=== PATIENT | male | born 1970 | race Caucasian/White ===

== ENCOUNTER 2023-03-19 19:36 | Emergency (ER) | payer SELFPAY ==
[2023-03-19 19:39] VITALS: BP 169/112
[2023-03-19 20:00] LABS: % Basophils 0.7 % (0-2); % Immature Granulocytes 0.6 % (0-0.5); % Lymphocytes 30.2 % (20.5-51.1); % Monocytes 11.4 % (1.7-9.3); % Neutrophils 55.1 % (42.2-75.2); Absolute Basophils 0.1 10^3/uL (0-0.2); Absolute Eosinophils 0.2 10^3/uL (0-0.7); Absolute Immature Granulocytes 0.1 10^3/uL (0-0.05); Absolute Lymphocytes 3.3 10^3/uL (1.2-3.4); Absolute Monocytes 1.2 10^3/uL (0.1-0.6); Absolute Neutrophils 5.9 10^3/uL (1.4-6.5); Hematocrit 44.4 % (39.0-52.0); Hemoglobin 15.7 g/dL (13.0-18.0); Mean Corp Hgb Conc. 35.4 g/dL (33.0-37.0); Mean Corpuscular Hgb 31.2 pg (27.0-31.0); Mean Corpuscular Volume 88.1 fL (80.0-94.0); Mean Platelet Volume 10.7 fL (7.4-10.4); Nucleated Red Blood Cells % 0 % (-); Platelet Count 229 10^3/uL (130-400); Red Blood Cell Count 5.04 10^6/uL (4.70-6.10); Red Cell Dist. Width 12.4 % (11.5-14.5); White Blood Cell Count 10.8 10^3/uL (4.8-10.8)
[2023-03-19 20:12] LABS: ALT (SGPT) 122 U/L (0-50); AST (SGOT) 62 U/L (17-59); Albumin 4.3 g/dl (3.5-5.0); Alkaline Phosphatase 68 U/L (38-126); Blood Urea Nitrogen 18 mg/dl (9-20); Calcium 9.1 mg/dl (8.4-10.2); Carbon Dioxide 31 mmol/L (22-30); Chloride 103 mmol/L (98-107); Glucose 106 mg/dl (70-99); Lipase 125 U/L (23-300); Potassium 4.4 mmol/L (3.5-5.1); Sodium 137 mmol/L (135-145); Total Bilirubin 0.6 mg/dl (0.2-1.3); Total Protein 7.1 g/dl (6.3-8.2); eGFR > 60.00
[2023-03-19 20:23] LABS: Troponin I < 0.012 ng/ml
[2023-03-19 20:33] VITALS: BMI 43.8
[2023-03-19 20:57] VITALS: BP 156/97
--- NOTE | 2023-03-19 22:28 | ED.GENMED ---
History of Present Illness
General
Chief Complaint: Chest Pain
Source: patient
Time Seen by Provider: 03/19/23 21:48
Travel History
Have you had any contact with someone who has COVID-19?: No
Do you have any symptoms of coronavirus? Fever > 100 degrees, chills, cough, shortness of breath, sore throat, loss of taste or smell, muscle aches, or headache?: No
History of Present Illness
History of Present Illness:
52-year-old male with past medical history of GERD and hyperlipidemia presenting to the emergency department from urgent care after he started experiencing some pain in his left upper chest for the last 3 days, attributed to his GERD that he had had
in the past and was taking Nexium for this and while he was having some relief with the Nexium still noted about 2 out of 10 discomfort. Patient went to urgent care and had an EKG done but was advised to come to the ER for further evaluation.
Patient states that he is aware that he is overweight and that his blood pressure was elevated and that he could fix some of the social factors in his life that could contribute to heart disease. He notes that during the 3 days he also made sure
his diet was improved. He also states that he will often drink 2-3 alcoholic beverages per day and he had not been doing this during the last 3 days. Patient denies any family history of cardiac disease. He denies any smoking history. He has no
other concerns at this time. He did state that today the pain did seem a little bit more reproducible to palpation.
Past History
Past History
ED Past Medical History: GERD and Hypercholesterolemia
ED Past Surgical History: Orthopedic
Social History
Tobacco: Non-smoker
Alcohol: Daily
Drug: None
Personal:
Living: with family
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
Review of Systems
Review of Systems
All Other Systems: ROS reviewed and negative except as documented in HPI and ROS
Phy Exam
Physical Exam
Physical Exam:
GENERAL: Alert , in no apparent distress
EYE: conjunctiva clear
NECK: Supple
ENT: o/p clr, mmm.
CARDIAC: Regular rate and rhythm, no murmur
LUNGS: Clear breath sounds bilaterally, no acute respiratory distress, no wheezes/rales/rhonchi
Abdomen: Soft, nontender, nondistended
NEUROLOGICAL: Alert and oriented
SKIN: Warm and dry, skin intact.
MUSCULOSKELETAL: well perfused.
PSYCH: Normal and appropriate interaction.
Scores
Heart Failure Risk
Heart Failure Risk Score: Not Applicable
Heart Score for Chest Pain Patients
STEMI patient?: No
History: Slightly or Non-Suspicious
ECG: Normal
Age: >45 - <65 years
Risk Factors: 1 or 2 Risk Factors
Troponin: </= Normal Limit
Heart Score for Chest Pain Patients: 2
Heart Score Risk: 2.5% MACE over next 6 weeks
Withdrawal Assessment of Alcohol
Withdrawal Assessment Completed?: Not applicable
Course
Orders/Labs/Results
Orders:
Orders
03/19/23 19:38
EKG [Electrocardiogram (*1)] Urgent
Reason for Study: Chest Pain
EKG- Treatment ONCE
03/19/23 19:53
CBC/With Diff [Complete Blood Count/With Diff] Urgent
CMP [Comprehensive Metabolic Panel] Urgent
Lipase Urgent
Troponin I Urgent
03/19/23 22:01
CR Chest - 2 Views Urgent
Comment:
Reason For Exam: chest pain
Abnormal Lab Results
03/19/23
19:53
MCH 31.2 H pg
(27.0-31.0)
MPV 10.7 H fL
(7.4-10.4)
Abs Immat Gran (auto) 0.1 H 10^3/uL
(0-0.05)
Absolute Monos (auto) 1.2 H 10^3/uL
(0.1-0.6)
Immature Gran % 0.6 H %
(0-0.5)
Monocytes % 11.4 H %
(1.7-9.3)
Carbon Dioxide 31 H mmol/L
(22-30)
Glucose 106 H mg/dl
(70-99)
AST 62 H U/L
(17-59)
ALT 122 H U/L
(0-50)
03/19/23 19:53
03/19/23 19:53
Vital Signs
Initial and Last Documented VS:
Initial Vital Signs
Temp Pulse Resp BP Pulse Ox
97.9 F 89 18 169/112 97
03/19/23 19:39 03/19/23 19:39 03/19/23 19:39 03/19/23 19:39 03/19/23 19:39
Last Documented Vital Signs
Temp Pulse Resp BP Pulse Ox
97.9 F 91 17 156/97 97
03/19/23 19:39 03/19/23 21:45 03/19/23 21:45 03/19/23 20:57 03/19/23 19:39
MDM/Problems Addressed
Differential Diagnosis Includes:
GERD, gastritis, muscular etiology, minimal concern for ACS although patient does have some risk factors for this
MDM/Problems Addressed:
52-year-old male present emergency department for evaluation of 3 days of left upper chest wall discomfort. Patient does note since starting his Nexium again he has had improvement of his symptoms. He also notes that pain was a little bit
reproducible today. Patient does have risk factors including likely hypertension given his blood pressure here, hyperlipidemia and he is overweight. Patient also drinks alcohol mostly daily. Patient's workup that was initiated in triage is
largely unremarkable including a negative troponin and a nonischemic EKG. Patient was informed of his LFTs which is likely related to his alcohol use. Will add on a chest x-ray to patient's workup but overall I am not suspicious for ACS but given
his risk factors would like patient to follow-up with cardiology for further outpatient management.
Chronic conditions affecting care: Other (GERD and hyperlipidemia)
Acute Exacerbation and/or Progression of Chronic Illness: Other (GERD)
*Radiology
Radiology exam reviewed: preliminary read by ED provider (Normal chest x-ray)
*Pulse Oximetry
Patient hypoxic: no
*EKG
Interpreted by ED Provider?: Yes
Comparison EKG: no comparison EKG present
Heart Rate: 88
Rate: normal
Rhythm: sinus
[place]: normal axis
Ischemia: no ischemia
*Aligner Barrel And Receiver Interpretation
Rate: normal
Rhythm: sinus
*Critical Care Note
Total Time (30-74mins, 75-104mins- exclusive of procedures): Not Applicable
Patient Management
Escalation/DeEscalation of care consider admission/obs:
Patient's workup is unremarkable. He was advised to continue some of the lifestyle modifications he initiated over the last 3 days. Provided with information for cardiology follow-up as well as notified outpatient cardiology to help expedite
patient's follow-up. Aware of return precautions but otherwise stable for discharge home.
ED Attending Note
-
Portions of this chart may have been created with voice recognition software.� Occasional wrong word or��sound alike� substitutions may have occurred due to the inherent limitations of voice recognition software.
Discharge Plan
Departure
Patient Disposition: Home (Routine Discharge)
Date of Disposition: 03/19/23
Time of Disposition: 22:32
Patient with high blood pressure during this ER visit?: Yes
Discharge Problem:
Chest pain
Instructions: Chest Pain (DC), Chest Pain DCA Follow Up
Prescriptions:
No Action
atorvastatin 20 mg Tablet
20 mg PO DAILY
mesalamine 1.2 gram Tablet,Delayed Release (Dr/Ec)
1.2 g PO TID
Referrals:
Car Campos MD [Active] - (Cardiology)
Interventions
Interventions:
*Risk Screen - Suicide Last Done: 03/19/23 19:39
*General Assessment Last Done: 03/19/23 19:39
*Neglect/Abuse Screening Last Done: 03/19/23 19:39
ED- Fall Risk Assessment Last Done: 03/19/23 20:33
*ED COVID-19 Vaccine History Last Done: 03/19/23 19:39
*Nursing Disposition Last Done: 03/19/23 22:57
ED- Cardiac Assessment Last Done: 03/19/23 20:33
== END 2023-03-19 22:58 | disposition home or self-care (01) ==
LOC: EMR 19:36
PROVIDERS: Emergency Medicine; EMERGENCY PHYSICIAN Emergency Medicine; FAMILY PHYSICIAN Family Medicine
DX: R07.89 Other chest pain (principal); R03.0 Elevated blood-pressure reading, without diagnosis of hypertension; K21.9 Gastro-esophageal reflux disease without esophagitis; E78.00 Pure hypercholesterolemia, unspecified; E66.3 Overweight
CPT/HCPCS: 99283; 71046; 80053; 83690; 84484; 85025; 93005

== ENCOUNTER 2023-05-17 13:03 | Emergency (ER) | payer OTHER, SELFPAY ==
[2023-05-17 13:25] VITALS: BP 161/108
[2023-05-17 13:50] LABS: % Basophils 0.7 % (0-2); % Eosinophils 1.6 % (0-6); % Immature Granulocytes 0.4 % (0-0.5); % Lymphocytes 24.9 % (20.5-51.1); % Monocytes 11.5 % (1.7-9.3); % Neutrophils 60.9 % (42.2-75.2); Absolute Basophils 0.1 10^3/uL (0-0.2); Absolute Eosinophils 0.2 10^3/uL (0-0.7); Absolute Lymphocytes 2.4 10^3/uL (1.2-3.4); Absolute Monocytes 1.1 10^3/uL (0.1-0.6); Absolute Neutrophils 5.9 10^3/uL (1.4-6.5); Hemoglobin 16.7 g/dL (13.0-18.0); Mean Corp Hgb Conc. 36.3 g/dL (33.0-37.0); Mean Corpuscular Hgb 31.7 pg (27.0-31.0); Mean Corpuscular Volume 87.3 fL (80.0-94.0); Mean Platelet Volume 11.2 fL (7.4-10.4); Nucleated Red Blood Cells % 0 % (-); Platelet Count 204 10^3/uL (130-400); Red Blood Cell Count 5.27 10^6/uL (4.70-6.10); Red Cell Dist. Width 12.5 % (11.5-14.5); White Blood Cell Count 9.6 10^3/uL (4.8-10.8)
[2023-05-17 13:57] LABS: ALT (SGPT) 100 U/L (0-50); AST (SGOT) 57 U/L (17-59); Albumin 4.7 g/dl (3.5-5.0); Alkaline Phosphatase 58 U/L (38-126); Blood Urea Nitrogen 15 mg/dl (9-20); Calcium 9.8 mg/dl (8.4-10.2); Carbon Dioxide 25 mmol/L (22-30); Chloride 101 mmol/L (98-107); Glucose 105 mg/dl (70-99); Sodium 136 mmol/L (135-145); Total Bilirubin 0.8 mg/dl (0.2-1.3); Total Protein 7.5 g/dl (6.3-8.2); eGFR > 60.00
[2023-05-17 14:09] LABS: Troponin I < 0.012 ng/ml
[2023-05-17 14:10] LABS: Potassium 4.5 mmol/L (3.5-5.1)
[2023-05-17 15:57] VITALS: BMI 42.0
[2023-05-17 16:02] VITALS: BP 162/117
--- NOTE | 2023-05-17 16:19 | ED.GENMED ---
History of Present Illness
General
Chief Complaint: Chest Pain
Source: patient
Exam Limitations: none
Time Seen by Provider: 05/17/23 15:53
Travel History
Have you had any contact with someone who has COVID-19?: No
Do you have any symptoms of coronavirus? Fever > 100 degrees, chills, cough, shortness of breath, sore throat, loss of taste or smell, muscle aches, or headache?: No
History of Present Illness
History of Present Illness:
52-year-old male history of hyperlipidemia alcohol use presents complaining of ongoing chest burning to the left upper chest radiating to the shoulders bilaterally. This has been fairly constant over the past 2 weeks. He was seen here 2 months ago
for the same. He made some lifestyle modifications at that time and decrease his alcohol intake and started Nexium. His symptoms are improving however the past 2 weeks his symptoms are worse. Traditionally has been made better with milk and
water. He also feels somewhat better when he is walking.. No recent travel or. No cough or fever. No pleuritic. No other complaints at this time
Past History
Past History
ED Past Medical History: GERD and Hypercholesterolemia
ED Past Surgical History: Orthopedic
Social History
Tobacco: Non-smoker
Alcohol: Daily
Drug: None
Personal:
Living: with family
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
Phy Exam
Physical Exam
Physical Exam:
General: Well-appearing male no acute respiratory distress
HEENT: Normocephalic atraumatic
Heart: Regular rate and rhythm no murmurs
Lungs: Clear to auscultation bilaterally no wheezing
Abdomen is soft nontender nondistended no guarding or rebound
Extremities: No cyanosis or edema
Skin: Warm no rash
Scores
Heart Score for Chest Pain Patients
STEMI patient?: No
History: Slightly or Non-Suspicious
ECG: Normal
Age: </= 45 years
Risk Factors: No Risk Factors
Troponin: </= Normal Limit
Heart Score for Chest Pain Patients: 0
Heart Score Risk: 2.5% MACE over next 6 weeks
Course
Orders/Labs/Results
Orders:
Orders
05/17/23 13:20
ECG [Electrocardiogram (*1)] Urgent
Reason for Study: Chest Pain
EKG- Treatment ONCE
05/17/23 13:24
CMP [Comprehensive Metabolic Panel] Urgent
Complete Blood Count/With Diff Urgent
Troponin I Urgent
05/17/23 16:16
Mag Hydrox/Al Hydrox/Simeth [Maalox] 30 ml Phenobarb/Hyoscy/Atropine/Scop [] 10 ml PO NOW
05/17/23 16:17
Mag Hydrox/Al Hydrox/Simeth [Maalox] 30 ml .ROUTE .STK-MED ONE
Phenobarb/Hyoscy/Atropine/Scop [] 10 ml .ROUTE .STK-MED ONE
Abnormal Lab Results
05/17/23
13:24
MCH 31.7 H pg
(27.0-31.0)
MPV 11.2 H fL
(7.4-10.4)
Absolute Monos (auto) 1.1 H 10^3/uL
(0.1-0.6)
Monocytes % 11.5 H %
(1.7-9.3)
Glucose 105 H mg/dl
(70-99)
ALT 100 H U/L
(0-50)
05/17/23 13:24
05/17/23 13:24
Vital Signs
Initial and Last Documented VS:
Initial Vital Signs
Temp Pulse Resp BP Pulse Ox
98.4 F 84 18 161/108 97
05/17/23 13:25 05/17/23 13:25 05/17/23 13:25 05/17/23 13:25 05/17/23 13:25
Last Documented Vital Signs
Temp Pulse Resp BP Pulse Ox
98.4 F 81 14 150/98 93
05/17/23 13:25 05/17/23 17:00 05/17/23 17:00 05/17/23 17:00 05/17/23 17:00
MDM/Problems Addressed
Differential Diagnosis Includes:
Chest pain. Constant in nature somewhat atypical for ACS however given risk factors including age, weight and hyperlipidemia will do cardiac workup. EKG and troponin pending. Patient describes symptoms are made better with milk and water and
Nexium. Question possible GERD. He had a negative workup last time. I reviewed blood work from this visit. Troponin is undetectable. No PE risk factors. He is not tachycardic nor is he hypoxic. Will try GI cocktail
*Critical Care Note
Total Time (30-74mins, 75-104mins- exclusive of procedures): Not Applicable
Update Note
Update Note:
Patient feeling somewhat better after GI cocktail. GERD potentially possibility of source of his chest discomfort. Given his risk factors we will continue to have him see cardiology for follow-up. No indication for admission at this time.
Patient verbalized understanding stable for discharge
ED Attending Note
-
Portions of this chart may have been created with voice recognition software.� Occasional wrong word or��sound alike� substitutions may have occurred due to the inherent limitations of voice recognition software.
Discharge Plan
Departure
Patient Disposition: Home (Routine Discharge)
Date of Disposition: 05/17/23
Time of Disposition: 17:38
Patient with high blood pressure during this ER visit?: No
Discharge Problem:
Chest pain
Instructions: Chest Pain DCA Follow Up
Prescriptions:
New
pantoprazole [Protonix] 40 mg tablet,delayed release (DR/EC)
40 mg PO DAILY Qty: 14 0RF
No Action
atorvastatin 20 mg Tablet
20 mg PO DAILY
mesalamine 1.2 gram Tablet,Delayed Release (Dr/Ec)
1.2 g PO TID
Referrals:
Barry Andrews, DO [Family Provider] -
Activity Restrictions/Additional Instructions:
Please return for worsening symptoms otherwise follow-up with cardiology and/or GI. Take Protonix as directed. Return if worse otherwise
Interventions
Interventions:
*Risk Screen - Suicide Last Done: 05/17/23 15:57
*General Assessment Last Done: 05/17/23 15:57
*Neglect/Abuse Screening Last Done: 05/17/23 15:57
ED- Fall Risk Assessment Last Done: 05/17/23 15:57
*ED COVID-19 Vaccine History Last Done: 05/17/23 13:25
ED- Cardiac Assessment Last Done: 05/17/23 15:57
Discharge Date and Time
Print Language: KOREAN
[2023-05-17] MEDS: MAALOX 40 PO (16:25)
[2023-05-17 17:00] VITALS: BP 150/98
== END 2023-05-17 17:45 | disposition home or self-care (01) ==
LOC: EMR 13:03
PROVIDERS: Emergency Medicine; EMERGENCY PHYSICIAN Emergency Medicine; FAMILY PHYSICIAN Family Medicine
DX: R07.89 Other chest pain (principal); K21.9 Gastro-esophageal reflux disease without esophagitis; E78.00 Pure hypercholesterolemia, unspecified
CPT/HCPCS: 99283; 80053; 84484; 85025; 93005

== ENCOUNTER 2024-07-19 18:28 | Inpatient (IN) | payer OTHER, SELFPAY ==
[2024-07-19] VITALS (10 sets, daily range): BP systolic 123–159; BP diastolic 61–107; BMI 40.0
[2024-07-19 12:09] LABS: Hematocrit 37.6 % (39.0-52.0); Hemoglobin 13.1 g/dL (13.0-18.0); Mean Corp Hgb Conc. 34.8 g/dL (33.0-37.0); Mean Corpuscular Volume 88.9 fL (80.0-94.0); Platelet Count 36 10^3/uL (130-400); Red Blood Cell Count 4.23 10^6/uL (4.70-6.10); Red Cell Dist. Width 13.6 % (11.5-14.5); White Blood Cell Count 5.8 10^3/uL (4.8-10.8)
[2024-07-19 12:10] LABS: Band Neutrophils 13 % (0-3); Lymphocytes 21 % (20-51); Monocytes 10 % (2-9); Normal RBC Morphology Yes; Platelets Checked Yes; Segmented Neutrophils 56 % (42-75); Total Cells Counted 100
[2024-07-19 12:18] LABS: ALT (SGPT) 284 U/L (0-50); AST (SGOT) 318 U/L (17-59); Alkaline Phosphatase 120 U/L (38-126); Blood Urea Nitrogen 18 mg/dl (9-20); Calcium 8.3 mg/dl (8.4-10.2); Carbon Dioxide 24 mmol/L (22-30); Chloride 102 mmol/L (98-107); Glucose 172 mg/dl (70-99); Sodium 134 mmol/L (135-145); Total Bilirubin 8.4 mg/dl (0.2-1.3); eGFR > 60.00
--- NOTE | 2024-07-19 12:24 | ED.GENMED ---
History of Present Illness
General
Chief Complaint: Abdominal Symptoms
Source: patient and spouse
Exam Limitations: none
Time Seen by Provider: 07/19/24 11:56
History of Present Illness
History of Present Illness:
53yoM with a history of hyperlipidemia and ulcerative colitis presenting with his for evaluation of fevers. Symptoms have been ongoing for about 2 weeks. He is having daily fevers with a Tmax of 102.7. He is also having body aches, chills,
and malaise. He was seen at urgent care 4 days ago for the symptoms and had blood work. Platelets were mildly low at 106 but workup was otherwise unremarkable and he was told he likely had a virus. Patient followed up with his PCP yesterday and a
Lyme test was ordered which he was supposed to have done today. started to notice jaundice within the last 24 hours and his urine has started to appear a dark brown so he decided to come to the ED. He denies any recent travel. He thinks he
may have eaten a raw hamburger over Memorial weekend. He has also been doing a lot of work outside recentely. No known tick bites.
Past History
Past History
ED Past Medical History: GERD and Hypercholesterolemia
ED Past Surgical History: Orthopedic
Social History
Tobacco: Non-smoker
Alcohol: Daily
Drug: None
Personal:
Living: with family
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
Phy Exam
General Physical Exam
General Presentation: no apparent distress
General Skin: warm and dry
General Habitus: normal
General Mental: alert
ENT Exam
ENT Exam: normocephalic
Eye Exam
Eye Exam: other (Scleral icterus)
Cardiovascular Exam
Cardiovascular Exam: tachycardia
Pulmonary Exam
Pulmonary Exam: lungs clear, no respiratory distress, no rales, no crackles, no rhonchi and no wheezing
Gastrointestinal Exam
Gastrointestinal Exam: non tender, soft and non distended
Neurological Exam
Neurological Exam: alert
Dorys Coma Scale
Eye Opening: Spontaneous
Verbal Response: Oriented
Motor Response: Obeys Commands
GCS Total Score: 15
Skin Exam
Skin Exam: warm/dry and other (+Jaundice )
Psychiatric Exam
Psychiatric Exam: normal mood/affect
Course
Orders/Labs/Results
Orders:
Orders
07/19/24 11:13
Complete Blood Count/With Diff Urgent
Comprehensive Metabolic Panel Urgent
Lipase Urgent
Manual Differential Urgent
07/19/24 12:22
0.9% Sodium Chloride 1000 ml [Nss] 1,000 ml IV BOLUS
07/19/24 12:23
CT Abd/pelvis W Iv Cont Urgent
Comment:
Reason For Exam: fever, jaundice
CR Chest - 2 Views Urgent
Comment:
Reason For Exam: fever
07/19/24 12:47
COVID-19 Antigen Urgent
Source: Nasal Swab
Urinalysis Reflex To Culture Urgent
Date Specimen was Collected: 07/19/24
Time Specimen was Collected: 11:05
Urine Microscopic Reflex Cult Urgent
Influenza A+B Rapid Molecular Urgent
CHACHA Source: Nasal Swab
Specimen Description:
Urine Culture Urgent
CHACHA Source: U
Specimen Description:
Date Specimen was Collected: 07/19/24
Time Specimen was Collected: 11:05
07/19/24 13:58
Blood Culture Q30M
CHACHA Source: Blood/Venous
Specimen Description:
07/19/24 13:59
Hepatitis A IgM Antibody Urgent
Hepatitis B Core Ab, IgM Urgent
Hepatitis B Surface Antibody Urgent
Hepatitis B Surface Antigen Urgent
Hepatitis C Antibody Urgent
Lactate Level [Lactic Acid] Urgent
Lyme Progressive Urgent
Prothrombin Time Urgent
Tylenol [Acetaminophen] Urgent
Blood Parasites Urgent
CHACHA Source: Blood/Venous
Specimen Description:
07/19/24 14:58
Blood Culture Q30M
CHACHA Source: Blood/Venous
Specimen Description:
07/19/24 15:24
Piperacillin/Tazo 4.5 Gram [Zosyn] 4.5 gram in 100 ml IV NOW
07/19/24 15:35
0.9% Sodium Chloride 1000 ml [Nss] 1,000 ml IV BOLUS
07/19/24 16:24
Azithromycin 500 mg/250 ml [Zithromax Infusion] 500 mg in 250 ml IV NOW
07/19/24 17:30
Admit/Transfer Patient As Directed
Co-Sign Provider:
Level of Care: Inpatient admission
Assign to:: Telemetry
Physician / Group: [email or web address]
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
Reason for Telemetry: Other
Other Reason for Telemetry: sepsis
Date to Stop Telemetry: 07/21/24
Time to Stop Telemetry: 11:00
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
Expected length of stay greater than two midnights?: Yes
ELOS- Estimated Length of Stay in days: 3
I certify the patient meets the requirements for IP care: Yes
07/19/24 17:34
Code Status As Directed
Resuscitation Status: Full Code
07/21/24 11:00
DC Protocol for Telemetry ONCE
Abnormal Lab Results
07/19/24 07/19/24 07/19/24
11:13 12:47 13:59
RBC 4.23 L 10^6/uL
(4.70-6.10)
Hct 37.6 L %
(39.0-52.0)
Plt Count 36 L 10^3/uL
(130-400)
Band Neutrophils 13 H %
(0-3)
Monocytes (Manual) 10 H %
(2-9)
PT 15.9 H Sec
(11.4-14.6)
Sodium 134 L mmol/L
(135-145)
Glucose 172 H mg/dl
(70-99)
Calcium 8.3 L mg/dl
(8.4-10.2)
Total Bilirubin 8.4 H mg/dl
(0.2-1.3)
AST 318 H U/L
(17-59)
ALT 284 H U/L
(0-50)
Albumin 3.4 L g/dl
(3.5-5.0)
Urine Ketones 1+ A
(Negative)
Ur Occult Blood Reflex 4+ A
(Negative)
Urine Nitrite (Reflex) Positive A
(Negative)
Urine Bilirubin 3+ A
(Negative)
Urine Urobilinogen 4+ A
(Neg - 1+)
Leukocyte Esterase Rfl 2+ A
(Negative)
Urine Bacteria (Reflex) Many A
(Negative)
Urine Albumin (Reflex) 4+ A
(Neg - Trace)
Acetaminophen < 10 L ug/ml
(10-30)
07/19/24 11:13
07/19/24 11:13
Vital Signs
Initial and Last Documented VS:
Initial Vital Signs
Temp Pulse Resp BP Pulse Ox
99.5 F 116 20 133/107 97
07/19/24 11:00 07/19/24 11:00 07/19/24 11:00 07/19/24 11:00 07/19/24 11:00
Last Documented Vital Signs
Temp Pulse Resp BP Pulse Ox
102.8 F H 111 20 131/86 93
07/19/24 15:33 07/19/24 13:00 07/19/24 13:12 07/19/24 12:00 07/19/24 13:00
MDM/Problems Addressed
Differential Diagnosis Includes:
53yoM here with fevers and flu-like symptoms x 2 weeks. Daily fevers up to 102.7. Started to notice jaundice x 24 hours. HR 116 on arrival. Remainder of triage vitals are normal. Scleral icterus noted on exam. Differential diagnosis includes but is
not limited to: tick borne illness, viral illness, cholecystitis, cholangitis, malignancy, sepsis
Initial ED plan: Check full workup including blood cultures, Lyme testing, blood parasite smear, INR, COVID/flu swab, CXR, and CT abdomen.
*Pulse Oximetry
Patient hypoxic: no (97%)
*Critical Care Note
Total Time (30-74mins, 75-104mins- exclusive of procedures): Not Applicable
Update Note
Update Note:
Labs reveal a platelet count of 36, bands of 13%, and total bilirubin of 8.4. There was a delay in CT/workup due to difficult IV access. IV Zosyn ordered while workup was in progress. 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
with 9% parasitemia. IV azithromycin ordered and patient admitted for further management.
ED Attending Note
-
Portions of this chart may have been created with voice recognition software.� Occasional wrong word or��sound alike� substitutions may have occurred due to the inherent limitations of voice recognition software.
Discharge Plan
Departure
Patient Disposition: Admit
Date of Disposition: 07/19/24
Time of Disposition: 16:55
Presentation/result/management discussed w/ accepting MD/DO: Hospitalist
Discharge Problem:
Babesiosis, Thrombocytopenia, Jaundice
Prescriptions:
No Action
mesalamine 1.2 gram Tablet,Delayed Release (Dr/Ec)
1.2 g PO TID
metformin 500 mg Tablet
500 mg PO DAILY
Patient Comments:
as of 07/18/24 patient md told him n ot to take this anymore
acetaminophen [Tylenol] 325 mg Tablet
650 mg PO Q4HPRN PRN (Reason: mild pain)
Theragen Tablet
1 tab PO DAILY
ibuprofen [Advil] 200 mg Tablet
400 mg PO Q6HPRN PRN (Reason: mild pain)
rosuvastatin [Crestor] 20 mg Tablet
20 mg PO QPM
Referrals:
Sp Lindsey MD [Family Provider]
Discharge Date and Time
Print Language: MALAGASY
[2024-07-19 12:54] LABS: Albumin 3.4 g/dl (3.5-5.0); Potassium 4.7 mmol/L (3.5-5.1)
[2024-07-19 13:06] LABS: Urine Albumin 4+ (Neg - Trace); Urine Bilirubin 3+ (Negative); Urine Character Cloudy (Clear); Urine Color Amber; Urine Glucose Negative (Negative); Urine Ketone 1+ (Negative); Urine Leukocyte 2+ (Negative); Urine Nitrite Positive (Negative); Urine Occult Blood 4+ (Negative); Urine Specific Gravity 1.015 (<1.030); Urine Urobilinogen 4+ (Neg - 1+)
[2024-07-19 13:09] LABS: Lipase 71 U/L (23-300)
[2024-07-19 13:34] LABS: COVID-19 Antigen Negative (Negative)
[2024-07-19 13:46] LABS: Urine Bacteria Many (Negative); Urine Red Blood Cell 0-2 /HPF (0-2); Urine Squamous Cell 0-2 /LPF (Few)
[2024-07-19] MEDS: NSS 1000 IV ×3 (14:11→20:24)
[2024-07-19 14:26] LABS: Lactic Acid 1.2 mmol/L (0.7-2.0)
[2024-07-19 14:47] LABS: Acetaminophen < 10 ug/ml (10-30)
[2024-07-19 14:52] LABS: INR 1.21; PT 15.9 Sec (11.4-14.6)
[2024-07-19] MEDS: ZOSYN 100 IV (15:38)
[2024-07-19] MEDS: ZITHROMAX INFUSION 250 IV (17:03)
--- NOTE | 2024-07-19 17:08 | HPS.HSE ---
Addendum entered and electronically signed by Rigoberto Atkins MD 07/20/24 09:35:
Correction:
Sepsis due to Babesiosis Percent parasitemia: 9%
POS Blood parasite smear came back positive for babesiosis.
CT suggestive of Bibasilar PNA
Of note : [place] the [place] , felt like he j=had insect bite on [address] but did not see Ticks
- f/i T , [facility]
- BCx sent
- NS septic fluid
- will start <del>IV</del> PO atovaquone 750mg BID and cont IV AZT 500 mg daily per ID consult
- LDH daily 4 days
- Tylenol PRN
- ID consult
Addendum entered and electronically signed by Rigoberto Atkins MD 07/19/24 21:34:
Immunocompetent host
Noted severe thrombocytopenia
CT AP suggest Hepatomegaly and diffuse hepatic steatosis. Bandlike areas of hypoattenuation within the spleen may reflect old infarcts and/or underlying hemangiomas.
Suspect moderate to severe babesiosis with POS peripheral smear for 9 % percent parasitemia
Original Note:
Family Physician
-
Family Physician: Sp Lindsey MD
Chief Complaint
-
daily fever for last 2 weks
History of Present Illness
HPI
53M HX hyperlipidemia and ulcerative colitis presenting with his for evaluation of fevers for last 2weeks
- daily fevers with a T max of 102.
- POS body aches, chills, and malaise
- seen at urgent care 4 days ago for the symptoms and had blood work
- Low Platelets at 106 but workup was otherwise unremarkable and he was told he likely had a virus.
- Patient followed up with his PCP yesterday and a Lyme test was ordered.
- started to notice jaundice within the last 24 hours and his urine has started to appear a dark brown.
- He was in the wood on Wednesday , felt like he j=had insect bite on [address] but did not see Ticks
He denies any recent travel. He thinks he may have eaten a raw hamburger over .
Medical History
Past Medical History
Past Medical History: Reports GERD and Hypercholesterolemia
Past Surgical History: Reports None
Social History
Tobacco: Non-smoker
Alcohol: Occasional
Drug: None
Personal:
Family History
Family History: Not pertinent
Allergies / Home Medications
Allergies reflects when Allergies were last updated in [employer].
Home Medications with original date entered in [employer]
Allergy/Medication List:
Allergies
Allergy/AdvReac Type Severity Reaction Status Date / Time
No Known Allergies Allergy Verified 07/19/24 11:00
Home Medications
atorvastatin 20 mg tablet 20 mg PO DAILY 03/19/23
mesalamine 1.2 gram tablet,delayed release 1.2 g PO TID 03/19/23
pantoprazole 40 mg tablet,delayed release (Protonix) 40 mg PO DAILY #14 tabs 05/17/23
Review of Systems
-
Constitutional: Reports See HPI and Fever
EENT: Reports No Symptoms
Respiratory: Reports No Symptoms
Cardiac: Reports No Symptoms
Abdomen/GI: Reports No Symptoms
: Reports No Symptoms
Musculoskeletal: Reports No Symptoms
Skin: Reports No Symptoms
Neurological: Reports No Symptoms
Endocrine: Reports No Symptoms
Hematologic/Lymphatic: Reports No Symptoms
Psych: Reports No Symptoms
Physical Exam
Vital Signs
Vital Signs
Temp Pulse Resp BP Pulse Ox
102.8 F H 111 20 131/86 93
07/19/24 15:33 07/19/24 13:00 07/19/24 13:12 07/19/24 12:00 07/19/24 13:00
Physical Exam
General: Well Developed, Well Nourished and No Apparent Distress
HEENT: NormoCephalic, Moist mucous membranes and Atraumatic
Respiratory: Clear
Cardiac: S1/S2 and Regular Rhythm; No Murmur or Rub
GI: Soft, Non Tender, Non Distended and Normal Bowel Sounds; No Organomegaly
Rectal: Deferred by Provider
Musculoskeletal: No Clubbing, No Cyanosis and No Edema
Skin: No Rash
Neuro: Nonfocal/grossly intact
Laboratory Results
-
07/19/24 11:13
07/19/24 11:13
Laboratory Results
PT 15.9 Sec (11.4-14.6) H 07/19/24 13:59
INR 1.21 07/19/24 13:59
Lactic Acid 1.2 mmol/L (0.7-2.0) 07/19/24 13:59
Total Bilirubin 8.4 mg/dl (0.2-1.3) H 07/19/24 11:13
AST 318 U/L (17-59) H 07/19/24 11:13
ALT 284 U/L (0-50) H 07/19/24 11:13
Alkaline Phosphatase 120 U/L (38-126) 07/19/24 11:13
Lipase 71 U/L (23-300) 07/19/24 11:13
Data Reviewed
-
CT Scan: Report Reviewed by me
Lab Data: Labs Reviewed by me
Impression/Plan
-
Vital Signs
Temp Pulse Resp BP Pulse Ox
102.8 F H 111 20 131/86 93
07/19/24 15:33 07/19/24 13:00 07/19/24 13:12 07/19/24 12:00 07/19/24 13:00
Laboratory Tests
05/17/23 07/19/24 07/19/24
13:24 11:13 13:59
WBC 5.8
Hgb 13.1
MCV 88.9
Plt Count 204 36 L
INR 1.21
Sodium 134 L
Potassium 4.7
Carbon Dioxide 24
Creatinine 1.0
eGFR > 60.00
Lactic Acid 1.2
Calcium 8.3 L
Total Bilirubin 8.4 H
AST 318 H
ALT 284 H
Alkaline Phosphatase 120
Albumin 3.4 L
CXR pending report
07/20/23 CT Abd/pelvis W Iv Cont
1. Questionable cystitis. Otherwise no significant acute abnormality identified in the abdomen or pelvis, as described above.
2. Bibasilar pneumonia.
3. Hepatomegaly and diffuse hepatic steatosis.
4. 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
ASSESSMENT & PLAN
Sepsis due to Babesiosis Percent parasitemia: 9%
POS Blood parasite smear came back positive for babesiosis.
CT suggestive of Bibasilar PNA
Of note : He was [place] the [place] on [place] , felt like he j=had insect bite on [address] but did not see Ticks
- f/i T , [facility]
- BCx sent
- NS septic fluid
- will start IV atovaquone 750mg BID and cont IV AZT 500 mg daily per ID consult
- LDH daily 4 days
- Tylenol PRN
- ID consult
HX UC
- on Mesalamine
HX HLD
- on Atorvastatin
DVT Px: SCD
Full code
IP TLM
[2024-07-19] MEDS: TYLENOL 650 MG PO (20:24)
[2024-07-19] MEDS: MEPRON SUSPENSION 750 MG PO (20:24)
[2024-07-19] MEDS: CRESTOR 20 MG PO (20:24)
[2024-07-19] MEDS: MELATONIN 5 MG PO (21:17)
[2024-07-20] VITALS (10 sets, daily range): BP systolic 122–152; BP diastolic 70–95
[2024-07-20] MEDS: TYLENOL 650 MG PO ×2 (03:13→10:38)
[2024-07-20] MEDS: MEPRON SUSPENSION 750 MG PO ×2 (07:28→20:32)
--- NOTE | 2024-07-20 07:37 | W.PN.HOSP.TC ---
Today's Communication/Plan
-
.
Assessment / Plan
Assessment / Plan
Assessment:
53yo M pmh DM, HLD, UC, GERD admitted for babesiosis. Reports fevers over the last two weeks, +myalgias, + chills, + malaise. Plt 106 at urgent care four days [facility]. Plt 36 in ED. Jaundice and dark brown urine started 24h prior to admission. Done a
lot of work outside recently. No known tick bites. Denies recent travel.
Plan:
Sepsis secondary to babesiosis
- POS blood smear: babesiosis
- Bcx pending
- atovaquone, AZT
- appreciate ID input
- lactate wnl
- LDH daily x4 days
- hold tylenol for transaminitis
- advil
Acute respiratory failure
- nebs
- on O2
Transaminitis
- hold nephrotoxic agents
Diarrhea
- stool studies - neg c diff
UC
- cont mesalamine
HLD
- cont statin
DM
- cont metformin
Diet: regular
DVT ppx: SCD
Code status: FULL CODE
Anticipated Discharge: > 48 hours
Subjective/Interval History
-
Date of Service: July 20, 2024
Spiked a fever overnight up to 102.4F.
Objective Data
-
Labs:
Laboratory Results
07/20/24
07:12
WBC Pending
Hgb Pending
Hct Pending
Plt Count Pending
Sodium Pending
Potassium Pending
Chloride Pending
Carbon Dioxide Pending
BUN Pending
Creatinine Pending
Glucose Pending
Calcium Pending
Total Bilirubin Pending
AST Pending
ALT Pending
Alkaline Phosphatase Pending
Vital Signs:
Vital Signs
Temp Pulse Resp BP Pulse Ox
99.6 F 110 16 122/77 92
07/20/24 07:21 07/20/24 07:21 07/20/24 07:21 07/20/24 07:21 07/20/24 07:21
I&O
07/19/24 07/20/24 07/21/24
06:59 06:59 06:59
Intake Total 0 / 0
Balance 0 / 0
Review of Systems
-
History Source: Patient
Constitutional: Reports Fever, No Appetite, Sleep Disturbance, Night Sweats and Chills
Respiratory: Reports Cough, Hemoptysis and Trouble Breathing
Cardiac: Reports No Symptoms
Abdomen/GI: Reports Diarrhea
Genitourinary: Reports Dark Urine
Musculoskeletal: Reports Myalgias
Neuro: Reports Weakness
Physical Exam
-
General: Well Developed, Well Nourished and Morbidly Obese
HEENT: Normocephalic, Atraumatic, Nose Appears Normal, Ears Appear Normal, Oxygen and Other (scleral icterus)
Respiratory: Wheezes and Accessory Resp Muscle Use
Cardiac: Regular Rhythm, S1/S2 and Tachycardic
GI: Nontender, Normal Bowel Sounds and Distended
Musculoskeletal: No Clubbing, No Cyanosis and No Edema
Skin: Warm, Dry, Jaundice and IV Access / Catheter Site
Neuro: Awake, Alert and Oriented
Psych: Calm
[2024-07-20 07:47] LABS: Hematocrit 31.2 % (39.0-52.0); Hemoglobin 11.1 g/dL (13.0-18.0); Mean Corp Hgb Conc. 35.6 g/dL (33.0-37.0); Mean Corpuscular Hgb 31.4 pg (27.0-31.0); Mean Corpuscular Volume 88.1 fL (80.0-94.0); Mean Platelet Volume 13.8 fL (7.4-10.4); Platelet Count 53 10^3/uL (130-400); Red Blood Cell Count 3.54 10^6/uL (4.70-6.10); Red Cell Dist. Width 13.9 % (11.5-14.5); White Blood Cell Count 7.6 10^3/uL (4.8-10.8)
[2024-07-20] MEDS: NSS IV (08:09)
[2024-07-20 08:16] LABS: ALT (SGPT) 236 U/L (0-50); AST (SGOT) 361 U/L (17-59); Albumin 2.8 g/dl (3.5-5.0); Alkaline Phosphatase 101 U/L (38-126); Blood Urea Nitrogen 24 mg/dl (9-20); Calcium 7.3 mg/dl (8.4-10.2); Carbon Dioxide 25 mmol/L (22-30); Chloride 107 mmol/L (98-107); Estimated Creatinine Clearance 81 ml/min; Glucose 115 mg/dl (70-99); Potassium 4.5 mmol/L (3.5-5.1); Sodium 137 mmol/L (135-145); Total Bilirubin 9.4 mg/dl (0.2-1.3); eGFR > 60.00
[2024-07-20 08:35] LABS: LDH 2394 U/L (120-246)
[2024-07-20 08:48] LABS: Absolute Neutrophils -Man Diff 5.3 10^3/uL (1.4-6.5); Band Neutrophils 16 % (0-3); Lymphocytes 20 % (20-51); Monocytes 10 % (2-9); Normal RBC Morphology No; Platelets Checked Yes; Segmented Neutrophils 54 % (42-75)
[2024-07-20 08:55] LABS: Anisocytosis 1+; Polychromasia Slight; Total Cells Counted 100
--- NOTE | 2024-07-20 09:56 | CM ---
Met with patient at bedside; initial assessment completed
Pharmacy verified: [facility] @ [address] [facility]
Patient and live in a split level home; 2 steps to enter; 5 steps between levels; railings on stairs; upper level bath has stall shower
PLOF: reported that he was independent with ambulation, stairs, ADLs; no DME; drives; self-employed
NO SNF or Home Health utilization history
will transport home
Discharge plan to be determined pending hospital course; [employer] Rep will monitor for discharge needs/services
[2024-07-20] MEDS: DUONEB 3 ML INH (11:33)
--- NOTE | 2024-07-20 12:20 | CON.ID ---
Consultation
-
Date/Time Consultation Requested: 07/19/2024 1925
Date/Time Consultation Performed: 07/20/2024 1200
Requesting Provider: Dr. Atkins
Performing Provider: Dr. Mehta
Reason for Consultation: Babesiosis
Chief Complaint / Past History
History of Present Illness
Car Echevarria is a 53-year-old man being evaluated at the request of Dr. Spencer in regards to babesiosis. History is obtained from chart review, along with patient interview. Additional history was obtained from the patient's and daughter who are
at the bedside.
The patient has a significant past medical history of ulcerative colitis and is maintained on mesalamine. He reports he was in his usual state of health until the when he felt that he may have eaten an undercooked hamburger.
Several days after the weekend he developed fevers and chills, and this persisted for a week. The following weekend he was seen at an urgent care and [place], where blood work revealed his platelets to be 106. Earlier this week he saw his
PCP, and his symptomatology was felt to be consistent with a possible tickborne illness and he was ordered lab work, but he continued to feel unwell and came to the hospital for further evaluation. Here, peripheral smear revealed Babesia, and
Infectious Diseases is asked to comment upon further antimicrobial therapy.
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 He has a home garden. He does not recall seeing any ticks on him. He has had no recent travel.
Past History
Additional Past Medical History:
Ulcerative colitis
Dyslipidemia
Additional Past Surgical History:
Knee surgery
Allergy History:
symbicot Allergy (Uncoded 07/19/24 21:23)
Hives
Medications Reviewed: Yes
Current Antibiotics:
Atovaquone
Azithromycin
Social History
Tobacco: Non-Smoker
Alcohol: None
Drug: None
Personal:
Living: With Family
Employment: Employed
Family History
Family History: Not Pertinent
Review of Systems
Vital Signs
Temp Pulse Resp BP Pulse Ox
102.1 F H 114 18 134/72 94
07/20/24 11:31 07/20/24 11:35 07/20/24 11:35 07/20/24 11:24 07/20/24 11:35
Physical Exam
Physical Exam
Constitutional: No Acute Distress, Comfortable and Non-toxic
Head: Normocephalic
Eyes: Pupils Equal, Pupils Round, No Conjunctival Hemorrhage and Other (Scleral icterus noted)
Oral: No Thrush and No Ulcers
Cardiovascular: S1/S2; Negative S3/S4
Pulmonary: Clear; Negative Wheezes, Rales or Rhonchi
Gastrointestinal: Soft, Non Tender and Non Distended
Extremities: Negative Edema, Cyanosis or Erythema
Skin: Warm and Dry
Neurological: Awake and Alert
Psychological: Calm
Lab / Diagnostic Study Results
07/20/24 07:12
07/20/24 07:12
Total Counted 100 07/20/24 07:12
Abs Neuts (Manual) 5.3 10^3/uL (1.4-6.5) 07/20/24 07:12
Segmented Neutrophils 54 % (42-75) 07/20/24 07:12
Band Neutrophils 16 % (0-3) H 07/20/24 07:12
Lymphocytes (Manual) 20 % (20-51) 07/20/24 07:12
PT 15.9 Sec (11.4-14.6) H 07/19/24 13:59
INR 1.21 07/19/24 13:59
Lactic Acid Cancelled 07/19/24 23:25
Ur Squamous Epith Cells 0-2 /LPF (Few) 07/19/24 12:47
Microbiology Results
Micro:
07/19/24 12:47 Urine Culture - Final
Urine NO GROWTH
07/20/24 08:34 C. difficile GDH Antigen & Toxins - Final
Feces/Stool Negative for toxigenic C.difficile
- Final
Negative for Norovirus GI and GII.
07/20/24 08:34 Salmonella/Shigella Culture - Pending
Feces/Stool Campylobacter Culture - Pending
Shiga Toxin Test - Pending
07/19/24 13:59 Blood Parasites Smear - Final
Blood/Venous Babesia species
07/19/24 14:58 Blood Culture - Pending
Blood/Venous
07/19/24 13:58 Blood Culture - Pending
Blood/Venous
07/19/24 12:47 Influenza Types A & B (WILFRID) - Final
Nasal Swab Negative for Influenza A & B, NAAT
Negative results must be combined with clinical observations
and patient history.
Nucleic Acid Amplification test (NAAT)performed on the
[employer] platform.
Assessment / Plan
Acute babesiosis
Fever
Anemia
Thrombocytopenia
Elevated bilirubin
Transaminitis
Recommendations:
Case discussed with admitting attending last evening. Patient noted to have a 9% parasitemia.
Patient was immediately started on atovaquone and Azithromycin.
Will repeat parasite load today.
EKG being checked. If QTc acceptable, will increase Azithromycin to 1 g IV every 24 hours.
Continue with atovaquone at current dosing.
Serial (daily) parasite load testing.
Follow LFTs
Trend LDH.
Monitor white count and temperature curve.
Follow creatinine closely.
Care Review
Plan reviewed with: Physician (Hospitalist) and Other (Clinical pharmacist)
[2024-07-20] MEDS: IMODIUM 2 MG PO (12:30)
[2024-07-20] MEDS: NON-FORMULARY ITEM PO ×2 (12:52)
[2024-07-20 13:43] LABS: Lyme Antibody Screen, EIA Negative (Negative)
[2024-07-20] MEDS: ZITHROMAX 510 MG IV (13:59)
--- NOTE | 2024-07-20 14:40 | TRANSFER ---
Report called over to IMU Rn Michele. pt will be transported in hospital bed on o2 and batch room technician with abx infusing and family at bedside.
--- NOTE | 2024-07-20 15:00 | PTCARENOTE ---
Pt transferred from TELE. On arrival pt tachypneic and 94% on 4L NC, Sinus tach in 120s, febrile 101.9 w/ chills. Voided 150 mL dark brown urine. Productive cough w/ de [place]ant[place] and bloody sputum. Motrin given for fever. 2nd IV placed and labs sent.
Daughter and at bedside.
[2024-07-20] MEDS: MOTRIN 200 MG PO ×2 (15:02→20:32)
[2024-07-20 16:21] LABS: AST (SGOT) 409 U/L (17-59); Albumin 3.1 g/dl (3.5-5.0); Alkaline Phosphatase 115 U/L (38-126); Blood Urea Nitrogen 25 mg/dl (9-20); Calcium 7.4 mg/dl (8.4-10.2); Carbon Dioxide 24 mmol/L (22-30); Chloride 103 mmol/L (98-107); Estimated Creatinine Clearance 81 ml/min; Glucose 143 mg/dl (70-99); Potassium 4.3 mmol/L (3.5-5.1); Sodium 135 mmol/L (135-145); Total Bilirubin 10.7 mg/dl (0.2-1.3); Total Protein 6.8 g/dl (6.3-8.2); eGFR > 60.00
[2024-07-20] MEDS: NON-FORMULARY ITEM 1.2 GRAMS PO ×2 (16:36→22:41)
[2024-07-20 16:47] LABS: ALT (SGPT) 253 U/L (0-50)
[2024-07-20 17:44] LABS: Hepatitis B Surface Antigen Negative (Negative)
[2024-07-20] MEDS: MELATONIN 5 MG PO (22:41)
--- NOTE | 2024-07-20 22:58 | PTCARENOTE ---
Cannot verify vital signs prior to 1900.
[2024-07-21] VITALS (12 sets, daily range): BP systolic 112–156; BP diastolic 52–96
--- NOTE | 2024-07-21 00:35 | PTCARENOTE ---
Assumed care for patient overnight. Pt AAOx3. Pt oral temp 100.5 at beginning of shift. Pt diaphoretic. Administered PRN Motrin see APR. Pt oral temp now 98.9. Pt currently on 5L NC SpO2 95%. Pt SpO2 85% while ambulating to [facility]. Pt severely dyspneic
on exertion. Icterus to eye. Sinus tach on the monitor no change. Pt has a productive strong cough, coughing up blood tinged thick sputum. Pt having loose stool, gelatinous yellow in color. Urine is brown. Abdomen is round descended, bowel sounds
present. Pt denies any pain. Pt family at bedside at change of shift. Pt ringing appropriately call miller within reach.
[2024-07-21] MEDS: MOTRIN 200 MG PO ×3 (01:16→21:00)
[2024-07-21 04:15] LABS: Hematocrit 28.8 % (39.0-52.0); Hemoglobin 10.1 g/dL (13.0-18.0); Mean Corp Hgb Conc. 35.1 g/dL (33.0-37.0); Mean Corpuscular Hgb 30.7 pg (27.0-31.0); Mean Corpuscular Volume 87.5 fL (80.0-94.0); Mean Platelet Volume 13.6 fL (7.4-10.4); Platelet Count 80 10^3/uL (130-400); Red Blood Cell Count 3.29 10^6/uL (4.70-6.10); Red Cell Dist. Width 14.1 % (11.5-14.5); White Blood Cell Count 11.7 10^3/uL (4.8-10.8)
[2024-07-21 04:38] LABS: ALT (SGPT) 219 U/L (0-50); AST (SGOT) 392 U/L (17-59); Albumin 2.9 g/dl (3.5-5.0); Alkaline Phosphatase 106 U/L (38-126); Blood Urea Nitrogen 29 mg/dl (9-20); Calcium 7.5 mg/dl (8.4-10.2); Carbon Dioxide 24 mmol/L (22-30); Chloride 105 mmol/L (98-107); Estimated Creatinine Clearance 75 ml/min; Glucose 117 mg/dl (70-99); Potassium 4.1 mmol/L (3.5-5.1); Sodium 135 mmol/L (135-145); Total Bilirubin 10.5 mg/dl (0.2-1.3); Total Protein 6.4 g/dl (6.3-8.2); eGFR > 60.00
[2024-07-21 04:59] LABS: LDH 3123 U/L (120-246)
[2024-07-21] MEDS: NON-FORMULARY ITEM 1.2 GRAMS PO ×3 (08:18→22:21)
[2024-07-21] MEDS: MEPRON SUSPENSION 750 MG PO ×2 (08:18→21:00)
--- NOTE | 2024-07-21 08:23 | PTCARENOTE ---
Pt reported feeling SOB. O2 sat as low as 82% on 4L NC. increased to 6L then added NRB mask for recovery. Pt reovered to 100%. currently on 6L NC, Sat 94%. Dr. Brito notified, chest X ray ordered.
--- NOTE | 2024-07-21 09:46 | PTCARENOTE ---
Pt remains on 6L NC but will desat with movement. Updated Dr. Brito, will place pt on midflow cannula.
[2024-07-21] MEDS: LASIX 20 MG IV (10:07)
--- NOTE | 2024-07-21 11:06 | W.PN.ID1 ---
Date of Service
Date of Service: July 21, 2024
Today's Communication
Continue antibiotics.
Assessment / Plan
Acute babesiosis
Fever
Anemia
Thrombocytopenia
Elevated bilirubin
Transaminitis
Recommendations:
Initial parasitemia was 9%, but improved to 2.7% yesterday. Currently awaiting today's result.
Increasing O2 requirements noted. Doubt pneumonia, ARDS or pulmonary edema is on the differential.
Continue with atovaquone and Azithromycin.
Trend white count, hemoglobin, bilirubin.
Serial (daily) parasite load testing.
Follow LFTs
Trend LDH.
Monitor white count and temperature curve.
Follow creatinine closely.
����������������������������������������������������������
Chief Complaint
-: Other (Babesiosis)
Subjective / Review of Systems
Patient seen and examined. Temperatures down overnight, although patient with increasing shortness of breath and increasing O2 requirements.
Vital Signs / Physical Exam
Vital Signs
Vital Signs
Temp Pulse Resp BP Pulse Ox
99.6 F 121 21 129/86 92
07/21/24 08:31 07/21/24 10:07 07/21/24 08:07 07/21/24 10:07 07/21/24 10:49
Physical Exam
Constitutional: Comfortable, Non-toxic and Obese
Head: Normocephalic
Eyes: Other (Scleral icterus)
Cardiovascular: S1/S2; Negative S3/S4
Pulmonary: Coarse and Other (Mildly labored)
Gastrointestinal: Soft, Non Tender and Non Distended
Extremities: Edema (1+); Negative Cyanosis or Erythema
Neurological: Awake and Alert
Psychological: Calm
Objective Data
Lab Data
Lab Results
07/21/24 03:58
07/21/24 03:58
PT 15.9 Sec (11.4-14.6) H 07/19/24 13:59
INR 1.21 07/19/24 13:59
Estimated Creat Clear 75 ml/min 07/21/24 03:58
Lactic Acid Cancelled 07/19/24 23:25
Total Bilirubin 10.5 mg/dl (0.2-1.3) H 07/21/24 03:58
AST 392 U/L (17-59) H 07/21/24 03:58
ALT 219 U/L (0-50) H 07/21/24 03:58
Alkaline Phosphatase 106 U/L (38-126) 07/21/24 03:58
Most recent labs reviewed.
Micro Results:
07/21/24 03:58 Blood Parasites Smear - Pending
Blood/Venous
07/20/24 13:09 Blood Parasites Smear - Final
Blood/Venous Babesia species
07/19/24 14:58 Blood Culture - Preliminary
Blood/Venous No Growth in 24 hours- Final report to follow
07/19/24 13:58 Blood Culture - Preliminary
Blood/Venous No Growth in 24 hours- Final report to follow
07/19/24 12:47 Urine Culture - Final
Urine NO GROWTH
07/20/24 08:34 C. difficile GDH Antigen & Toxins - Final
Feces/Stool Negative for toxigenic C.difficile
- Final
Negative for Norovirus GI and GII.
07/20/24 08:34 Salmonella/Shigella Culture - Pending
Feces/Stool Campylobacter Culture - Pending
Shiga Toxin Test - Pending
07/19/24 13:59 Blood Parasites Smear - Final
Blood/Venous Babesia species
07/19/24 12:47 Influenza Types A & B (WILFRID) - Final
Nasal Swab Negative for Influenza A & B, NAAT
Negative results must be combined with clinical observations
and patient history.
Nucleic Acid Amplification test (NAAT)performed on the
[employer] platform.
[2024-07-21] MEDS: ZITHROMAX 510 MG IV (13:57)
--- NOTE | 2024-07-21 14:13 | W.PN.HOSP.TC ---
Today's Communication/Plan
-
wean off o2 as possible
continue other care
Assessment / Plan
Assessment / Plan
1. Babesiosis/sepsis-patient diagnosed to have new babesiosis with parasitemia of 9%, patient at increased risk of complication, monitor in IMU. Parasite burden has been low. patient having high-grade fever secondary to active parasitemia, can use
NSAIDs judiciously due to increased bleeding risk. Use cooling blanket as well if needed.
2. Acute transaminitis -denies any nausea or vomiting. Elevated LFTs secondary to babesiosis. CT abdomen pelvis showing hepatomegaly and diffuse hepatic steatosis. 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 Avoid Tylenol as possible. Avoid other
hepatotoxic medication. Crestor has been discontinued. Patient left he has slowly trended down.
3. Acute hypoxic respiratory failure -chest x-ray reviewed and showing further haziness. In light of increasing oxygen requirement concern of possible mild ARDS. Providing IV Lasix 20 mg one-time
4. Thrombocytopenia -patient of low platelet count with associated babesiosis, patient does not have any bleeding diathesis except minimal blood in the phlegm. Patient have elevated LDH due to increased intravascular hemolysis.
5. Sinus tachycardia -secondary to babesiosis, patient can develop new A-fib, continue monitor.
Care plan discussed with ID
Discussed with patient daughter over the phone
Total time spent 56 minutes
Anticipated Discharge: > 48 hours
Subjective/Interval History
-
Date of Service: July 21, 2024
Patient hypoxic today requiring 6 L oxygen and advanced to mid flow
Fever has subsided overnight, continue monitoring
Continues to have some chills
Poor appetite
No significant abdominal pain nausea vomiting
Objective Data
-
Labs:
Laboratory Results
07/21/24
03:58
WBC 11.7 H
Hgb 10.1 L
Hct 28.8 L
Plt Count 80 L D
Sodium 135
Potassium 4.1
Chloride 105
Carbon Dioxide 24
BUN 29 H
Creatinine 1.3
Glucose 117 H
Calcium 7.5 L
Total Bilirubin 10.5 H
AST 392 H
ALT 219 H
Alkaline Phosphatase 106
Vital Signs:
Vital Signs
Temp Pulse Resp BP Pulse Ox
98.1 F 121 21 129/86 92
07/21/24 13:16 07/21/24 10:07 07/21/24 08:07 07/21/24 10:07 07/21/24 10:49
I&O
07/20/24 07/21/24 07/22/24
06:59 06:59 06:59
Intake Total 0 / 0 2089 / 2089 480 / 480
Output Total 700 / 700 530 / 530
Balance 0 / 0 1390 / 1390 -50 / -50
Review of Systems
-
Respiratory: Reports Trouble Breathing
Cardiac: Reports No Symptoms
Abdomen/GI: Reports No Symptoms
Physical Exam
-
General: Morbidly Obese
HEENT: Oxygen (Midflow)
Respiratory: Rhonchi and Accessory Resp Muscle Use
Cardiac: Regular Rhythm, S1/S2 and Tachycardic
GI: Nontender, Normal Bowel Sounds and Distended
Skin: Jaundice and IV Access / Catheter Site
Neuro: Awake, Alert and Oriented
Psych: Calm
[2024-07-21 19:26] LABS: Hepatitis B Core Ab, IgM Negative (Negative)
[2024-07-21 19:38] LABS: Hepatitis B Surface Antibody Negative; Hepatitis C Antibody Negative (Negative)
[2024-07-21] MEDS: NSS (PRESERVATIVE FREE) 0.125 ML IV (19:44)
[2024-07-21] MEDS: ATIVAN 0.25 MG IV (19:44)
[2024-07-21 20:01] LABS: B.E. 0.1 mmol/L; HCO3 23.3 mmol/L (21-28); PCO2 32 mmHg (35-48); PO2 66 mmHg (83-108); pH 7.47 (7.35-7.45)
[2024-07-21 20:03] LABS: O2 Therapy 60 L high flow 100%
[2024-07-21 21:08] LABS: Glucose - Point of Care 141 mg/dl (70-99)
[2024-07-21 22:08] LABS: Hepatitis A IgM Antibody Negative (Negative)
[2024-07-21] MEDS: MELATONIN 5 MG PO (22:21)
[2024-07-21 22:23] LABS: B.E. -0.8 mmol/L; HCO3 23.2 mmol/L (21-28); O2 Saturation % 96.6 % (94-98); PCO2 35 mmHg (35-48); PO2 69 mmHg (83-108); pH 7.43 (7.35-7.45)
[2024-07-21 22:35] LABS: % Basophils 0.2 % (0-2); % Eosinophils 0.2 % (0-6); % Immature Granulocytes 1.5 % (0-0.5); % Lymphocytes 20.4 % (20.5-51.1); % Monocytes 13.6 % (1.7-9.3); % Neutrophils 64.1 % (42.2-75.2); Absolute Immature Granulocytes 0.2 10^3/uL (0-0.05); Absolute Lymphocytes 2.7 10^3/uL (1.2-3.4); Absolute Monocytes 1.8 10^3/uL (0.1-0.6); Absolute Neutrophils 8.4 10^3/uL (1.4-6.5); Hematocrit 27.8 % (39.0-52.0); Hemoglobin 9.8 g/dL (13.0-18.0); Mean Corp Hgb Conc. 35.3 g/dL (33.0-37.0); Mean Corpuscular Hgb 30.7 pg (27.0-31.0); Mean Corpuscular Volume 87.1 fL (80.0-94.0); Mean Platelet Volume 13.4 fL (7.4-10.4); Nucleated Red Blood Cells % 0.3 % (-); Platelet Count 138 10^3/uL (130-400); Red Blood Cell Count 3.19 10^6/uL (4.70-6.10)
[2024-07-21 22:41] LABS: ALT (SGPT) 195 U/L (0-50); AST (SGOT) 349 U/L (17-59); Albumin 2.8 g/dl (3.5-5.0); Alkaline Phosphatase 121 U/L (38-126); Blood Urea Nitrogen 33 mg/dl (9-20); Calcium 7.4 mg/dl (8.4-10.2); Carbon Dioxide 24 mmol/L (22-30); Chloride 103 mmol/L (98-107); Estimated Creatinine Clearance 75 ml/min; Glucose 133 mg/dl (70-99); Magnesium 2.4 mg/dl (1.6-2.3); Potassium 4.1 mmol/L (3.5-5.1); Sodium 132 mmol/L (135-145); Total Bilirubin 10.4 mg/dl (0.2-1.3); Total Protein 6.5 g/dl (6.3-8.2); eGFR > 60.00
[2024-07-21 22:48] LABS: D-Dimer 4.83 ug/mlFEU (0.00-0.50)
[2024-07-21 23:23] LABS: LDH 3160 U/L (120-246)
[2024-07-22] VITALS (35 sets, daily range): BP systolic 77–163; BP diastolic 54–121
--- NOTE | 2024-07-22 00:03 | PTCARENOTE ---
At change of shift patient sitting at the edge of the bed with increasing SOB and WOB. Pt tachypneic and tachycardic HR 127 RR 40 SpO2 86%. Pt boosted to 15L MFNC with minimal improvement. NRB mask place. RT made aware and at the bedside
immediately. [employer]POSITION [employer] Goldstein made aware. Pt transitioned to HFNC 60L 100%. Pt diaphoretic with rigors. Stat CXR ordered and completed. ABG ordered. ADELIA Glodstein bedside to speak with family. Ativan administered for see APR. SpO2 98% on HFNC, pt is
tolerating at this time. Pt WOB slightly improved. Family staying overnight. Call miller within reach.
--- NOTE | 2024-07-22 01:04 | PTCARENOTE ---
RT got a repeat ABG. O2 69 on HFNC. Will repeat ABG in AM. D-dimer elevated, ADELIA Goldstein made aware, possibly LE US. SCDs are on.
[2024-07-22] MEDS: NSS 500 IV (01:57)
--- NOTE | 2024-07-22 05:36 | W.PN.UPDATE ---
Update Note
Progress Note Update
At 1920 07/21/24 Nursing reports he is on the side of the bed having a hard time breathing on 10L MFNC. He was 85%. Increased him to 15L he was 86% so added a NRB mask he is 95%. Added HFNC 60L 100% CXR, ABG ordered. Tachypnea noted and he is
willing to try Ativan. CXR similar to earlier in the day so no worsening. Concern for development of ARDS. Low threshold for intubation. Pulm consult placed and reviewed with Dr. Reich. His parasite load has been decreasing from 9% to 2.7%. PO2
improved to 69 and is compensated with CO2 35 at 2200. Will repeat in am. Reviewed with family at bedside and also ID Dr. Mehta.
[2024-07-22 06:01] LABS: Hemoglobin 9.5 g/dL (13.0-18.0); Mean Corp Hgb Conc. 35.2 g/dL (33.0-37.0); Mean Corpuscular Hgb 30.9 pg (27.0-31.0); Mean Corpuscular Volume 87.9 fL (80.0-94.0); Mean Platelet Volume 12.9 fL (7.4-10.4); Platelet Count 133 10^3/uL (130-400); Red Blood Cell Count 3.07 10^6/uL (4.70-6.10); Red Cell Dist. Width 14.3 % (11.5-14.5); White Blood Cell Count 14.9 10^3/uL (4.8-10.8)
[2024-07-22] MEDS: ROBITUSSIN DM 5 ML PO ×2 (06:12→10:13)
[2024-07-22] MEDS: ATIVAN 0.25 MG IV (06:12)
[2024-07-22 06:17] LABS: ALT (SGPT) 194 U/L (0-50); AST (SGOT) 355 U/L (17-59); Alkaline Phosphatase 116 U/L (38-126); Blood Urea Nitrogen 34 mg/dl (9-20); Calcium 7.5 mg/dl (8.4-10.2); Carbon Dioxide 25 mmol/L (22-30); Chloride 105 mmol/L (98-107); Estimated Creatinine Clearance 75 ml/min; Glucose 119 mg/dl (70-99); Potassium 4.4 mmol/L (3.5-5.1); Sodium 135 mmol/L (135-145); Total Bilirubin 10.5 mg/dl (0.2-1.3); Total Protein 6.9 g/dl (6.3-8.2); eGFR > 60.00
--- NOTE | 2024-07-22 06:43 | PTCARENOTE ---
Patient severely tachypneic and SOB. SpO2 dropped to 86%. Pt requiring NRB to recover. RT bedside to assess patient. Pt anxious, PRN Ativan given. PRN Robitussin given due to persistent dry cough, see MAR.
[2024-07-22 06:55] LABS: B.E. -0.5 mmol/L; HCO3 23.1 mmol/L (21-28); O2 Saturation % 87.4 % (94-98); PCO2 34 mmHg (35-48); pH 7.44 (7.35-7.45)
[2024-07-22 06:59] LABS: PO2 52 mmHg (83-108)
--- NOTE | 2024-07-22 08:18 | CON.INTV ---
Addendum entered and electronically signed by Alden Yusuf MD 07/22/24 17:49:
Addition to physical exam:
(+)jaundice
Original Note:
Consultation
Consultation Request
Date/Time Consultation Requested: 07/21/2024 - 2046
Date/Time Consultation Performed: 07/22/2024 - 806
Requesting Provider: ADELIA Figueroa
Performing Provider: Dr. Yusuf
Reason for Consultation: Hypoxia
Medical History
-
Chief Complaint: Fevers/chills, body aches and dark urine
History of Present Illness:
53-year-old male occasional cigar smoker with a past medical history of hyperlipidemia, GERD and ulcerative colitis who presents for fevers, chills, body aches and dark urine. His fevers have been ongoing for about 2 weeks and he has been having a
fever almost every day up to 102 �F. He went to urgent care 4 days prior to arrival and had blood work there showing low platelets with otherwise unremarkable results, per the patient. He was told he likely has a virus. The patient has been
appearing more yellow skinned over the last 24 hours prior to arrival and his urine appeared darker so he came into the hospital. Patient has not seen any ticks specifically on him but he is in his garden routinely. On admission, he was afebrile
to 99.5 �F, pulse rate 116, respiratory rate 20, BP 133/107 and saturating 97% on room air. Initial labs showed Hb 13.1, WBC 5.8, platelet count 36, 13% bands, INR 1.21, sodium 134, T. bili 8.4, AST 318, ALT 284, and urinalysis was suggestive of
UTI with positive nitrites, +2 leukocyte esterase and many urine bacteria. Acetaminophen level was negative and Lyme serology + hepatitis B and C titers/antibodies were negative. Initial flu swab was positive and blood parasite smear showed
Babesia species. 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 Initial CXR showed concern for left basilar pneumonia.
In the ER he was given a total of 2 L NS 0.9%, Zithromax and Zosyn. He was initially admitted to telemetry for further management with ID consulted. Patient had increasing oxygen requirements with worsening bilateral groundglass opacities on CXR.
Patient was transferred to the IMU on 07/20. Today, patient had worsening oxygen requirements while on high flow nasal cannula at 100% FiO2. Patient transferred to the ICU for further care and orthopaedic general services consulted for additional
management/recommendations.
When I saw the patient, he was on high flow nasal cannula at 100 and FiO2, 55 L/min and saturating 98%. He said that he still cannot breathe. He was able to speak in full sentences. Multiple family members at bedside and all questions were
answered. He appeared diaphoretic, although denied chest pain, GARCIA, nausea or abd pain.
PMHx: Ulcerative colitis, hyperlipidemia, GERD
PSHx: Right knee meniscus surgery
Past Medical History
Past Medical History: Other (Above as per HPI)
Past Surgical History: Other (Above as per HPI)
Social History
Tobacco: Smoker (Occasionally smokes cigars)
Alcohol: Daily (3 at night)
Drug: None
Personal:
Living: With Family
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
Family History
Family History: Reviewed & Not Pertinent
Allergies / Home Medications
Allergies
Allergy/AdvReac Type Severity Reaction Status Date / Time
symbicot Allergy Hives Uncoded 07/19/24 21:23
Home Medications
�Medication �Instructions �Recorded �Confirmed �Last Taken �Type
mesalamine 1.2 gram tablet,delayed 1.2 g PO TID Gastrointestinal Issue 03/19/23 07/19/24 07/19/24 History
release 2.4g
acetaminophen 325 mg tablet 650 mg PO Q4HPRN PRN mild pain 07/19/24 07/19/24 07/18/24 History
(Tylenol)
ibuprofen 200 mg tablet (Advil) 400 mg PO Q6HPRN PRN mild pain 07/19/24 07/19/24 07/18/24 History
metformin 500 mg tablet 500 mg PO DAILY Diabetes 07/19/24 07/19/24 07/18/24 History
rosuvastatin 20 mg tablet (Crestor) 20 mg PO QPM High Cholesterol 07/19/24 07/19/24 07/18/24 History
therapeutic multivitamin 1 tab PO DAILY Supplement 07/19/24 07/19/24 Unknown History
Review of Systems
-
History Source: Patient
All other systems: Negative unless noted
Vitals / Labs / Diagnostic Testing
Vital Signs
Temp Pulse Resp BP Pulse Ox
102.9 F H 123 40 163/87 94
07/22/24 11:00 07/22/24 06:34 07/22/24 06:34 07/22/24 06:34 07/22/24 09:35
Lab Data
07/22/24 05:22
07/22/24 05:22
Laboratory Results
07/21/24 07/21/24 07/22/24
19:44 21:56 05:40
pH 7.47 H 7.43 7.44
pCO2 32 L 35 34 L
pO2 66 L 69 L 52 L*
HCO3 23.3 23.2 23.1
O2 Delivery Level 60 l high flow 100%
07/22/24
11:18
pH 7.44
pCO2 34 L
pO2 70 L
HCO3 23.1
O2 Delivery Level
Microbiology
07/22/24 09:40 Blood/Venous Blood Parasites Smear - Final
Babesia species
07/20/24 08:34 Feces/Stool Salmonella/Shigella Culture - Final
No Salmonella, Shigella, Aeromonas or Plesiomonas species
isolated.
07/20/24 08:34 Feces/Stool Campylobacter Culture - Final
No Campylobacter species isolated.
07/19/24 14:58 Blood/Venous Blood Culture - Preliminary
No Growth in 48 hours- Final report to follow
07/19/24 13:58 Blood/Venous Blood Culture - Preliminary
No Growth in 48 hours- Final report to follow
07/21/24 03:58 Blood/Venous Blood Parasites Smear - Final
Babesia species
07/20/24 13:09 Blood/Venous Blood Parasites Smear - Final
Babesia species
07/19/24 12:47 Urine Urine Culture - Final
NO GROWTH
07/20/24 08:34 Feces/Stool C. difficile GDH Antigen & Toxins - Final
Negative for toxigenic C.difficile
07/20/24 08:34 Feces/Stool - Final
Negative for Norovirus GI and GII.
07/19/24 13:59 Blood/Venous Blood Parasites Smear - Final
Babesia species
07/19/24 12:47 Nasal Swab Influenza Types A & B (WILFRID) - Final
Negative for Influenza A & B, NAAT
Negative results must be combined with clinical observations
and patient history.
Nucleic Acid Amplification test (NAAT)performed on the
[employer] platform.
Diagnostic Testing:
Physical Exam
-
HEENT: Normocephalic and Anicteric
Cardiovascular: S1/S2 and Peripheral Edema (Trace lower extremity edema bilaterally)
Respiratory: Wheeze (negative), Rales (Bilateral), Rhonchi (negative) and Accessory Resp Muscle Use (mild, froy with exertion)
GI: Soft, Distended (Abdominal obesity), Non Tender and Normal Bowel Sounds
Neurology: Awake, Alert, Oriented and Tremors (negative)
Skin: Warm and Dry
General: Respiratory Distress (mild), Chills (negative), Sweats (negative) and Other (Middle-age male, anxious appearing)
Assessment
-
Assessment: 53-year-old male occasional cigar smoker with a past medical history of hyperlipidemia, GERD and ulcerative colitis who presents for fevers, chills, body aches and dark urine. His fevers have been ongoing for about 2 weeks and he has
been having a fever almost every day up to 102 �F. He went to urgent care 4 days prior to arrival and had blood work there showing low platelets with otherwise unremarkable results, per the patient. He was told he likely has a virus. The patient
has been appearing more yellow skinned over the last 24 hours prior to arrival and his urine appeared darker so he came into the hospital. Patient has not seen any ticks specifically on him but he is in his garden routinely. On admission, he was
afebrile to 99.5 �F, pulse rate 116, respiratory rate 20, BP 133/107 and saturating 97% on room air. Initial labs showed Hb 13.1, WBC 5.8, platelet count 36, 13% bands, INR 1.21, sodium 134, T. bili 8.4, AST 318, ALT 284, and urinalysis was
suggestive of UTI with positive nitrites, +2 leukocyte esterase and many urine bacteria. Acetaminophen level was negative and Lyme serology + hepatitis B and C titers/antibodies were negative. Initial flu swab was positive and blood parasite smear
showed Babesia species. 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 Initial CXR showed concern for left basilar
pneumonia. In the ER he was given a total of 2 L NS 0.9%, Zithromax and Zosyn. He was initially admitted to telemetry for further management with ID consulted. Patient had increasing oxygen requirements with worsening bilateral groundglass
opacities on CXR. Patient was transferred to the IMU on 07/20. On 07/22, he had worsening oxygen requirements while on high flow nasal cannula at 100% FiO2. Patient transferred to the ICU for further care and orthopaedic general services consulted for
additional management/recommendations.
Chronic conditions CHEF DE PARTIE: Ulcerative colitis, hyperlipidemia, GERD
Impression:
#Severe babesiosis
#Acute noncardiogenic pulmonary edema due to above
#Acute respiratory failure with hypoxia due to above
#Bpa-axwp-bmwhnmmemyx hemoptysis (blood-tinged phlegm)
#Intravascular hemolysis with acute anemia due to babesiosis
#Thrombocytopenia
#Transaminitis with hyperbilirubinemia (due to intravascular analysis)
#Morbid obesity (BMI: 40)
#Hepatomegaly with diffuse hepatic steatosis
#History of ulcerative colitis on mesalamine
#GERD
Plan:
- Patient found to have anemia with signs of intravascular hemolysis and his Babesia smear showed 9% parasitemia; initial CT A/P showed hepatomegaly with old splenic infarcts and/or hemangiomas
- Patient was being managed in the IMU on high flow nasal cannula at 100 and FiO2 however due to worsening respiratory rate and need for close monitoring with possible intubation, he was transferred to the ICU
- Transition now to noninvasive ventilation, titrating FiO2 to maintain SpO2 >90-94%
- Keep NPO especially while on NIV; if hypoxia worsens then he will need to be intubated
- He is very anxious hence would start Precedex gtt first prior to applying the NIV, and titrate to his level of anxiety
- Continue aspiration precautions keeping HOB >30-45�
- ID consulted, and continue Zithromax, clindamycin + atovaquone
- Monitor for nausea/vomiting and diarrhea
- Patient currently not wheezing hence no role in starting systemic steroids
- prn nebulized bronchodilators - not currently bronchospastic
- Treat fever accordingly with acetaminophen and cooling blankets; can consider Toradol if fever is resistant
- Will check a repeat blood parasite smear tomorrow so that we can assess when his infection has been cleared
- Trend H/H and transfuse if needed to keep Hb>7-8g/dL; keep plt>50k
- Given that his parasitemia is now <10%, no need for RBC exchange transfusion; if his anemia becomes more severe with Hb level <7 g/dL or if he develops hemodynamic compromise due to his anemia then this would reach indication for RBC exchange
transfusion
- Patient does have acute pulmonary edema and this is suspected to be from his babesiosis. Prior echo in August 31 showed preserved biventricular function with LVEF 60%
- Would recheck echo now just to assure that there is no other etiologies for his acute respiratory failure/pulmonary edema
- Monitor I/O
- Continue trending LFTs including LDH and T. bili; will check T. bili although this is expected to be low
- Maintain MAP>65
- Replete electrolytes with K>4, Mg>2
- Maintain euglycemia with goal BG 140-180; check A1C
- DVT ppx: SCDs as he has been having bloody phlegm; once his mild hemoptysis improves/stabilizes then can consider starting chemical prophylaxis at that time
Continue ICU level of care for this critically ill patient.
Critical care statement: A total of 41 minutes of critical care time was provided for this patient today. This includes management of unstable vital signs, evaluation of the patient at bedside, reviewing the patient's pertinent medical records
including radiographs, microbiology, laboratory evaluations, and discussion with primary team, consultants, pharmacy, nutrition, physical therapy, case management, charge nurse, critical care nursing, and respiratory therapy.
Data:
CXR 07/22/2024:
VERY SEVERE BILATERAL AIRSPACE DISEASE most suggestive of VERY SEVERE BILATERAL PNEUMONIA (left greater than right) which has markedly increased since 07/19/2024. Acute respiratory distress syndrome (ARDS) or noncardiogenic pulmonary edema are
alternative diagnostic possibilities.
[2024-07-22] MEDS: NON-FORMULARY ITEM 1.2 GRAMS PO (08:28)
[2024-07-22] MEDS: MEPRON SUSPENSION 750 MG PO ×2 (08:28→21:30)
--- NOTE | 2024-07-22 08:28 | PTCARENOTE ---
Patient received from power and recovery shift engineer. Patient resting comfortably in bed. AAO, VSS and on Highflow N/C. Patient was increased to max highflow 60L @ 100% overnight from 10L Midflow to 15L Midflow to highflow. No complaints of pain at this time. ABG
done in AM, results discussed with hospitalist and sent to pulmonary. Family at bedside. LE Ultrasound and CXR ordered for this AM. Continuing ABX. Call miller in reach.
--- NOTE | 2024-07-22 08:28 | W.PN.HOSP.TC ---
Today's Communication/Plan
-
see note
Assessment / Plan
Assessment / Plan
1. Babesiosis/sepsis-patient diagnosed to have new babesiosis with parasitemia of 9% at admission, Parasite burden has gone down on repeat check. patient having high-grade fever secondary to active parasitemia, can use NSAIDs judiciously due to
increased bleeding risk. Use cooling blanket as well if needed. Currently ID managing rx and on atovaquone/azithromycin
2. ARDS/Acute hypoxic respiratory failure -chest x-ray reviewed and showing further haziness. Pao2 of 52 on Fio2 100%, making him have severe ARDS, currently SPo2 in 94-95%, patient dyspnic and tachypneic. Concern of patient tiring out eventually
will require further support. Patient may require intubation electively but will talk to jacquard loom card changer.
3. Acute transaminitis - Elevated LFTs secondary to babesiosis. CT abdomen pelvis showing hepatomegaly and diffuse hepatic steatosis. 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 Avoid Tylenol as possible. Avoid other hepatotoxic medication.
Crestor has been discontinued. Patient left he has slowly trended down.
4. Thrombocytopenia - Improved -patient of low platelet count with associated babesiosis, patient does not have any bleeding diathesis except minimal blood in the phlegm. Patient have elevated LDH due to increased intravascular hemolysis.
5. Sinus tachycardia -secondary to babesiosis/hypoxic resp failure, patient can develop new A-fib, continue monitor.
Care plan discussed with ID and Lithographic Stripper
Patient have guarded prognosis at this stage as patient will require likely elective intubation with sev ARDS. Discussed prognosis and ventilator managment with patient with family at bedside. Patient and family understands that there is chance
patient may require prolonged intubation.
Total Critical Care Time 45 minutes. I was immediately available to the patient and staff. I personally examined, reviewed labs, diagnostic images/reports, interpretations, treatment plans, discussed patient care with other providers and family
or caregivers (if patient is unable to make decisions), entered orders as appropriate and documented the medical record.
Anticipated Discharge: > 48 hours
Subjective/Interval History
-
Date of Service: July 23, 2023
continues to get further hypoxic overnight and requiring highflow o2 at 60L/m
Temp 102 last evening, relatively become less frequent and severe
no other major reported events
Objective Data
-
Labs:
Laboratory Results
07/21/24 07/21/24 07/22/24
21:55 21:56 05:22
WBC 13.0 H 14.9 H
Hgb 9.8 L 9.5 L
Hct 27.8 L 27.0 L
Plt Count 138 D 133
HCO3 23.2
Sodium 132 L 135
Potassium 4.1 4.4
Chloride 103 105
Carbon Dioxide 24 25
BUN 33 H 34 H
Creatinine 1.3 1.3
Glucose 133 H 119 H
Calcium 7.4 L 7.5 L
Total Bilirubin 10.4 H 10.5 H
AST 349 H 355 H
ALT 195 H 194 H
Alkaline Phosphatase 121 116
07/22/24
05:40
WBC
Hgb
Hct
Plt Count
HCO3 23.1
Sodium
Potassium
Chloride
Carbon Dioxide
BUN
Creatinine
Glucose
Calcium
Total Bilirubin
AST
ALT
Alkaline Phosphatase
Vital Signs:
Vital Signs
Temp Pulse Resp BP Pulse Ox
98.9 F 123 40 163/87 94
07/22/24 04:23 07/22/24 06:34 07/22/24 06:34 07/22/24 06:34 07/22/24 07:49
I&O
07/21/24 07/22/24 07/23/24
06:59 06:59 06:59
Intake Total 0 / 2090 2460 / 2460
Output Total 700 / 700 2505 / 2505
Balance 1390 / 1390 -45 / -45
Review of Systems
-
Respiratory: Reports Cough and Trouble Breathing
Cardiac: Reports No Symptoms
Abdomen/GI: Reports No Symptoms
Physical Exam
-
General: Morbidly Obese
HEENT: Oxygen (Highflow o2 - 60L/m)
Respiratory: Rhonchi
Cardiac: Regular Rhythm, S1/S2 and Tachycardic
GI: Soft and Nontender
Neuro: Awake, Alert and Oriented
Psych: Calm
[2024-07-22 08:31] LABS: Glucose - Point of Care 146 mg/dl (70-99)
--- NOTE | 2024-07-22 08:57 | W.PN.ID1 ---
Date of Service
Date of Service: July 22, 2024
Today's Communication
Continue atovaquone and Azithromycin. Add clindamycin.
Assessment / Plan
Acute babesiosis
Fevers
Anemia
Thrombocytopenia
Elevated bilirubin
Transaminitis
Recommendations:
Initial parasitemia was 9%, but improved to 2.7% and subsequently to 2.4% yesterday. Currently awaiting today's result.
Increasing O2 requirements noted. Doubt pneumonia, but ARDS or pulmonary edema is on the differential.
Hemoglobin overall trending down.
Continue with atovaquone and Azithromycin.
Based upon severity of disease, will add IV clindamycin
Trend white count, hemoglobin, bilirubin.
Serial (daily) parasite load testing.
Follow LFTs
Trend LDH.
Monitor white count and temperature curve.
Follow creatinine closely.
Discussed clinical picture in detail with family at the bedside (, daughter, mother)
Case discussed extensively with Hospitalist
����������������������������������������������������������
Chief Complaint
-: Other (Babesiosis)
Subjective / Review of Systems
Patient seen and examined. Worsening O2 status noted. Temp to 102 degrees yesterday at 11:15, but otherwise afebrile.
Vital Signs / Physical Exam
Vital Signs
Vital Signs
Temp Pulse Resp BP Pulse Ox
98.9 F 123 40 163/87 94
07/22/24 04:23 07/22/24 06:34 07/22/24 06:34 07/22/24 06:34 07/22/24 07:49
Physical Exam
Constitutional: Acutely Ill, Non-toxic and Obese
Cardiovascular: S1/S2; Negative S3/S4
Pulmonary: Other (High flow O2 in place. Mild to moderately labored.)
Gastrointestinal: Soft, Non Distended and Normal Bowel Sounds
Skin: Jaundice
Neurological: Awake and Alert
Psychological: Calm
Objective Data
Lab Data
Lab Results
07/22/24 05:22
07/22/24 05:22
PT 15.9 Sec (11.4-14.6) H 07/19/24 13:59
INR 1.21 07/19/24 13:59
Estimated Creat Clear 75 ml/min 07/22/24 05:22
Lactic Acid Cancelled 07/19/24 23:25
Total Bilirubin 10.5 mg/dl (0.2-1.3) H 07/22/24 05:22
AST 355 U/L (17-59) H 07/22/24 05:22
ALT 194 U/L (0-50) H 07/22/24 05:22
Alkaline Phosphatase 116 U/L (38-126) 07/22/24 05:22
Most recent labs reviewed.
Micro Results:
07/19/24 14:58 Blood Culture - Preliminary
Blood/Venous No Growth in 48 hours- Final report to follow
07/19/24 13:58 Blood Culture - Preliminary
Blood/Venous No Growth in 48 hours- Final report to follow
07/20/24 08:34 Salmonella/Shigella Culture - Preliminary
Feces/Stool Culture in Progress
Campylobacter Culture - Preliminary
Culture in Progress
Shiga Toxin Test - Pending
07/21/24 03:58 Blood Parasites Smear - Final
Blood/Venous Babesia species
07/20/24 13:09 Blood Parasites Smear - Final
Blood/Venous Babesia species
07/19/24 12:47 Urine Culture - Final
Urine NO GROWTH
07/20/24 08:34 C. difficile GDH Antigen & Toxins - Final
Feces/Stool Negative for toxigenic C.difficile
- Final
Negative for Norovirus GI and GII.
07/19/24 13:59 Blood Parasites Smear - Final
Blood/Venous Babesia species
07/19/24 12:47 Influenza Types A & B (WILFRDI) - Final
Nasal Swab Negative for Influenza A & B, NAAT
Negative results must be combined with clinical observations
and patient history.
Nucleic Acid Amplification test (NAAT)performed on the
[employer] platform.
Blood Parasite Smear
07/19/2024
13:59 Babesia Spp.
9%
07/20/2024
13:09 Babesia Spp.
2.7%
07/21/2024
03:58 Babesia Spp.
2.4%
07/22/2024 Pending
Imaging:
07/21/2024 CXR (portable): Comparison to study earlier in the same day there are again seen bilateral areas of parenchymal opacification at least in part could be groundglass with some air bronchograms. No pneumothorax or significant pleural
effusion.
Care Review
.

Total time spent today was 57 minutes, which includes preparation for the visit, including review of pre-visit forms and results, patient interview and examination, reviewing pertinent studies, including laboratory results, microbiology results,
radiology studies, hospital records, specialist consultation, along with patient/caregiver counseling, documentation of clinical information and coordination of care with other healthcare professionals.
[2024-07-22] MEDS: MOTRIN 200 MG PO (10:05)
[2024-07-22] MEDS: CLEOCIN 50 IV ×3 (10:05→22:15)
--- NOTE | 2024-07-22 11:15 | PTCARENOTE ---
Patient transported to ICU on highflow with Respiratory Therapy at bedside. Report given to Preeti GUAJARDO ICU. Family at bedside.
[2024-07-22 11:24] LABS: B.E. -0.7 mmol/L; HCO3 23.1 mmol/L (21-28); O2 Saturation % 96.8 % (94-98); PCO2 34 mmHg (35-48); PO2 70 mmHg (83-108); pH 7.44 (7.35-7.45)
--- NOTE | 2024-07-22 11:58 | PTCARENOTE ---
Received patient from IMU. Patient is AAOx4, denies any numbness/tingling anywhere. He is maxed on high flow, lungs coarse throughout, but is saturating 99%. Patient is sinus tach on monitor, normotensive. He is ordered regular diet but will
hold off until diabetes manager discussion. applied [place] catheter. PAtietn is jaundiced, has large distended belyl
--- NOTE | 2024-07-22 12:02 | PTCARENOTE ---
Received patient from IMU. Patient is AAOx4, denies any numbness/tingling anywhere. He is maxed on high flow, lungs coarse throughout, but is saturating 99%. Patient is sinus tach on monitor, normotensive. He has round obese distended abdomen,
is ordered regular diet, but will hold off until sandblast or shotblast equipment tender discussion. applied condom catheter. Patient is jaundiced, yellow sclera. Intermittently saturated in sweat. full CHG bath completed. Will review orders. call miller within reach,
family present, support provided.
[2024-07-22] MEDS: PRECEDEX 100 IV ×2 (12:23→18:45)
[2024-07-22 12:44] LABS: Haptoglobin <10 mg/dL (30-200)
[2024-07-22 14:14] LABS: LDH 3381 U/L (120-246)
[2024-07-22] MEDS: ZITHROMAX INFUSION 250 IV (14:16)
--- NOTE | 2024-07-22 14:30 | PTCARENOTE ---
Started patient on precedex to tolerate NIV. Patient more somnolent, has woken up a few times to try and rip of the mask. family at bedside. Will give patient a break around 1500, back to high flow. patient is diaphoretic, able to converse,
states he is confused/hallucinating but is able to be oriented to person and place, family around him.
[2024-07-22] MEDS: NON-FORMULARY ITEM PO ×2 (16:22→22:28)
[2024-07-22 16:34] LABS: Glucose - Point of Care 145 mg/dl (70-99)
[2024-07-22] MEDS: CALCIUM GLUCONATE 100 IV (16:42)
--- NOTE | 2024-07-22 17:00 | PTCARENOTE ---
worsening CXR, director business development at bedside., decision to intubate.
[2024-07-22] MEDS: LEVOPHED 250 IV (17:09)
[2024-07-22 17:21] LABS: INR 1.25
--- NOTE | 2024-07-22 17:47 | PTCARENOTE ---
Patient intubated. etomidate and succinylcholine given. 8.0 ETT with AC settings. family updated.
--- NOTE | 2024-07-22 17:49 | W.SUR.POST ---
Surgical Immediate Post Op
Note
Bedside Endotracheal Intubation Procedure
Date of procedure: 07/22/2024
Pre Op Diagnosis: Acute hypoxic respiratory failure
Post Op Diagnosis: Same as above
Procedure Performed: Endotracheal intubation
Primary Proceduralist: Dr. Yusuf
Secondary Surgeons: N/A
Anesthesia/RSI: 30 mg etomidate + 130 mg succinylcholine
Estimated Blood Loss: N/A
Fluids: N/A
Drains/Shunts: N/A
Specimens/Cultures: N/A
Doppler/Duplex/Angio (Y/N): N/A
Complications: No immediate complications
Procedure details: Patient was preoxygenated with BVM at 100% FiO2. RSI given as above and then patient placed into the sniff position, and S4 glidescope inserted into the oropharynx with glottis easily visible. Size 8.0 ETT inserted into glottis
and seen going through cords. Stiffening wire then removed. Satisfactory ETT position was confirmed via color capnometry. ETT was secured with ETT-bunch and tape. CXR and ABG is ordered and pending. There were no immediate complications.
--- NOTE | 2024-07-22 17:49 | W.PN.UPDATE ---
Addendum entered and electronically signed by Sebas Brito MD 07/22/24 18:28:
Discussed with IRAD/Forklift Truck Operator/Yarn Salvager
Once temporary catheter in place and appropriate line position has been confirmed , will need to contact examination scorer hematology Dr Hammer to contact [facility].
Consent obtained from over the phone with guard chief as witness
Original Note:
Update Note
Progress Note Update
Patient follow-up x-ray in the evening showing further worsening of ARDS
Forklift Truck Operator planning for patient to be electively intubated
Discussion with ID regarding potential indication for site of cytapheresis and will need to be planned.
Hematology contacted who is planning to contact blood bank for further availability of PRBC for cytapharesis
If not enough PRBC available to provide cytapheresis treatment and may require transfer to down [facility].
[2024-07-22] MEDS: SUBLIMAZE 50 MCG IV ×2 (17:55→18:28)
--- NOTE | 2024-07-22 18:15 | W.PN.UPDATE ---
Update Note
Progress Note Update
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
Contacted [facility], discussed case.
They recommend:
Blood volume exchange x 1 with 6U.
Give calcium gluconate 2g in NS to prevent reaction.
They require:
- placement of dialysis catheter
- note in chart that dialysis catheter is cleared for use
- consent on chart for blood
- consent on chart for red cell exchange procedure.
We will reassess tomorrow and determine whether repeat procedure is needed.
Full consult to follow 07/23/24.
[2024-07-22 18:47] LABS: B.E. -3.9 mmol/L; HCO3 23.3 mmol/L (21-28); O2 Saturation % 89.5 % (94-98); PCO2 52 mmHg (35-48); PO2 60 mmHg (83-108); pH 7.26 (7.35-7.45)
--- NOTE | 2024-07-22 19:03 | PTCARENOTE ---
IRAD bedside to place HD access.
--- NOTE | 2024-07-22 19:33 | W.PN.IRAD.PR ---
Procedure Note
-
15 cm Trialysis catheter placed via RIJ vein access under US guidance. No immediate complications. Post placement CXR pending.
--- NOTE | 2024-07-22 20:03 | PTCARENOTE ---
Assumed care of pt. approx 1900.
Intubated prior to change of shift per day team.
Sedation with Diprivan/DEX.
IRAD placed right Trial HD access. Confirmed via CXR film.
[facility] notified of HD line placement, awaiting equipment to be dropped off, coordination via blood bank.
Family updated on plan of care.
[2024-07-22] MEDS: DIPRIVAN 100 IV (20:12)
--- NOTE | 2024-07-22 21:50 | PTCARENOTE ---
Arterial access placed. Continuity Editor notified of Sp02 in 86-88 range. Orders for Flolan, RT notified.
[2024-07-22] MEDS: SUBLIMAZE 100 IV (21:51)
[2024-07-22] MEDS: MELATONIN PO (22:13)
[2024-07-22] MEDS: NIMBEX 16 MG IV (22:50)
[2024-07-22] MEDS: VELETRI 50 ML INH (22:52)
[2024-07-22] MEDS: VELETRI 50 MCG INH (22:52)
--- NOTE | 2024-07-22 23:05 | PTCARENOTE ---
Addendum entered by Conner Lee RN 07/22/24 23:12:
Boom Master notified of low urine OP.
Original Note:
Boom Master bedside notified of low sp02.
Flolan started, orders to paralyze patient --> give dose now then Q1 with vent desync.
Per junior underwriter ok if sp02 is 88 or greater, if below 88 for sustained amount of time notify directly for proning orders.
[2024-07-23] MEDS: DIPRIVAN 100 IV ×6 (00:12→21:33)
[2024-07-23] MEDS: REFRESH CELLUVISC GEL 1 DROPS OPHTH ×3 (00:12→21:31)
--- NOTE | 2024-07-23 00:24 | PTCARENOTE ---
[facility] called to inform they will be here within the hour.
REP from [facility] requested provider orders for
-nurse communication order for [facility] specific use of HD line.
-Order for IVP Benadryl 50mg.
-misc supplies at bedside.
House provider notified and orders placed.
Pt. now synching with vent Sp02 in mid s. Flolan running.
[2024-07-23 01:02] LABS: Triglycerides 653 mg/dl (10-149)
[2024-07-23] MEDS: NIMBEX 16 MG IV (01:36)
[2024-07-23] MEDS: CALCIUM GLUCONATE 100 IV (01:39)
[2024-07-23] MEDS: BENADRYL 50 MG IV (01:39)
--- NOTE | 2024-07-23 01:46 | PTCARENOTE ---
Addendum entered by Conner Lee RN 07/23/24 04:11:
Temperature spikes noted prior to starting Exchange transfusion. No transfusion reactions noted.
Addendum entered by Conner Lee RN 07/23/24 02:32:
Esophageal probe placed for cont. Temp monitoring. Temps verified with axillary measurement.
Addendum entered by Conner Lee RN 07/23/24 02:27:
Orders for 1G IV Tylenol + IV Motrin.
Per [facility] RN, any medications given during exchange will be filtered out and need to be redosed. [place] PAPER CONE MAKER notified bedside, ok to hold meds until after Exchange transfusion is completed.
Client Support Associate notified of issues with cooling machine cords. Per Client Support Associate OK to use arctic sun machine to normothermia.
Addendum entered by Conner Lee RN 07/23/24 01:58:
Ice packs applied. RT to turn off vent heater.
Esophageal probe inserted temp. reading 104.4.
House PAPER CONE MAKER bedside.
Cooling blanket placed on patient.
Original Note:
Exchange transfusion Nurse from [facility] BEDSIDE.
Temp spiked from 100.8 2300 to 105.4 VIA core temp, 103.8 axillary.
House provider notified orders for cooling blanket and IV MOTRIN.
Per house provider she will reach out to Client Support Associate.
--- NOTE | 2024-07-23 02:06 | RESPNOTE ---
heater turned off. Notified by RN that the pt has a 105 degree fever. E inline
[2024-07-23 02:09] LABS: HCO3 21.7 mmol/L (21-28); O2 Saturation % 99.5 % (94-98); PCO2 53 mmHg (35-48); PO2 135 mmHg (83-108); pH 7.22 (7.35-7.45)
[2024-07-23] MEDS: CALDOLOR 104 MG IV (03:19)
[2024-07-23] MEDS: OFIRMEV 100 IV (03:20)
[2024-07-23] MEDS: CLEOCIN 50 IV ×4 (03:20→21:31)
--- NOTE | 2024-07-23 04:01 | PTCARENOTE ---
Exchange transfusion completed.
Sp02 99%. Rate adjusted based on Recent ABG. Repeat in AM.
Temp. down to 102.6. Arctic sun on patient.
[2024-07-23 04:38] LABS: Hematocrit 26.7 % (39.0-52.0); Hemoglobin 9.3 g/dL (13.0-18.0); Mean Corp Hgb Conc. 34.8 g/dL (33.0-37.0); Mean Corpuscular Hgb 31.7 pg (27.0-31.0); Mean Corpuscular Volume 91.1 fL (80.0-94.0); Mean Platelet Volume 12.4 fL (7.4-10.4); Platelet Count 141 10^3/uL (130-400); Red Blood Cell Count 2.93 10^6/uL (4.70-6.10); Red Cell Dist. Width 14.6 % (11.5-14.5); White Blood Cell Count 17.4 10^3/uL (4.8-10.8)
[2024-07-23 04:40] LABS: APTT 38.4 Sec (23.4-35.0); INR 1.42; PT 17.6 Sec (11.4-14.6)
--- NOTE | 2024-07-23 04:46 | PTCARENOTE ---
Norepi increased to 14mcg, maps still in 60s, orders for vasopressin.
[2024-07-23] MEDS: VELETRI 50 ML INH ×3 (04:47→22:47)
[2024-07-23] MEDS: VELETRI 50 MCG INH ×3 (04:47→22:47)
[2024-07-23 05:00] LABS: ALT (SGPT) 197 U/L (0-50); AST (SGOT) 475 U/L (17-59); Albumin 2.3 g/dl (3.5-5.0); Alkaline Phosphatase 98 U/L (38-126); Blood Urea Nitrogen 61 mg/dl (9-20); Calcium 7.6 mg/dl (8.4-10.2); Carbon Dioxide 22 mmol/L (22-30); Chloride 105 mmol/L (98-107); Estimated Creatinine Clearance 34 ml/min; Glucose 135 mg/dl (70-99); Magnesium 3.1 mg/dl (1.6-2.3); Phosphorus 9.4 mg/dl (2.5-4.5); Potassium 5.6 mmol/L (3.5-5.1); Sodium 134 mmol/L (135-145); Total Bilirubin 7.7 mg/dl (0.2-1.3); Total Protein 5.7 g/dl (6.3-8.2); eGFR 25.08
[2024-07-23 05:17] LABS: LDH 3382 U/L (120-246)
[2024-07-23] MEDS: LEVOPHED 250 IV ×4 (05:17→21:34)
[2024-07-23] MEDS: PITRESSIN 100 IV ×2 (05:17→13:56)
[2024-07-23 05:25] LABS: B.E. -5.7 mmol/L; HCO3 21.5 mmol/L (21-28); PCO2 49 mmHg (35-48); PO2 178 mmHg (83-108); pH 7.25 (7.35-7.45)
[2024-07-23] MEDS: LOKELMA 10 GRAM PO (05:33)
--- NOTE | 2024-07-23 06:40 | W.PN.UPDATE ---
Update Note
Progress Note Update
Patient febrile to 105 prior to start of RBC exchange Ofirmev/ibuprofen, cooling measures. Nephrology consult added for ARF. Lokelma via dobhoff for K+ 5.6. Vasopressin added for MAP support. Levophed continues.
--- NOTE | 2024-07-23 07:26 | W.PN.ID1 ---
Addendum entered and electronically signed by Lamin Mehta DO 07/23/24 08:34:
Because of declining clinical status, will initiate doxy for potential tickborne coinfection.
Original Note:
Date of Service
Date of Service: July 23, 2024
Today's Communication
Continue antibiotics. Wean pressors as possible.
Assessment / Plan
Acute babesiosis
Clinical sepsis
Fevers
Anemia
Elevated LDH
ANTON
Thrombocytopenia
Elevated bilirubin
Transaminitis
Recommendations:
Initial parasitemia 9%, but improved to 2.7% then 2.4%, then to 1.6% yesterday. LDH remain elevated, raising concern for ongoing hemolysis, and clindamycin added yesterday.
Despite improving parasite load, patient continued to decompensate, requiring increasing O2. Patient eventually intubated.
Given worsening clinical status, patient underwent exchange transfusion early this a.m.
Patient currently remains intubated, on 2 pressors.
Continue with atovaquone, Azithromycin and clindamycin
Trend white count, hemoglobin, bilirubin.
Serial (daily) parasite load testing.
Follow LFTs
Trend LDH.
Monitor white count and temperature curve.
Follow creatinine closely. Patient may require renal replacement therapy.
Discussed clinical picture in detail with family at the bedside (, daughter). All questions answered.
Patient remains critically ill on 2 pressors, vent dependent in ICU
����������������������������������������������������������
Chief Complaint
-: Clinical Sepsis and Other (Babesiosis)
Subjective / Review of Systems
Patient seen and examined. Chart reviewed. Events overnight noted. Last evening, continued pulmonary decompensation and hypotension. Based upon criteria, patient underwent vascular access placement and exchange transfusion. Currently remains
intubated, sedated. Temperature to 105 last evening. Patient currently on 2 pressors.
Vital Signs / Physical Exam
Vital Signs
Vital Signs
Temp Pulse Resp BP Pulse Ox
97.5 F 74 24 91/60 100
07/23/24 07:00 07/23/24 06:00 07/23/24 06:00 07/22/24 21:00 07/23/24 07:23
Physical Exam
Constitutional: Acutely Ill, Toxic and Obese
Head: Normocephalic
Eyes: Pupils Equal, Pupils Round and Other (Scleral icterus)
Cardiovascular: Regular Rate and S1/S2; Negative S3/S4 or Murmur
Pulmonary: Coarse and Other (ET tube in place to vent.)
Gastrointestinal: Soft and Distended
Extremities: Edema; Negative Cyanosis or Erythema
Neurological: Other (Sedated)
Objective Data
Lab Data
Lab Results
07/23/24 04:14
07/23/24 04:14
PT 17.6 Sec (11.4-14.6) H 07/23/24 04:14
INR 1.42 07/23/24 04:14
APTT 38.4 Sec (23.4-35.0) H 07/23/24 04:14
Estimated Creat Clear 34 ml/min 07/23/24 04:14
Lactic Acid Cancelled 07/19/24 23:25
Total Bilirubin 7.7 mg/dl (0.2-1.3) H 07/23/24 04:14
AST 475 U/L (17-59) H 07/23/24 04:14
ALT 197 U/L (0-50) H 07/23/24 04:14
Alkaline Phosphatase 98 U/L (38-126) 07/23/24 04:14
Most recent labs reviewed.
Micro Results:
07/23/24 04:14 Blood Culture - Pending
Blood/Venous
07/23/24 04:14 Blood Culture - Pending
Blood/Venous
07/23/24 04:14 Blood Parasites Smear - Pending
Blood/Venous
07/22/24 18:36 Respiratory Culture - Pending
Endotracheal Gram Stain - Pending
07/19/24 14:58 Blood Culture - Preliminary
Blood/Venous No Growth in 72 hours- Final report to follow
07/19/24 13:58 Blood Culture - Preliminary
Blood/Venous No Growth in 72 hours- Final report to follow
07/22/24 09:40 Blood Parasites Smear - Final
Blood/Venous Babesia species
07/20/24 08:34 Salmonella/Shigella Culture - Final
Feces/Stool No Salmonella, Shigella, Aeromonas or Plesiomonas species
isolated.
Campylobacter Culture - Final
No Campylobacter species isolated.
Shiga Toxin Test - Pending
07/21/24 03:58 Blood Parasites Smear - Final
Blood/Venous Babesia species
07/20/24 13:09 Blood Parasites Smear - Final
Blood/Venous Babesia species
07/19/24 12:47 Urine Culture - Final
Urine NO GROWTH
07/20/24 08:34 C. difficile GDH Antigen & Toxins - Final
Feces/Stool Negative for toxigenic C.difficile
- Final
Negative for Norovirus GI and GII.
07/19/24 13:59 Blood Parasites Smear - Final
Blood/Venous Babesia species
07/19/24 12:47 Influenza Types A & B (WILFRID) - Final
Nasal Swab Negative for Influenza A & B, NAAT
Negative results must be combined with clinical observations
and patient history.
Nucleic Acid Amplification test (NAAT)performed on the
[employer] platform.
Blood Parasite Smear
07/19/2024
13:59 Babesia Spp.
9%
07/20/2024
13:09 Babesia Spp.
2.7%
07/21/2024
03:58 Babesia Spp.
2.4%
07/22/2024
09:40 Babesia Spp.
1.6%
07/23/2024
04:14 Babesia Spp.
-Pending-
Imaging:
07/22/2024 CXR (portable): Right-sided central venous line seen with tip in SVC. NG tube extends into the abdomen with tip outside of image. No pneumothorax. Widespread bilateral parenchymal opacification is again identified.
07/21/2024 CXR (portable): Comparison to study earlier in the same day there are again seen bilateral areas of parenchymal opacification at least in part could be groundglass with some air bronchograms. No pneumothorax or significant pleural
effusion.
[2024-07-23] MEDS: MEPRON SUSPENSION 750 MG TUBE ×2 (07:29→21:31)
[2024-07-23] MEDS: NON-FORMULARY ITEM PO (07:30)
--- NOTE | 2024-07-23 07:59 | W.CON.NEPH ---
Consultation
-
Date/Time Consultation Requested: 07/23/2024 7:30 AM
Date/Time Consultation Performed: 07/23/2024 8:00
Requesting Provider: Dr. Brito
Performing Provider: Dr. Gilmore
Reason for Consultation: Acute kidney injury
Medical History
-
Chief Complaint: ANTON
History of Present Illness:
53-year-old male with history of dyslipidemia on statin therapy. He has a history of diabetes and is maintained on metformin DENIZ on mesalamine, who presented with fevers and malaise. He was eventually diagnosed with babesiosis and initiated on
azithromycin and atovaquone and now clindamycin. His clinical course decompensated and he was intubated last evening and then received red blood cell exchange therapy in the setting of his parasitemia. Patient complications have included
transaminitis and thrombocytopenia and hyperbilirubinemia. He has now developed acute renal failure with his creatinine escalating from 1.3-2.9 with decreased urine output and nephrology was consulted for acute kidney injury in this critically ill
patient.
Past Medical History
Hyperlipidemia
Diabetes
Chronic ulcerative colitis
Social History
Tobacco: Non-Smoker
Alcohol: None
Drug: None
Living: With Family
Family History
no CKD
Allergies / Home Medications
Allergy/AdvReac Type Severity Reaction Status Date / Time
symbicot Allergy Hives Uncoded 07/19/24 21:23
�Medication �Instructions �Recorded �Confirmed �Type
mesalamine 1.2 gram tablet,delayed 1.2 g PO TID Gastrointestinal Issue 03/19/23 07/19/24 History
release
acetaminophen 325 mg tablet 650 mg PO Q4HPRN PRN mild pain 07/19/24 07/19/24 History
(Tylenol)
ibuprofen 200 mg tablet (Advil) 400 mg PO Q6HPRN PRN mild pain 07/19/24 07/19/24 History
metformin 500 mg tablet 500 mg PO DAILY Diabetes 07/19/24 07/19/24 History
rosuvastatin 20 mg tablet (Crestor) 20 mg PO QPM High Cholesterol 07/19/24 07/19/24 History
therapeutic multivitamin 1 tab PO DAILY Supplement 07/19/24 07/19/24 History
Review of Systems
-
Unable to obtain full review of systems at this time due to: Acuity and Patient Intubation
History Source: Patient
All other systems: Negative unless noted
Physical Exam
Vital Signs
Vital Signs
Temp Pulse Resp BP Pulse Ox
97.5 F 74 24 91/60 100
07/23/24 07:00 07/23/24 06:00 07/23/24 06:00 07/22/24 21:00 07/23/24 07:23
Lab Results
07/23/24 04:14
07/23/24 04:14
WBC 17.4 10^3/uL (4.8-10.8) H 07/23/24 04:14
RBC 2.93 10^6/uL (4.70-6.10) L 07/23/24 04:14
Hgb 9.3 g/dL (13.0-18.0) L 07/23/24 04:14
Hct 26.7 % (39.0-52.0) L 07/23/24 04:14
Plt Count 141 10^3/uL (130-400) 07/23/24 04:14
Sodium 134 mmol/L (135-145) L 07/23/24 04:14
Potassium 5.6 mmol/L (3.5-5.1) H D 07/23/24 04:14
Chloride 105 mmol/L (98-107) 07/23/24 04:14
Carbon Dioxide 22 mmol/L (22-30) 07/23/24 04:14
BUN 61 mg/dl (9-20) H 07/23/24 04:14
Creatinine 2.9 mg/dL (0.7-1.3) H 07/23/24 04:14
eGFR 25.08 07/23/24 04:14
Glucose 135 mg/dl (70-99) H 07/23/24 04:14
Calcium 7.6 mg/dl (8.4-10.2) L 07/23/24 04:14
Phosphorus 9.4 mg/dl (2.5-4.5) H 07/23/24 04:14
Albumin 2.3 g/dl (3.5-5.0) L 07/23/24 04:14
Physical Exam
General: intubated and sedated, obese
HEENT: ETT tube downOropharynx , Dentition Intact, Facial Symmetry, Neck Supple, Neck: Trachea Midline, No JVD and No Thyromegaly, no Bruits
Respiratory: coarse to auscultation bilaterally with normal lung exersion
Cardiac: S1/S2 and Regular Rate/Rhythm
Breast: Deferred by me
Abdomen: Soft, Nontender, Nondistended, decreased Bowel Sounds and No Hepatosplenomegaly
Rectal: Deferred by Provider
Genito-urinary: No Costovertebral Tenderness, page
Extremities: No Clubbing, No Cyanosis and trace pitting Edema, dusky toes
Skin: No Rash or open lesions
Neuro: Nonfocal/Grossly Intact, CN II-XII (Intact) and Strength (Musculoskeletal exam 5 out of 5 both upper and lower extremities)
Hematologic/Lymphatic: No Cervical Lymphadenopathy, No Submandibular Lymphadenopathy and No Supraclavicular Lymphadenopathy
Vascular: plus 1 pedal and radial pulses
Data Reviewed
-
Radiology: Image Personally Visualized and interpreted (Bilateral white out/ opacification of lung keen)
Labs: Labs Reviewed by me (bmp/CBC/UA)
Old Records: Reviewed (Reviewed old creatinine level from 0.8 from 05/17/23 in electronic medical record)
Assessment/Plan
-
Impression:
ANTON
Hyperkalemia
Babesiosis/Sepsis
Anemia
Thrombocytopenia
Vent dependent respiratory failure
Dyslipidemia
Chronic ulcerative colitis
Diabetes
Transaminitis with hyperbilirubinemia
Acidemia with both respiratory and metabolic
Plan:
ANTON:
- Likely related to microangiopathic hemolytic process with subsequent acute tubular injury
- Patient has also had episodes of hemodynamic instability over past 12-hours
- Red blood cell exchange therapy was provided last evening
- add Page with accurate I's and
- Maintain MAP at 65 or greater with dual pressors (vasopressin and levophed)
- check weights daily
- Pulmonary will likely increase vent rate for hypercapnia
- Will provide 80 mg of IV Lasix to assess response
- If dialysis modality to be initiated will likely be CRRT given hemodynamic instability
- Patient critically ill on pressor support with vent dependent respiratory failure and evolving renal failure
- 45 minutes critical care time spent with patient
Total Time Spent with Patient (in minutes): 45
--- NOTE | 2024-07-23 08:23 | W.PN.HOSP.TC ---
Addendum entered and electronically signed by Sebas Brito MD 07/23/24 08:47:
Ordering RUQ abd US to check for any structural liver/gb issue to explain direct dominant hyperbillirubinemia,
Original Note:
Today's Communication/Plan
-
see note
Assessment / Plan
Assessment / Plan
1. Babesiosis/severe sepsis
Acute thrombocytopenia
Acute hemolytic anemia
-patient diagnosed to have new babesiosis with parasitemia of 9% at admission
-Parasite burden has gone down on repeat check, despite improvement in parasitemia patient continued to have worsening organ failure. Patient ended up getting RBC exchange on 07/22 evening
-Currently on regimen of atovaquone/azithromycin/clindamycin
-LDH remains elevated 3.3k, D-dimer 4.8 , Hbg low at 9.5, Plt improved to 140k
-Parasite count has came down to 1.6% on last check
-ID following and help appreciated, ID considering to initiate doxycycline to cover other tickborne illnesses (ehrlichiosis
2. Severe ARDS/Acute hypoxic respiratory failure
Septic shock
-chest x-ray reviewed and showing further haziness.
-Pao2 of 52 on Fio2 100%, making him have severe ARDS -patient was given trial of high flow/NIV
-ABG in the morning showing pH of 7.25/PO2 of 178/PCO2 of 49
-Patient required elective intubation on 07/22 evening for worsening chest x-ray showing progressing ARDS
-Currently patient on maximal vent support for oxygenation with FiO2 100% and PEEP of 14
-Patient also started on epoprostenol infusion to help with ARDS
-Patient requiring vasopressor support of Levophed/vasopressin, wean off as possible
3. Acute renal failure
- Patient developing worsening renal failure, creatinine has jumped from 1.3 to 2.9
- have indwelling page catheter
- Possibly from micro angiopathic hemolysis and shock related. Avoid nephrotoxic medication
- Nephrology following as well.
4. Acute transaminitis
Hyperbilirubinemia - Direct dominant
- Total bilirubin max of 10.5 ,trending down 7.7
- Direct bilirubin of 7, ? unable to explain
- Avoid nephrotoxic medication
- ALT has improved, AST has increased significantly to 475 today
5. Hyperkalemia
-likely from transfused RBC lysing down and renal failure related
-got dose of lokelma
6. Hyponatremia
- mild. monitor.
Care plan discussed with ID/Mechanics Handyman
Patient have guarded prognosis at this point. Patient going through severe ARDS/renal failure as part of babesiosis. Currently on maximal therapy possible and may require ECMO initiation if ARDS not improved.
Total Critical Care Time 43 minutes. I was immediately available to the patient and staff. I personally examined, reviewed labs, diagnostic images/reports, interpretations, treatment plans, discussed patient care with other providers and family
or caregivers (if patient is unable to make decisions), entered orders as appropriate and documented the medical record.
Anticipated Discharge: > 48 hours
Subjective/Interval History
-
Date of Service: July 23, 2024
Patient remains critically ill
Intubated on maximal vent support of 100% FiO2 and 14 of PEEP, saturating 90 to 95%
High-grade fever overnight post RBC exchange
Was sedated with propofol/fentanyl
Requiring vasopressor levophed/vasopressors
Objective Data
-
Labs:
Laboratory Results
07/23/24 07/23/24 07/23/24
02:02 04:14 05:19
WBC 17.4 H
Hgb 9.3 L
Hct 26.7 L
Plt Count 141
PT 17.6 H
INR 1.42
APTT 38.4 H
HCO3 21.7 21.5
Sodium 134 L
Potassium 5.6 H D
Chloride 105
Carbon Dioxide 22
BUN 61 H
Creatinine 2.9 H
Glucose 135 H
Calcium 7.6 L
Total Bilirubin 7.7 H
AST 475 H
ALT 197 H
Alkaline Phosphatase 98
Vital Signs:
Vital Signs
Temp Pulse Resp BP Pulse Ox
97.5 F 74 24 91/60 100
07/23/24 07:00 07/23/24 06:00 07/23/24 06:00 07/22/24 21:00 07/23/24 07:23
I&O
07/22/24 07/23/24 07/24/24
06:59 06:59 06:59
Intake Total 2460 / 2460 2582.9 / 2582.9
Output Total 2505 / 2505 490 / 490
Balance -45 / -45 2091.9 / 2091.9
Review of Systems
-
Unable to obtain full review of systems at this time due to: Acuity
Physical Exam
-
HEENT: Other (Intubated)
Respiratory: Rhonchi
Cardiac: Regular Rhythm, S1/S2 and Tachycardic
GI: Soft and Distended
Neuro: Sedated
Psych: Calm
--- NOTE | 2024-07-23 08:27 | W.PN.INTV ---
Today's Communication / Plan
Recommendations
Mechanical ventilation, treating as ARDS
Optimize ventilator to maintain driving pressure 15�20
Continue Flolan
May need CRRT; continue trending UOP and serial labs to monitor [K], serum HCO3 and sCr
Continue vasopressors; if requirements continue to increase then start stress dose steroids
DuoNebs
Antibiotics + antiprotozoans per ID
prn Nimbex for ventilator asynchrony
PPI for stress ulcer prophylaxis
HSQ for DVT ppx - trend H&H + platelet count and monitor for recurrence of hemoptysis
Continue ICU level of care for this critically ill patient
Assessment
-
Assessment: 53-year-old male occasional cigar smoker with a past medical history of hyperlipidemia, GERD and ulcerative colitis who presents for fevers, chills, body aches and dark urine. His fevers have been ongoing for about 2 weeks and he has
been having a fever almost every day up to 102 �F. He went to urgent care 4 days prior to arrival and had blood work there showing low platelets with otherwise unremarkable results, per the patient. He was told he likely has a virus. The patient
has been appearing more yellow skinned over the last 24 hours prior to arrival and his urine appeared darker so he came into the hospital. Patient has not seen any ticks specifically on him but he is in his garden routinely. On admission, he was
afebrile to 99.5 �F, pulse rate 116, respiratory rate 20, BP 133/107 and saturating 97% on room air. Initial labs showed Hb 13.1, WBC 5.8, platelet count 36, 13% bands, INR 1.21, sodium 134, T. bili 8.4, AST 318, ALT 284, and urinalysis was
suggestive of UTI with positive nitrites, +2 leukocyte esterase and many urine bacteria. Acetaminophen level was negative and Lyme serology + hepatitis B and C titers/antibodies were negative. Initial flu swab was positive and blood parasite smear
showed Babesia species. 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 Initial CXR showed concern for left basilar
pneumonia. In the ER he was given a total of 2 L NS 0.9%, Zithromax and Zosyn. He was initially admitted to telemetry for further management with ID consulted. Patient had increasing oxygen requirements with worsening bilateral groundglass
opacities on CXR. Patient was transferred to the IMU on 07/20. On 07/22, he had worsening oxygen requirements while on high flow nasal cannula at 100% FiO2. Patient transferred to the ICU for further care and metal [employer] services consulted for
additional management/recommendations.
Chronic conditions DECAL APPLIER: Ulcerative colitis, hyperlipidemia, GERD
Impression:
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
#Acute noncardiogenic pulmonary edema due to above with developing ARDS
#Acute respiratory failure with hypoxia and hypercapnia due to above requiring mechanical ventilation (intubated 07/22/2024 by Generator Assembler)
#Circulatory shock due to distributive shock from sedation as well as sepsis
#Dbz-[id number]-mtuftwikbhr hemoptysis (blood-tinged phlegm)
#Intravascular hemolysis with acute anemia due to babesiosis
#Thrombocytopenia
#Transaminitis with hyperbilirubinemia (due to intravascular analysis)
#Morbid obesity (BMI: 40)
#Hepatomegaly with diffuse hepatic steatosis
#History of ulcerative colitis on mesalamine
#GERD
Plan:
- Patient found to have anemia with signs of intravascular hemolysis and his Babesia smear showed 9% parasitemia; initial CT A/P showed hepatomegaly with old splenic infarcts and/or hemangiomas
- Patient was being managed in the IMU on high flow nasal cannula at 100% FiO2 however due to worsening respiratory rate and need for close monitoring with possible intubation, he was transferred to the ICU
- Transitioned to noninvasive ventilation on 07/22 however due to worsening bilateral pulmonary opacities seen on CXR with suspected developing ARDS, he was electively intubated on 07/22, started on Flolan and vent was adjusted to optimizer driving
pressure
- Continue with mechanical ventilation with daily SAT/SBT if clinically appropriate
- Goal driving pressure 15�20
- Maintain plateau pressure <30 and titrate FiO2 + PEEP to keep SpO2 >88-90%
- prn paralytics with Nimbex if needed for ventilator asynchrony
- If hypoxia persists despite optimizing PEEP, using paralytics and maximizing Flolan, then it is time to prone
- If unable to prone or if hypoxia persists despite proning, then would need to reach out to CT surgery to initiate VV ECMO
- Continue aspiration precautions; keep HOB >30-45�
- Continue DuoNebs TID and continue prn nebulized bronchodilators - not currently bronchospastic
- Oropharyngeal + deep ETT suctioning with subglottic as needed
- Daily CXR + blood gas
- Daily vent adjustments as needed based on blood gas and SaO2
- If possible, use low level of sedation with goal RASS as 0 to -2; can switch to deep sedation if needed based on level of ventilator synchrony or if decision made to prior
- ID consulted, and continue Zithromax, clindamycin, atovaquone and now doxy
- Monitor for nausea/vomiting and diarrhea
- Patient currently not wheezing, and P/F ratio this AM was >150, hence will hold off on systemic steroids and re-evaluate daily
- Treat fever accordingly with acetaminophen and cooling blankets; can consider Toradol if fever is resistant
- Blood parasite smear checked today showing 0.9% parasitemia; continue trending parasite load as per ID
- Although he has <10% parasitemia, we still made the decision to perform RBC exchange transfusion which he received on 07/22 due to his severe respiratory failure, and this significantly has improved his oxygen saturations in conjunction with the
ventilator and flolan
- Trend H/H and transfuse if needed to keep Hb>7-8g/dL; keep plt>50k
- Patient does have acute pulmonary edema and this is suspected to be from his babesiosis. Prior echo in August 31 showed preserved biventricular function with LVEF 60%
- Would recheck echo now just to assure that there is no other etiologies for his acute respiratory failure/pulmonary edema
- Monitor I/O
- Patient is now developing severe ANTON
- Nephrology consulted
- May need CRRT; continue trending UOP with strict I/O
- Renally adjust all medications/antibiotics
- Maintain MAP >65-70 to help perfuse kidneys
- Trend serum bicarbonate level and if continues to decline then would start bicarb drip
- Continue monitoring potassium levels and CXR as if he becomes more significantly hyperkalemic or if pulmonary edema worsens then would favor CRRT starting to help optimize volume status/electrolyte
- Continue trending LFTs including LDH and T. bili; will check T. bili although this is expected to be low
- Maintain MAP>65
- Continue vasopressors titrating to MAP above
- If vasopressor requirements continue to increase then would start hydrocortisone
- Replete electrolytes with K>4, Mg>2
- Maintain euglycemia with goal BG 140-180; check A1C
- Start stress ulcer ppx
- DVT ppx: Start HSQ as his H/H is stable today and platelet count has been improved and currently not having bloody ETT secretions
Code status: Full code
Continue ICU level of care for this critically ill patient.
Critical care statement: A total of 38 minutes of critical care time was provided for this patient today. This includes management of unstable vital signs, evaluation of the patient at bedside, reviewing the patient's pertinent medical records
including radiographs, microbiology, laboratory evaluations, and discussion with primary team, consultants, pharmacy, nutrition, physical therapy, case management, charge nurse, critical care nursing, and respiratory therapy.
Data:
CXR 07/22/2024:
VERY SEVERE BILATERAL AIRSPACE DISEASE most suggestive of VERY SEVERE BILATERAL PNEUMONIA (left greater than right) which has markedly increased since 07/19/2024. Acute respiratory distress syndrome (ARDS) or noncardiogenic pulmonary edema are
alternative diagnostic possibilities.
CXR 07/23/2024:
1. SEVERE BILATERAL AIRSPACE CONSOLIDATION which appears unchanged and is likely secondary to SEVERE BILATERAL PNEUMONIA. Severe noncardiogenic pulmonary edema or acute respiratory distress syndrome (ARDS) are alternative diagnostic possibilities.
2. Mild elevation of the right hemidiaphragm.
3. Endotracheal tube, right IJ hemodialysis catheter, and nasogastric feeding tube remaining in place.
Subjective Dataa
Subjective Data
Date of Service:
Date of Service: July 23, 2024
Chief Complaint: Generator Assembler Follow Up
Subjective:
Pt seen and evaluated this AM. Obtained RBC exchange transfusion yesterday. HR 84, BP 113/60, saturating 100% on AC/CMV 26/450/10/100% with PIP 30 cmH2O, VTe 435 cc and breathing at 26 breaths/min. Started on Flolan yesterday and he is currently
at 0.04 mcg/kg/min. Levophed at 10 mcg/min and vasopressin at 0.03 units/min. Sedated on propofol at 40 mcg/kg/min and fentanyl at 50 mcg/hr. Had to get 2 doses of Nimbex as well last night due to high peak pressures of 35�36 cmH2O with hypoxia
down to 84%.
Review of Systems
General: Unobtainable - Sedation
Objective Data
Data Reviewed
Vital Signs / I&O / Oxygen:
Vital Signs
Temp Pulse Resp BP Pulse Ox
97.5 F 73 26 91/60 100
07/23/24 07:00 07/23/24 09:30 07/23/24 09:30 07/22/24 21:00 07/23/24 09:34
Intake and Output
07/22/24 07/23/24 07/24/24
06:59 06:59 06:59
Intake Total 2460 / 2460 2582.9 / 2668.0 450.4 / 450.4
Output Total 2505 / 2505 490 / 495 /
Balance -45 / -45 2092.9 / 2173.0 422.4 / 422.4
SaO2 [A/C] 100
SaO2 100
Nasal Cannula flow liters per 55
minute
Physical Exam
General: Respiratory Distress (negative), Comfortable, Chills (negative) and Sweats (negative)
HEENT: Normocephalic and Anicteric
Cardiovascular: S1-S2 and Peripheral Edema (+1 bilateral lower extremity edema)
Respiratory: Wheeze (negative), Crackles (Bilateral), Rhonchi (negative), Non-Labored Respirations and ET Tube (Mechanical breath sounds heard bilaterally)
GI: Soft, Distended (Abdominal obesity), Non Tender and Normal Bowel Sounds
Neurology: Tremors (negative) and Other (Sedated; pupils 2 mm bilaterally and sluggish)
Skin: Warm, Dry, Cyanosis (negative) and Jaundice (negative)
Labs/Micro/Reports
Lab Data
07/23/24 04:14
Laboratory Results
07/22/24 07/22/24 07/22/24
11:18 17:06 18:39
PT 16.0 H
INR 1.25
APTT 39.0 H
pH 7.44 7.26 L
pCO2 34 L 52 H
pO2 70 L 60 L
HCO3 23.1 23.3
O2 Delivery Level
07/23/24 07/23/24 07/23/24
02:02 04:14 05:19
PT 17.6 H
INR 1.42
APTT 38.4 H
pH 7.22 L 7.25 L
pCO2 53 H 49 H
pO2 135 H 178 H
HCO3 21.7 21.5
O2 Delivery Level
Microbiology
07/19/24 14:58 Blood/Venous Blood Culture - Preliminary
No Growth in 72 hours- Final report to follow
07/19/24 13:58 Blood/Venous Blood Culture - Preliminary
No Growth in 72 hours- Final report to follow
07/22/24 09:40 Blood/Venous Blood Parasites Smear - Final
Babesia species
07/20/24 08:34 Feces/Stool Salmonella/Shigella Culture - Final
No Salmonella, Shigella, Aeromonas or Plesiomonas species
isolated.
07/20/24 08:34 Feces/Stool Campylobacter Culture - Final
No Campylobacter species isolated.
07/21/24 03:58 Blood/Venous Blood Parasites Smear - Final
Babesia species
07/20/24 13:09 Blood/Venous Blood Parasites Smear - Final
Babesia species
07/19/24 12:47 Urine Urine Culture - Final
NO GROWTH
07/20/24 08:34 Feces/Stool C. difficile GDH Antigen & Toxins - Final
Negative for toxigenic C.difficile
07/20/24 08:34 Feces/Stool - Final
Negative for Norovirus GI and GII.
[2024-07-23] MEDS: LASIX 80 MG IV (08:48)
--- NOTE | 2024-07-23 09:53 | PTCARENOTE ---
Rec'd pt at 0700. Pt sedate on Prop/Fent gtts on vent. Pt diaphoretic, dressings changed/resecured to IV sites. Monitor SR. SBP 110's via right radial a-line. Levo/Vaso gtts to maintain MAP >65. Lungs coarse throughout, pox 100% on 100% fio2. PEEP
decreased by resp therapist, currently down to 10. Abd large/round. DHT in place, clamped. Agustin draining small amt kristin/brown urine. 80mg IV Lasix given per nephrology. Family at bedside, updated.
[2024-07-23] MEDS: VIBRAMYCIN 260 MG IV ×2 (10:01→21:32)
[2024-07-23 10:17] LABS: B.E. -7.6 mmol/L; HCO3 19.7 mmol/L (21-28); O2 Saturation % 99.9 % (94-98); PCO2 47 mmHg (35-48); PO2 140 mmHg (83-108); pH 7.23 (7.35-7.45)
[2024-07-23] MEDS: DUONEB 3 ML INH ×2 (11:09→19:49)
--- NOTE | 2024-07-23 11:20 | PTCARENOTE ---
Pt transferred to sport bed, CHG bath done and linens changed. Pt remains diaphoretic. Family at bedside, updated by .
--- NOTE | 2024-07-23 13:22 | PTCARENOTE ---
Abdominal US completed at bedside.
[2024-07-23] MEDS: ZITHROMAX INFUSION 250 IV (13:50)
[2024-07-23 14:31] LABS: Blood Urea Nitrogen 71 mg/dl (9-20); Calcium 7.1 mg/dl (8.4-10.2); Carbon Dioxide 18 mmol/L (22-30); Chloride 105 mmol/L (98-107); Estimated Creatinine Clearance 24 ml/min; Glucose 148 mg/dl (70-99); Potassium 5.1 mmol/L (3.5-5.1); Sodium 134 mmol/L (135-145); eGFR 17.05
--- NOTE | 2024-07-23 14:49 | PTCARENOTE ---
Dr. Gilmore notified of 1400 lab results, no new orders.
[2024-07-23] MEDS: PROTONIX IV 40 MG IV (16:00)
[2024-07-23] MEDS: HEPARIN 5000 UNITS SC (16:00)
[2024-07-23] MEDS: NSS (PRESERVATIVE FREE) 10 ML IV (16:00)
[2024-07-23] MEDS: SUBLIMAZE 100 IV (16:11)
[2024-07-23] MEDS: SUBLIMAZE 50 MCG IV (21:32)
--- NOTE | 2024-07-23 21:39 | PTCARENOTE ---
Assumed care of pt. approx 190.
Remains intubated/Sedated.
PEEP decreased to 10/ FI02 decreased to 80%. Sp02 92-99 percent good pleth, tolerating settings.
NSR w.o ectopy, Norepi titrated down remains on vasopressin --> see flowsheets.
Slightly febrile 100.8, ice packs applied.
Remains Oliguric, brown urine.
--- NOTE | 2024-07-23 22:06 | CON.ONC ---
Consultation
-
Date Consultation Requested: 07/22/24
Date Consultation Performed: 07/23/24
Requesting Provider: Sebas Brito
Performing Provider: Vanessa Barnard
Reason for Consultation: Babesiosis, eval for red cell exchange
Impression
Impression
Severe babesiosis
Hemolytic anemia, stable
Hepatic failure as evidenced by elevated direct bilirubin and transaminases
Progressive renal insufficiency
Severe bilateral pneumonia
Hypoxic respiratory failure status post intubation
Mild hepatosplenomegaly
Plan
Plan
Patient is status post Red cell exchange x 1.
Time spent arranging Red cell exchange was 1 hour.
Viral load had decreased to 1.9% yesterday even prior to Red cell exchange.
Patient with ARDS complicated by multiorgan failure.
Continue supportive care.
Thank you for consultation, we will follow along with you
Patient History
History of Present Illness
53-year-old man with medical history limited to hyperlipidemia and ulcerative colitis on mesalamine. Patient was well until about 2 weeks ago when he noted onset of daily fever to 102, body aches, chills, and malaise. He was told he likely had a
virus. However, on day prior to admission his started to notice jaundice and his urine turned to dark brown. He had recently been in the [facility]. He came to the emergency room where imaging was consistent with bibasilar pneumonia. Babesiosis
testing subsequently returned positive with 9% parasitemia. He was started on IV atovaquone and azithromycin. Since starting these therapies, his viral load has decreased but he has become progressively more ill. I was called yesterday at around
6 PM because patient had developed ARDS representing an indication for Red cell exchange. He underwent Red cell exchange for 1 blood volume early this morning. Lab work is significant for elevated bilirubin which is almost all direct. LDH is
elevated. Progressive renal insufficiency is noted. Patient further decompensated prior to the Red cell exchange and had to be intubated.
Past-Medical/Surgical History
Past Medical History
Past Medical History: Reports GERD and Hypercholesterolemia
Past Surgical History: Reports None
Social History
Tobacco: Non-smoker
Alcohol: Occasional
Drug: None
Personal:
Family History
Family History: Not pertinent
Patient Medication
�Medication �Instructions �Recorded �Confirmed �Last Taken �Type
mesalamine 1.2 gram tablet,delayed 1.2 g PO TID Gastrointestinal Issue 03/19/23 07/19/24 07/19/24 History
release 2.4g
acetaminophen 325 mg tablet 650 mg PO Q4HPRN PRN mild pain 07/19/24 07/19/24 07/18/24 History
(Tylenol)
ibuprofen 200 mg tablet (Advil) 400 mg PO Q6HPRN PRN mild pain 07/19/24 07/19/24 07/18/24 History
metformin 500 mg tablet 500 mg PO DAILY Diabetes 07/19/24 07/19/24 07/18/24 History
rosuvastatin 20 mg tablet (Crestor) 20 mg PO QPM High Cholesterol 07/19/24 07/19/24 07/18/24 History
therapeutic multivitamin 1 tab PO DAILY Supplement 07/19/24 07/19/24 Unknown History
Active Medications
Generic Name Dose Route Start Last Admin
Trade Name Freq PRN Reason Stop Dose Admin
Albuterol/Ipratropium 3 ml 07/20/24 11:03 07/20/24 11:33
Ipratropium 0.5/Albuterol 3 Mg (3 Ml Ampul) INH 3 ml
R Q4HPRN PRN Administration
shortness of breath
Protocol
Albuterol/Ipratropium 3 ml 07/23/24 14:00 07/23/24 19:49
Ipratropium 0.5/Albuterol 3 Mg (3 Ml Ampul) INH 3 ml
R TID DANIEL Administration
Protocol
Atovaquone 750 mg 07/22/24 22:40 07/23/24 21:31
Atovaquone 750 Mg/5 Ml Oral Suspension Cup TUBE 07/29/24 19:59 750 mg
Q12 DANIEL Administration
Carboxymethylcellulose Sodium 1 drops 07/22/24 22:45 07/23/24 21:31
Carboxymethylcellulose Ophth Gel (Celluvisc) Droperette OPHTH 08/19/24 22:44 1 drops
Q12 DANIEL Administration
Cisatracurium Besylate 16 mg 07/22/24 22:40 07/23/24 01:36
Cisatracurium (2 Mg/Ml) 20 Mg/10 Ml Vial 0.15 mg/kg (16 mg) 16 mg
IV Administration
Q1HPRN PRN
ventilator dyssynchrony
Fentanyl Citrate 50 mcg 07/22/24 17:20 07/23/24 21:32
Fentanyl (50 Mcg/Ml) 100 Mcg/2 Ml Ampul IV 08/05/24 17:19 50 mcg
Q04UGHT PRN Administration
see protocol
Protocol
Guaifenesin/Dextromethorphan 5 ml 07/22/24 22:41
Guaifenesin/Dextromethorphan 200 Mg/10 Ml Cup TUBE 08/19/24 05:34
Q4HPRN PRN
cough
Heparin Sodium 5,000 units 07/23/24 16:00 07/23/24 16:00
Heparin 5,000 Units/Ml 1 Ml Vial SC 08/20/24 15:59 5,000 units
Q8 DANIEL Administration
Azithromycin 500 mg in 250 mls @ 250 mls/hr 07/22/24 14:00 07/23/24 13:50
Zithromax Infusion IV 250 mls
Q24H DANIEL Administration
Clindamycin HCl/Dextrose 600 mg in 50 mls @ 100 mls/hr 07/22/24 10:00 07/23/24 21:31
Cleocin IV 50 mls
Q6H DANIEL Administration
Dexmedetomidine HCl 400 mcg in 100 mls @ 0 mls/hr 07/22/24 12:15 07/22/24 18:45
Precedex IV 100 mls
PER PROTOCOL DANIEL Administration
Protocol
Per Protocol
Norepinephrine Bitartrate 4 mg in 250 mls @ 0 mls/hr 07/22/24 17:00 07/23/24 21:34
Levophed IV 250 mls
PER PROTOCOL DANIEL Administration
Protocol
Per Protocol
Fentanyl Citrate 1,000 mcg in 100 mls @ 0 mls/hr 07/22/24 17:30 07/23/24 16:11
Sublimaze IV 100 mls
PER PROTOCOL DANIEL Administration
Protocol
Per Protocol
Propofol 1,000,000 mcg in 100 mls @ 0 mls/hr 07/22/24 19:30 07/23/24 21:33
Diprivan IV 100 mls
PER PROTOCOL DANIEL Administration
Protocol
Per Protocol
Epoprostenol Sodium 1,500 mcg/ 50 mls @ 0 mls/hr 07/22/24 22:00 07/23/24 12:42
Sterile Water 45 ml/ Device INH 50 mls
PER PROTOCOL DANIEL Administration
Protocol
Per Protocol
Vasopressin 20 units in 100 mls @ 0 mls/hr 07/23/24 04:45 07/23/24 13:56
Pitressin IV 100 mls
PER PROTOCOL DANIEL Administration
Protocol
Per Protocol
Doxycycline Hyclate 100 mg/ 260 mls @ 260 mls/hr 07/23/24 10:00 07/23/24 21:32
Sodium Chloride IV 260 mls
Q12H DANIEL Administration
Ibuprofen 200 mg 07/23/24 21:56
Ibuprofen Suspension (200 Mg/10 Ml) Cup PO 08/20/24 21:55
Q4HPRN PRN
fever>100.3
Loperamide HCl 2 mg 07/20/24 08:11 07/20/24 12:30
Loperamide 2 Mg Capsule PO 08/17/24 08:10 2 mg
On Hold: 07/22/24 22:42 Q6HPRN PRN Administration
Comment: NPO diarrhea
Lorazepam 0.25 mg 07/21/24 19:21 07/22/24 06:12
Lorazepam 2 Mg/Ml Vial IV 08/18/24 19:20 0.25 mg
Q4HPRN PRN Administration
anxiety
Melatonin 5 mg 07/22/24 22:40
Melatonin 5 Mg Tablet TUBE 08/16/24 21:59
HS DANIEL
Morphine Sulfate 2 mg 07/21/24 19:23
Morphine 2 Mg/Ml Syringe IV 08/04/24 19:22
Q4HPRN PRN
sob
Mesalamine 1.2 Gram 0 grams 07/19/24 22:00 07/23/24 07:30
Tablet,Delayed PO 08/16/24 21:59 Not Given
Release (Dr/Ec)) TID DANIEL
On Hold: 07/23/24 15:09
Comment: Intubated; unable to
crush
Pantoprazole Sodium 40 mg 07/24/24 08:00
Pantoprazole Sodium 40 Mg/10 Ml Vial IV 08/21/24 07:59
DAILY DANIEL
Sodium Chloride 0 flush 07/19/24 20:00
Sodium Chloride 0.9% (Flush) Syringe IV 08/16/24 19:59
PER PROTOCOL DANIEL
Sodium Chloride 0.125 ml 07/21/24 19:31 07/21/24 19:44
Nss (Pf) 10 Ml Vial For Ativan 0.25 Mg Dose IV 08/18/24 19:30 0.125 ml
Q4HPRN PRN Administration
IV LORAZEPAM DILUTION
Sodium Chloride 10 ml 07/24/24 08:00
Sodium Chloride 0.9% (Preservative Free) 10 Ml Vial IV 08/21/24 07:59
DAILY DANIEL
Review of Systems
-
Unable to obtain full review of systems at this time due to: Patient Intubation
Physical Exam
-
General: Well Developed and Well Nourished
HEENT: Jaundice and Moist Mucous Membranes
Cardiology: Other (tachycardic)
Pulmonary: Other (Breath sounds diminished anteriorly)
GI: Soft; Negative Distended
Musculoskeletal: No Clubbing and No Cyanosis
Skin: Warm and Dry; Negative Rash
Hematologic / Lymphatic: No Lymphadenopathy
Labs
Lab Results
WBC 17.4 10^3/uL (4.8-10.8) H 07/23/24 04:14
RBC 2.93 10^6/uL (4.70-6.10) L 07/23/24 04:14
Hgb 9.3 g/dL (13.0-18.0) L 07/23/24 04:14
Hct 26.7 % (39.0-52.0) L 07/23/24 04:14
MCV 91.1 fL (80.0-94.0) 07/23/24 04:14
MCH 31.7 pg (27.0-31.0) H 07/23/24 04:14
MCHC 34.8 g/dL (33.0-37.0) 07/23/24 04:14
RDW 14.6 % (11.5-14.5) H 07/23/24 04:14
Plt Count 141 10^3/uL (130-400) 07/23/24 04:14
MPV 12.4 fL (7.4-10.4) H 07/23/24 04:14
Abs Immat Gran (auto) 0.2 10^3/uL (0-0.05) H 07/21/24 21:55
Absolute Neuts (auto) 8.4 10^3/uL (1.4-6.5) H 07/21/24 21:55
Absolute Lymphs (auto) 2.7 10^3/uL (1.2-3.4) 07/21/24 21:55
Absolute Monos (auto) 1.8 10^3/uL (0.1-0.6) H 07/21/24 21:55
Absolute Eos (auto) 0.0 10^3/uL (0-0.7) 07/21/24 21:55
Absolute Basos (auto) 0.0 10^3/uL (0-0.2) 07/21/24 21:55
Immature Gran % 1.5 % (0-0.5) H 07/21/24 21:55
Neutrophils % 64.1 % (42.2-75.2) 07/21/24 21:55
Lymphocytes % 20.4 % (20.5-51.1) L 07/21/24 21:55
Monocytes % 13.6 % (1.7-9.3) H 07/21/24 21:55
Eosinophils % 0.2 % (0-6) 07/21/24 21:55
Basophils % 0.2 % (0-2) 07/21/24 21:55
Creatinine 4.0 mg/dL (0.7-1.3) H 07/23/24 13:54
Vital Signs
Vital Signs
Temp Pulse Resp BP Pulse Ox
100.8 F H 104 21 91/60 93
07/23/24 21:00 07/23/24 21:45 07/23/24 21:45 07/22/24 21:00 07/23/24 21:50
[2024-07-23] MEDS: MOTRIN 200 MG PO (22:18)
--- NOTE | 2024-07-23 23:33 | PTCARENOTE ---
Norepi titrated to 6mcg. Changed to x2 concentrate.
No further changes in assessment.
[2024-07-24] MEDS: DIPRIVAN 100 IV ×4 (00:10→11:37)
[2024-07-24] MEDS: HEPARIN 5000 UNITS SC ×3 (00:10→16:08)
[2024-07-24] MEDS: PITRESSIN 100 IV ×2 (00:11→10:46)
[2024-07-24] MEDS: LEVOPHED 258 MG IV ×2 (00:26→13:16)
[2024-07-24] MEDS: SUBLIMAZE 50 MCG IV ×2 (00:48→14:46)
[2024-07-24 03:11] LABS: Hematocrit 23.7 % (39.0-52.0); Hemoglobin 8.8 g/dL (13.0-18.0); Mean Corp Hgb Conc. 37.1 g/dL (33.0-37.0); Mean Corpuscular Hgb 33.1 pg (27.0-31.0); Mean Corpuscular Volume 89.1 fL (80.0-94.0); Mean Platelet Volume 11.6 fL (7.4-10.4); Platelet Count 196 10^3/uL (130-400); Red Blood Cell Count 2.66 10^6/uL (4.70-6.10); Red Cell Dist. Width 15.1 % (11.5-14.5); White Blood Cell Count 20.7 10^3/uL (4.8-10.8)
[2024-07-24 03:12] LABS: B.E. -7.2 mmol/L; HCO3 20.7 mmol/L (21-28); O2 Saturation % 96.1 % (94-98); PCO2 53 mmHg (35-48); PO2 72 mmHg (83-108)
--- NOTE | 2024-07-24 03:27 | PTCARENOTE ---
Labs reviewed with ICU RITESH.
Vent Rate changed to 28.
No further changes in assessment.
[2024-07-24] MEDS: CLEOCIN 50 IV ×4 (03:35→22:56)
[2024-07-24 03:39] LABS: NT-proBNP 3530 pg/ml
[2024-07-24 03:45] LABS: ALT (SGPT) 186 U/L (0-50); AST (SGOT) 378 U/L (17-59); Albumin 2.5 g/dl (3.5-5.0); Alkaline Phosphatase 120 U/L (38-126); Blood Urea Nitrogen 82 mg/dl (9-20); Calcium 6.5 mg/dl (8.4-10.2); Carbon Dioxide 16 mmol/L (22-30); Chloride 108 mmol/L (98-107); Estimated Creatinine Clearance 17 ml/min; Glucose 134 mg/dl (70-99); Magnesium 3.2 mg/dl (1.6-2.3); Phosphorus 12.4 mg/dl (2.5-4.5); Potassium 6.1 mmol/L (3.5-5.1); Sodium 136 mmol/L (135-145); Total Bilirubin 7.5 mg/dl (0.2-1.3); eGFR 11.15
--- NOTE | 2024-07-24 03:53 | PTCARENOTE ---
Addendum entered by Conner Lee RN 07/24/24 04:18:
Nephro notified --> will start CVVHD in AM. caustic cresylate shift superintendent in room.
Original Note:
Hyperkalemia tx ordered/ Bicarb gtt ordered.
Flolan titrated down per RT.
[2024-07-24 03:54] LABS: Absolute Neutrophils -Man Diff 18.2 10^3/uL (1.4-6.5); Band Neutrophils 7 % (0-3); Lymphocytes 7 % (20-51); Monocytes 4 % (2-9); Segmented Neutrophils 81 % (42-75)
[2024-07-24 03:55] LABS: Burr Cells Slight; Metamyelocytes 1 % (-); Normal RBC Morphology No; Platelets Checked Yes; Tear Drop Red Blood Cells Slight; Total Cells Counted 100
[2024-07-24 04:04] LABS: Glucose - Point of Care 148 mg/dl (70-99)
[2024-07-24] MEDS: SODIUM BICARBONATE 50 MEQ IV (04:04)
[2024-07-24] MEDS: DEXTROSE 50% SYRINGE 25 GRAMS IV (04:04)
[2024-07-24] MEDS: NOVOLIN R 10 UNITS IV (04:04)
[2024-07-24 04:14] LABS: LDH 2968 U/L (120-246)
[2024-07-24] MEDS: SODIUM BICARBONATE 1150 MEQ IV (04:30)
[2024-07-24] MEDS: CALCIUM CHLORIDE 10% SYRINGE 60 MG IV (04:30)
[2024-07-24 05:33] LABS: Glucose - Point of Care 146 mg/dl (70-99)
[2024-07-24 05:55] VITALS: BMI 41.5
[2024-07-24 06:29] LABS: Glucose - Point of Care 138 mg/dl (70-99)
[2024-07-24] MEDS: PROTONIX IV 40 MG IV (07:28)
[2024-07-24] MEDS: NSS (PRESERVATIVE FREE) 10 ML IV (07:28)
[2024-07-24] MEDS: MEPRON SUSPENSION 750 MG TUBE ×2 (07:28→19:51)
[2024-07-24] MEDS: REFRESH CELLUVISC GEL 1 DROPS OPHTH ×2 (07:29→19:51)
[2024-07-24] MEDS: DUONEB 3 ML INH ×3 (07:46→19:33)
--- NOTE | 2024-07-24 08:00 | PTCARENOTE ---
Received pt @ change of shift intubated/sedated/retrained w b/l soft limb restraints and 4 rails- see flow sheet. RASS (-2); CPOT -0. ST on monitor. SpO2 96% on vent settings AC28/450/.80/+10. Suctioned for mod amts of thick/yellow/bloody tinged
secretions. Auscultated coarse breath sounds e scatt rhonchi throughout. Flolan admin per order by RT. Hypo BS, abd soft/obese. R nare dobhoff in place, secured d @ 75cm. Therm page in place draining kristin/brown urine; UO 5-15mL/hr. R HD cath
in place; pigtail w prop/fent/levo/vaso- see flow sheet; # 20 R FA w bicarb gtt; #20 R hand patent, dressing c/d/i. R rad A-line difficult to flush; minimal blood return; unable to obtain reading; removed- pressure applied until bleeding ceased and
clean dressing applied. Dr. Martinez made aware and anesthesia paged for new art line placement; awaiting to bedside. Pt. repositioned per protocol. Plan to initiate CRRT per nephro; awaiting orders. Family @ bedside, updated.
[2024-07-24 08:11] LABS: Glucose - Point of Care 141 mg/dl (70-99)
[2024-07-24] MEDS: SUBLIMAZE 100 IV ×2 (08:44→20:27)
[2024-07-24 08:50] VITALS: BP 126/95
--- NOTE | 2024-07-24 08:51 | W.PN.HOSP.TC ---
Today's Communication/Plan
-
Antibiotics. Mechanical ventilation. CRRT
Assessment / Plan
Assessment / Plan
Physical exam:
General: Acutely ill
HEENT: Jaundice. Normocephalic, Atraumatic and dry mucous Membranes
Respiratory: Decreased breath sounds bilaterally; Negative Wheezes, Rales or Rhonchi
Cardiac: Regular Rhythm, tachycardic, and S1/S2
GI: Soft, Nontender and Nondistended
Musculoskeletal: No Clubbing, No Cyanosis and trace Edema b/l LE.
Neuro: Sedated on the vent
A/P:
Acute hypoxic respiratory failure:
Likely ARDS due to sepsis
On mechanical ventilation, Flolan FiO2 of 80% and PEEP of 10 to keep SPO2 more than 88-90% permissive hypercapnia
Considering TF
Reviewed updated chest x-ray
Reviewed updated ABG
Plan to switch propofol to Versed drip in the setting of increased Trig
Considering paralytics if needed+/-ECMO but holding for now and see response with current measures.
Discussed with attending RN
Pulmonary/physical education aide on board
Severe septic shock due to babesiosis:
Antibiotics as below
On 2 Pressors
Severe babesiosis:
On IV clindamycin, azithromycin, atovaquone.
Also on doxycycline due to other possible tickborne illness such as ehrlichiosis or anaplasmosis or other.
Significant parasitemia on presentation 9%--> trending down.
Check parasite load daily
Follow-up WBC count, LFTs, LDH. Monitor white count and temperature curve.
ID on board
ANTON:
Likely ATN oliguric-probably microangiopathic hemolytic process leading to acute tubular injury.
Started on CRRT today
Nephrology on board
Hemolytic anemia:
Status post red blood cell exchange
Hematology on board
Hyponatremia/hyperkalemia/hypocalcemia:
Continue to monitor electrolytes
History of ulcerative colitis:
Holding mesalamine
Thrombocytopenia-resolved
Elevated LFTs-trending
Hypertriglyceridemia-monitoring
DVT prophylaxis:
Heparin SQ
CODE STATUS:
Full code
Total Critical Care Time__35___ minutes. I was immediately available to the patient and staff. I personally examined, reviewed labs, diagnostic images/reports, interpretations, treatment plans, discussed patient care with other providers and
family or caregivers (if patient is unable to make decisions), entered orders as appropriate and documented the medical record.
Anticipated Discharge: > 48 hours
Subjective/Interval History
-
Date of Service: July 24, 2024
Patient seen and examined. Remains on ventilator.
Objective Data
-
Labs:
Laboratory Results
07/24/24 07/24/24 07/24/24
02:26 08:00 08:11
WBC 20.7 H
Hgb 8.8 L
Hct 23.7 L
Plt Count 196 D
HCO3 20.7 L Pending
Sodium 136 Pending
Potassium 6.1 H* Pending
Chloride 108 H Pending
Carbon Dioxide 16 L Pending
BUN 82 H Pending
Creatinine 5.7 H* Pending
Glucose 134 H Pending
Calcium 6.5 L* Pending
Total Bilirubin 7.5 H
AST 378 H
ALT 186 H
Alkaline Phosphatase 120
Vital Signs:
Vital Signs
Temp Pulse Resp BP Pulse Ox
100.3 F 88 28 91/60 94
07/24/24 07:21 07/24/24 07:47 07/24/24 07:47 07/22/24 21:00 07/24/24 08:06
I&O
07/23/24 07/24/24 07/25/24
06:59 06:59 06:59
Intake Total 2582.9 / 2668.0 2775.2 / 2891.7 116.5 / 116.5
Output Total 490 / 495 193 / 198 5 / 5
Balance 2092.9 / 2173.0 2582.2 / 2693.7 111.5 / 111.5
[2024-07-24 09:00] VITALS: BP 125/68
[2024-07-24 09:10] LABS: Blood Urea Nitrogen 88 mg/dl (9-20); Calcium 6.6 mg/dl (8.4-10.2); Carbon Dioxide 19 mmol/L (22-30); Chloride 105 mmol/L (98-107); Estimated Creatinine Clearance 15 ml/min; Glucose 121 mg/dl (70-99); Potassium 5.4 mmol/L (3.5-5.1); Sodium 137 mmol/L (135-145); eGFR 9.35
[2024-07-24 09:15] VITALS: BP 127/67
[2024-07-24 09:30] VITALS: BP 125/71
--- NOTE | 2024-07-24 09:45 | W.PN.ID1 ---
Date of Service
Date of Service: July 24, 2024
Today's Communication
Continue current antibiotics.
Assessment / Plan
Acute babesiosis
Clinical sepsis
Fevers
Anemia
Elevated LDH
ANTON
Thrombocytopenia
Elevated bilirubin
Transaminitis
Recommendations:
Patient currently remains intubated, on 2 pressors. Progressive renal insufficiency noted. Patient now to start CRRT
Continue with atovaquone, Azithromycin and clindamycin. Doxycycline initiated over concerns for potential Ehrlichia or Anaplasma. Serology and PCR sent.
Trend white count, hemoglobin, bilirubin.
Serial (daily) parasite load testing.
Follow LFTs; stable
Trend LDH; remains elevated
Monitor white count and temperature curve.
Patient remains critically ill on 2 pressors, vent dependent in ICU
����������������������������������������������������������
Chief Complaint
-: Fever, Clinical Sepsis and Other (Babesiosis)
Subjective / Review of Systems
Patient seen and examined. Remains on vent. Remains on 2 pressors.
Vital Signs / Physical Exam
Vital Signs
Vital Signs
Temp Pulse Resp BP Pulse Ox
100.3 F 88 28 91/60 94
07/24/24 07:21 07/24/24 07:47 07/24/24 07:47 07/22/24 21:00 07/24/24 08:06
Physical Exam
Constitutional: Acutely Ill, Toxic and Obese
Head: Normocephalic
Eyes: Pupils Equal, Pupils Round and Other (Scleral icterus)
Cardiovascular: Regular Rate and S1/S2; Negative S3/S4 or Murmur
Pulmonary: Coarse and Other (ET tube in place to vent.)
Gastrointestinal: Soft, Distended and Decreased Bowel Sounds
Genito-Urinary: Agustin and Clear Urine
Extremities: Edema; Negative Cyanosis or Erythema
Neurological: Other (Sedated)
Lines: HD Cath
Objective Data
Lab Data
Lab Results
07/24/24 02:26
07/24/24 08:11
PT 17.6 Sec (11.4-14.6) H 07/23/24 04:14
INR 1.42 07/23/24 04:14
APTT 38.4 Sec (23.4-35.0) H 07/23/24 04:14
Estimated Creat Clear 15 ml/min 07/24/24 08:11
Lactic Acid Cancelled 07/19/24 23:25
Total Bilirubin 7.5 mg/dl (0.2-1.3) H 07/24/24 02:26
AST 378 U/L (17-59) H 07/24/24 02:26
ALT 186 U/L (0-50) H 07/24/24 02:26
Alkaline Phosphatase 120 U/L (38-126) 07/24/24 02:26
Most recent labs reviewed.
Micro Results:
07/23/24 04:14 Blood Culture - Preliminary
Blood/Venous No Growth in 24 hours- Final report to follow
07/23/24 04:14 Blood Culture - Preliminary
Blood/Venous No Growth in 24 hours- Final report to follow
07/24/24 02:26 Blood Parasites Smear - Pending
Blood/Venous
07/19/24 14:58 Blood Culture - Preliminary
Blood/Venous No Growth in 4 days- Final report to follow
07/19/24 13:58 Blood Culture - Preliminary
Blood/Venous No Growth in 4 days- Final report to follow
07/23/24 04:14 Blood Parasites Smear - Final
Blood/Venous Babesia species
07/22/24 18:36 Respiratory Culture - Pending
Endotracheal Gram Stain - Preliminary
07/22/24 09:40 Blood Parasites Smear - Final
Blood/Venous Babesia species
07/20/24 08:34 Salmonella/Shigella Culture - Final
Feces/Stool No Salmonella, Shigella, Aeromonas or Plesiomonas species
isolated.
Campylobacter Culture - Final
No Campylobacter species isolated.
Shiga Toxin Test - Pending
07/21/24 03:58 Blood Parasites Smear - Final
Blood/Venous Babesia species
07/20/24 13:09 Blood Parasites Smear - Final
Blood/Venous Babesia species
07/19/24 12:47 Urine Culture - Final
Urine NO GROWTH
07/20/24 08:34 C. difficile GDH Antigen & Toxins - Final
Feces/Stool Negative for toxigenic C.difficile
- Final
Negative for Norovirus GI and GII.
07/19/24 13:59 Blood Parasites Smear - Final
Blood/Venous Babesia species
07/19/24 12:47 Influenza Types A & B (WILFRID) - Final
Nasal Swab Negative for Influenza A & B, NAAT
Negative results must be combined with clinical observations
and patient history.
Nucleic Acid Amplification test (NAAT)performed on the
[employer] platform.
Blood Parasite Smear
07/19/2024
13:59 Babesia Spp.
9%
07/20/2024
13:09 Babesia Spp.
2.7%
07/21/2024
03:58 Babesia Spp.
2.4%
07/22/2024
09:40 Babesia Spp.
1.6%
07/23/2024
04:14 Babesia Spp.
0.9%
07/24/2024
02:26 Babesia Spp.
- Pending -
Imaging:
07/22/2024 CXR (portable): Right-sided central venous line seen with tip in SVC. NG tube extends into the abdomen with tip outside of image. No pneumothorax. Widespread bilateral parenchymal opacification is again identified.
07/21/2024 CXR (portable): Comparison to study earlier in the same day there are again seen bilateral areas of parenchymal opacification at least in part could be groundglass with some air bronchograms. No pneumothorax or significant pleural
effusion.
Care Review
Plan reviewed with: Physician (Critical Care)
[2024-07-24 10:24] LABS: Triglycerides 1109 mg/dl (10-149)
[2024-07-24] MEDS: RFP-400 HD Soln (K+ 2 mEq/L) 15000 ML CRRT-IRR ×2 (11:00→18:17)
[2024-07-24] MEDS: VIBRAMYCIN 260 MG IV ×2 (11:02→23:03)
[2024-07-24 11:13] LABS: Glucose - Point of Care 134 mg/dl (70-99)
[2024-07-24 11:23] LABS: B.E. -6.7 mmol/L; HCO3 20.5 mmol/L (21-28); O2 Saturation % 98.1 % (94-98); PCO2 49 mmHg (35-48); PO2 79 mmHg (83-108); pH 7.23 (7.35-7.45)
--- NOTE | 2024-07-24 11:46 | W.PN.NEPH.PH ---
Today's Communication / Plan
-
start CRRT
Assessment/Plan
-
Impression:
ANTON
Hyperkalemia
Babesiosis/Sepsis
Anemia
Thrombocytopenia
Vent dependent respiratory failure
Dyslipidemia
Chronic ulcerative colitis
Diabetes
Transaminitis with hyperbilirubinemia
Acidemia with both respiratory and metabolic
Plan:
ANTON:
- Likely related to microangiopathic hemolytic process with subsequent acute tubular injury
- Patient remains on pressor support to maintain MAP>65
- Red blood cell exchange therapy was provided 07/22
oliguric with page and cr cont to increase to 6.6, k 5.4 on repeat
CRRT started this am for worsening renal function
attempt UF 50cc/hr if tolerates increase to 100cc/hr net neg
adjust abx or meds for GFR of 33cc/min while on CRRT
hypocalcemia follow I vani and replace as needed
acidemia-resp acidosis, vent setting per iCU
- Patient critically ill on pressor support with vent dependent respiratory failure and evolving renal failure
- 40 minutes critical care time spent with patient
-
-
Date of Service: July 24, 2024
CC / HPI / ROS
-
Chief Complaint:
ANTON
History of Present Illness:
cr up at 6.6, k high at 6.1, repeat 5.4
remains on levo. on EPoprostenol for ARDS
fever last night, leucocytosis 20k
Review of Systems:
intubated 80% fio2, PEEP 10
7kg wt is up since admit
Labs
-
Labs:
WBC 20.7 10^3/uL (4.8-10.8) H 07/24/24 02:26
RBC 2.66 10^6/uL (4.70-6.10) L 07/24/24 02:26
Hgb 8.8 g/dL (13.0-18.0) L 07/24/24 02:26
Hct 23.7 % (39.0-52.0) L 07/24/24 02:26
Plt Count 196 10^3/uL (130-400) D 07/24/24 02:26
Sodium 137 mmol/L (135-145) 07/24/24 08:11
Potassium 5.4 mmol/L (3.5-5.1) H 07/24/24 08:11
Chloride 105 mmol/L (98-107) 07/24/24 08:11
Carbon Dioxide 19 mmol/L (22-30) L 07/24/24 08:11
BUN 88 mg/dl (9-20) H 07/24/24 08:11
Creatinine 6.6 mg/dL (0.7-1.3) H* 07/24/24 08:11
eGFR 9.35 07/24/24 08:11
Glucose 121 mg/dl (70-99) H 07/24/24 08:11
Calcium 6.6 mg/dl (8.4-10.2) L* 07/24/24 08:11
Phosphorus 12.4 mg/dl (2.5-4.5) H 07/24/24 02:26
Wyt-E-Fcoutkzrmxz Pept 3530 pg/ml 07/24/24 02:26
Albumin 2.5 g/dl (3.5-5.0) L 07/24/24 02:26
Physical Exam
-
Vital Signs:
Vital Signs
Temp Pulse Resp BP Pulse Ox
100.3 F 88 28 91/60 94
07/24/24 07:21 07/24/24 07:47 07/24/24 07:47 07/22/24 21:00 07/24/24 08:06
Cardiovascular:: Regular rate and rhythm
Respiratory:: Bilateral: Coarse
Lung Excursion:: Abnormal
Abdomen:: Nontender and Soft
Extremity Edema:: +1: Bilateral:
Page Catheter: Yes
--- NOTE | 2024-07-24 11:46 | W.PN.ANS.LIN ---
Anesthesia IV & A-Line Note
- IV/Arterial Line
Left Radial Arrow 20 (04/11)
Diagnosis: hypotension/shock/ARDS
IV Line Comments: Uneventful Procedure
Allens test completed pre-procedure: Yes
A-Line Comments: Sterile technique as per standard protocol, Uneventful procedure, Seldinger technique used, Ultrasound guided insertion, Biopatch applied
Funtioning A-line in situ: Yes
A-line Insertion Start Time: 09:40
A-line Insertion Stop Time: 09:50
--- NOTE | 2024-07-24 11:59 | W.PN.ONC2 ---
Today's Communication / Plan
-
daily CBC
critically ill in ICU on CRRT per nephro, abx per ID, vent & pressor support per ICU
Impression
Impression
Severe babesiosis
ARDS complicated by multiorgan failure.
Hemolytic anemia, stable
Hepatic failure as evidenced by elevated direct bilirubin and transaminases
Progressive renal insufficiency,now on CRRT
Severe bilateral pneumonia
Hypoxic respiratory failure status post intubation
Mild hepatosplenomegaly
Plan
Plan
Patient is status post Red cell exchange x 1.
Viral load has decreased to 0.1% so no role for additional Red cell exchange.
Subjective/Objective
Subjective
Vital Signs:
Vital Signs
Temp Pulse Resp BP Pulse Ox
100.3 F 88 28 91/60 95
07/24/24 07:21 07/24/24 07:47 07/24/24 07:47 07/22/24 21:00 07/24/24 11:49
Lab Results:
Laboratory Data
WBC 20.7 10^3/uL (4.8-10.8) H 07/24/24 02:26
Hgb 8.8 g/dL (13.0-18.0) L 07/24/24 02:26
Plt Count 196 10^3/uL (130-400) D 07/24/24 02:26
PT 17.6 Sec (11.4-14.6) H 07/23/24 04:14
INR 1.42 07/23/24 04:14
APTT 38.4 Sec (23.4-35.0) H 07/23/24 04:14
eGFR 9.35 07/24/24 08:11
Physical Exam
General: Well Developed and Well Nourished
HEENT: Jaundice and Moist Mucous Membranes
Cardiology: Other (tachycardic)
Pulmonary: Other (Breath sounds diminished anteriorly)
GI: Soft; Negative Distended
Musculoskeletal: No Clubbing and No Cyanosis
Skin: Warm and Dry; Negative Rash
Hematologic / Lymphatic: No Lymphadenopathy
--- NOTE | 2024-07-24 12:00 | SUR.OPER ---
Anesthesia to bedside; placed new L rad art line; transduced, calibrated, and monitored; all ports patent and secured; correlates to cuff pressure. CRRT circuit initiated per orders via R HD cath @ 1100- see flow sheet. VAT to bedside; placed R TL
PICC; verified w CXR. R arm PIVs removed. IV tubing changed and gtts switched to R TL PICC. Pt. repositioned per protocol. Complete hygiene provided. Family, updated.
--- NOTE | 2024-07-24 12:26 | W.PN.UPDATE ---
Update Note
Progress Note Update
CRRT note:
QB 250-300cc/min
QD: 2lit/hr
no heparin
UF net neg 50cc/hr
q6h labs
adjust meds GFR 33cc/min
d/w nusing
[2024-07-24 12:36] VITALS: BMI 41.5
--- NOTE | 2024-07-24 12:45 | W.PN.INTV ---
Today's Communication / Plan
Recommendations
Continue mechanical ventilation without change
Continue to follow pulmonary mechanics
Continue current antibiotics
CRRT to start
Will consider starting low-dose tube feedings.
Prognosis is guarded
Assessment
-
Assessment: 53-year-old male occasional cigar smoker with a past medical history of hyperlipidemia, GERD and ulcerative colitis who presents for fevers, chills, body aches and dark urine. His fevers have been ongoing for about 2 weeks and he has
been having a fever almost every day up to 102 �F. He went to urgent care 4 days prior to arrival and had blood work there showing low platelets with otherwise unremarkable results, per the patient. He was told he likely has a virus. The patient
has been appearing more yellow skinned over the last 24 hours prior to arrival and his urine appeared darker so he came into the hospital. Patient has not seen any ticks specifically on him but he is in his garden routinely. On admission, he was
afebrile to 99.5 �F, pulse rate 116, respiratory rate 20, BP 133/107 and saturating 97% on room air. Initial labs showed Hb 13.1, WBC 5.8, platelet count 36, 13% bands, INR 1.21, sodium 134, T. bili 8.4, AST 318, ALT 284, and urinalysis was
suggestive of UTI with positive nitrites, +2 leukocyte esterase and many urine bacteria. Acetaminophen level was negative and Lyme serology + hepatitis B and C titers/antibodies were negative. Initial flu swab was positive and blood parasite smear
showed Babesia species. 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 Initial CXR showed concern for left basilar
pneumonia. In the ER he was given a total of 2 L NS 0.9%, Zithromax and Zosyn. He was initially admitted to telemetry for further management with ID consulted. Patient had increasing oxygen requirements with worsening bilateral groundglass
opacities on CXR. Patient was transferred to the IMU on 07/20. On 07/22, he had worsening oxygen requirements while on high flow nasal cannula at 100% FiO2. Patient transferred to the ICU for further care and complementary health therapists services consulted for
additional management/recommendations.
Chronic conditions [employer]SANDB[employer]: Ulcerative colitis, hyperlipidemia, GERD
Impression:
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
#Acute noncardiogenic pulmonary edema due to above with ARDS
#Acute respiratory failure with hypoxia and hypercapnia due to above requiring mechanical ventilation (intubated 07/22/2024 by Nurse General Duty)
#Circulatory shock due to distributive shock from sedation as well as sepsis
#Igt-tkuo-mmxudxakiat hemoptysis (blood-tinged phlegm)
#Intravascular hemolysis with acute anemia due to babesiosis
#Thrombocytopenia
#Transaminitis with hyperbilirubinemia (due to intravascular analysis)
#Morbid obesity (BMI: 40)
#Hepatomegaly with diffuse hepatic steatosis
#History of ulcerative colitis on mesalamine
#GERD
Plan:
- Patient found to have anemia with signs of intravascular hemolysis and his Babesia smear showed 9% parasitemia; initial CT A/P showed hepatomegaly with old splenic infarcts and/or hemangiomas
- Patient was being managed in the IMU on high flow nasal cannula at 100% FiO2 however due to worsening respiratory rate and need for close monitoring with possible intubation, he was transferred to the ICU
- Transitioned to noninvasive ventilation on 07/22 however due to worsening bilateral pulmonary opacities seen on CXR with suspected developing ARDS, he was electively intubated on 07/22.
-
ContinuE Flolan and vent was adjusted to optimizer driving pressur
- Goal driving pressure 15�20
- Maintain plateau pressure <30 and titrate FiO2 + PEEP to keep SpO2 >88-90%
- Permissive hypercapnia.
- prn paralytics with Nimbex if needed for ventilator asynchrony-not using.
- Holding on proning for now-FiO2 down to 80%. Plateau pressure 26. PEEP down to 10.
- ABG 07/24/2024: 7.20 -(assist-control 450/28/80%/+10.
- Suspect patient have some degree of volume overload. Starting CRRT today. Hopefully will improve oxygenation.
- If unable to prone or if hypoxia persists despite proning, then would need to reach out to CT surgery to initiate VV ECMO
- Continue aspiration precautions; keep HOB >30-45�
- Continue DuoNebs TID and continue prn nebulized bronchodilators - not currently bronchospastic
- Oropharyngeal + deep ETT suctioning with subglottic as needed
- Daily CXR + blood gas
- Daily vent adjustments as needed based on blood gas and SaO2
- Continue sedation-currently propofol and fentanyl. Sedation with goal RASS as 0 to -2; can switch to deep sedation if needed based on level of ventilator synchrony or if decision made to prior.
- due to rising triglycerides discontinue propofol and start Versed drip.
- ID consulted/case discussed 07/24/2024, and continue Zithromax, clindamycin, atovaquone and now doxy
- Monitor for nausea/vomiting and diarrhea
- Treat fever accordingly with acetaminophen and cooling blankets; can consider Toradol if fever is resistant
- Blood parasite smear checked today showing 0.9% parasitemia; continue trending parasite load as per ID
- Although he has <10% parasitemia, we still made the decision to perform RBC exchange transfusion which he received on 07/22 due to his severe respiratory failure, and this significantly has improved his oxygen saturations in conjunction with the
ventilator and flolan
- Trend H/H and transfuse if needed to keep Hb>7-8g/dL; keep plt>50k
- Patient does have acute pulmonary edema and this is suspected to be from his babesiosis. Prior echo in August 31 showed preserved biventricular function with LVEF 60%
- Repeat echocardiogram pending.
- Monitor I/O-hopefully can achieve negative balance with CRRT.
- Patient is now developing severe ANTON
- Nephrology consulted
- Started CRRT 07/24/2024. Discussed with nephrology.
- Renally adjust all medications/antibiotics
- Maintain MAP >65-70 to help perfuse kidneys
- Trend serum bicarbonate level and continue bicarb drip for now. Hopefully can discontinue while on CRRT. Will defer to nephrology.
- Continue trending LFTs including LDH and T. bili; will check T. bili although this is expected to be low
Right upper quadrant ultrasound with fatty liver.
Septic shock: Currently on low-dose Levophed and vasopressin.
- Maintain MAP>65
- Continue vasopressors titrating to MAP above
- Replete electrolytes with K>4, Mg>2
- Maintain euglycemia with goal BG 140-180; check A1C
- PPI for prophylaxis.
- DVT ppx: Continue HSQ as his H/H is stable today and platelet count has been improved and currently not having bloody ETT secretions
Code status: Full code
Continue ICU level of care for this critically ill patient.
Dr. Martinez extensively discussed with family members at the bedside. All questions answered: 07/24/2024.
Discussed with infectious disease and nephrology.
Discussed in multidisciplinary rounds.
Critical care statement: A total of 50 minutes of critical care time was provided for this patient today. This includes management of unstable vital signs, evaluation of the patient at bedside, reviewing the patient's pertinent medical records
including radiographs, microbiology, laboratory evaluations, and discussion with primary team, consultants, pharmacy, nutrition, physical therapy, case management, charge nurse, critical care nursing, and respiratory therapy.
Data:
CXR 07/22/2024:
VERY SEVERE BILATERAL AIRSPACE DISEASE most suggestive of VERY SEVERE BILATERAL PNEUMONIA (left greater than right) which has markedly increased since 07/19/2024. Acute respiratory distress syndrome (ARDS) or noncardiogenic pulmonary edema are
alternative diagnostic possibilities.
CXR 07/23/2024:
1. SEVERE BILATERAL AIRSPACE CONSOLIDATION which appears unchanged and is likely secondary to SEVERE BILATERAL PNEUMONIA. Severe noncardiogenic pulmonary edema or acute respiratory distress syndrome (ARDS) are alternative diagnostic possibilities.
2. Mild elevation of the right hemidiaphragm.
3. Endotracheal tube, right IJ hemodialysis catheter, and nasogastric feeding tube remaining in place.
Subjective Dataa
Subjective Data
Date of Service:
Date of Service: July 24, 2024
Chief Complaint: Nurse General Duty Follow Up
Subjective:
Remains sedated, intubated and critically ill.
Review of Systems
General: Unobtainable - Sedation
Objective Data
Data Reviewed
Vital Signs / I&O / Oxygen:
Vital Signs
Temp Pulse Resp BP Pulse Ox
99.2 F 88 28 91/60 96
07/24/24 11:30 07/24/24 07:47 07/24/24 07:47 07/22/24 21:00 07/24/24 12:00
Intake and Output
07/23/24 07/24/24 07/25/24
06:59 06:59 06:59
Intake Total 2582.9 / 2668.0 2775.2 / 2897.2 1142.0 / 1142.0
Output Total 490 / 495 193 / 198 250 / 250
Balance 2092.9 / 2173.0 2582.2 / 2699.2 892.0 / 892.0
SaO2 [A/C] 96
SaO2 95
Nasal Cannula flow liters per 55
minute
Physical Exam
General: Respiratory Distress (negative), Comfortable, Chills (negative) and Sweats (negative)
HEENT: Normocephalic and Anicteric
Cardiovascular: S1-S2 and Peripheral Edema (+1 bilateral lower extremity edema)
Respiratory: Wheeze (negative), Crackles (Bilateral), Rhonchi (negative), Non-Labored Respirations and ET Tube (Mechanical breath sounds heard bilaterally)
GI: Soft, Distended (Abdominal obesity), Non Tender and Normal Bowel Sounds
Neurology: Tremors (negative) and Other (Sedated; pupils 2 mm bilaterally and sluggish)
Skin: Warm, Dry, Cyanosis (negative) and Jaundice (negative)
Labs/Micro/Reports
Lab Data
07/24/24 02:26
07/24/24 08:11
Laboratory Results
07/24/24 07/24/24 07/24/24
08:00 11:12
pH 7.20 L Cancelled 7.23 L
pCO2 53 H Cancelled 49 H
pO2 72 L Cancelled 79 L
HCO3 20.7 L Cancelled 20.5 L
O2 Delivery Level Cancelled Not Reportable
Microbiology
07/22/24 18:36 Endotracheal Respiratory Culture - Preliminary
07/22/24 18:36 Endotracheal Gram Stain - Preliminary
07/24/24 02:26 Blood/Venous Blood Parasites Smear - Final
Babesia species
07/20/24 08:34 Feces/Stool Salmonella/Shigella Culture - Final
No Salmonella, Shigella, Aeromonas or Plesiomonas species
isolated.
07/20/24 08:34 Feces/Stool Campylobacter Culture - Final
No Campylobacter species isolated.
07/20/24 08:34 Feces/Stool Shiga Toxin Test - Final
No E. coli Shiga Toxin 1 or 2 detected.
07/23/24 04:14 Blood/Venous Blood Culture - Preliminary
No Growth in 24 hours- Final report to follow
07/23/24 04:14 Blood/Venous Blood Culture - Preliminary
No Growth in 24 hours- Final report to follow
07/19/24 14:58 Blood/Venous Blood Culture - Preliminary
No Growth in 4 days- Final report to follow
07/19/24 13:58 Blood/Venous Blood Culture - Preliminary
No Growth in 4 days- Final report to follow
07/23/24 04:14 Blood/Venous Blood Parasites Smear - Final
Babesia species
07/22/24 09:40 Blood/Venous Blood Parasites Smear - Final
Babesia species
07/21/24 03:58 Blood/Venous Blood Parasites Smear - Final
Babesia species
[2024-07-24] MEDS: CALCIUM GLUCONATE 130 MG IV ×2 (13:15→17:39)
[2024-07-24] MEDS: VERSED 50 IV (13:15)
--- NOTE | 2024-07-24 14:04 | CM ---
Intubated, IV/AB, Organ failure, CRRT. Discharge POC: TBD.
[2024-07-24] MEDS: ZITHROMAX INFUSION 250 IV (14:10)
[2024-07-24] MEDS: VELETRI 50 ML INH (15:31)
[2024-07-24] MEDS: VELETRI 50 MCG INH (15:31)
[2024-07-24 17:13] LABS: B.E. -5.4 mmol/L; HCO3 21.5 mmol/L (21-28); O2 Saturation % 99.1 % (94-98); PCO2 49 mmHg (35-48); PO2 99 mmHg (83-108); pH 7.25 (7.35-7.45)
[2024-07-24 17:14] LABS: O2 Therapy AC/450/28/10
[2024-07-24 17:38] LABS: Blood Urea Nitrogen 79 mg/dl (9-20); Calcium 7.2 mg/dl (8.4-10.2); Carbon Dioxide 18 mmol/L (22-30); Chloride 106 mmol/L (98-107); Estimated Creatinine Clearance 17 ml/min; Glucose 124 mg/dl (70-99); Magnesium 2.9 mg/dl (1.6-2.3); Phosphorus 10.4 mg/dl (2.5-4.5); Potassium 4.7 mmol/L (3.5-5.1); Sodium 136 mmol/L (135-145); eGFR 10.48
--- NOTE | 2024-07-24 17:56 | PTCARENOTE ---
CRRT circuit clogged off @ 1500; unable to trouble shoot and curcuit discontinued. Dr. Rao made aware. New circuit initiated @ 1700 per orders-see flow sheet. Pressures elevated on new circuit; ongoing trouble shooting, circuit continues.
Dr. Rao aware.
[2024-07-24 23:22] LABS: Ionized Calcium 1.02 mMOL/L (1.15-1.33)
--- NOTE | 2024-07-24 23:30 | PTCARENOTE ---
CRRT circuit clogged. Constantly alarming. Circuit changed out completely. Access sites flushed. No blood return from venous port. Attempted to restart therapy with new setup. Venous pressure alarms unable to be rectified despite multiple nurses
attempts at trouble shooting. Dr Rao notified via tiger text. CRRT on hold for now. Ports heparinized as requested. Family notified on plan of care. Labs sent and resulted. Will monitor.
[2024-07-24 23:58] LABS: Blood Urea Nitrogen 75 mg/dl (9-20); Calcium 7.2 mg/dl (8.4-10.2); Carbon Dioxide 22 mmol/L (22-30); Chloride 109 mmol/L (98-107); Estimated Creatinine Clearance 18 ml/min; Glucose 110 mg/dl (70-99); Magnesium 2.7 mg/dl (1.6-2.3); Phosphorus 8.6 mg/dl (2.5-4.5); Potassium 4.4 mmol/L (3.5-5.1); Sodium 138 mmol/L (135-145); eGFR 11.64
[2024-07-25] MEDS: HEPARIN 5000 UNITS SC ×4 (00:37→23:34)
[2024-07-25] MEDS: HEPARIN 1300 UNITS INTRACATH (00:39)
[2024-07-25] MEDS: VERSED 2 MG IV ×4 (01:58→19:43)
[2024-07-25] MEDS: MOTRIN 200 MG PO (02:49)
[2024-07-25] MEDS: CLEOCIN 50 IV (03:54)
--- NOTE | 2024-07-25 04:00 | PTCARENOTE ---
Temp 101.2, CLEOPATRA aBrnard made aware. Kalin ALEXIS. Cooling blanket applied as ordered. Will repeat labs and monitor closely.
[2024-07-25 05:01] LABS: Ionized Calcium 0.96 mMOL/L (1.15-1.33)
[2024-07-25 05:04] LABS: B.E. -7.2 mmol/L; HCO3 20.1 mmol/L (21-28); O2 Saturation % 99.1 % (94-98); PCO2 49 mmHg (35-48); PO2 90 mmHg (83-108); pH 7.22 (7.35-7.45)
[2024-07-25 05:05] LABS: O2 Therapy 80% AC MV
[2024-07-25 05:11] LABS: INR 1.33; PT 16.8 Sec (11.4-14.6)
[2024-07-25 05:23] LABS: Hematocrit 19.7 % (39.0-52.0); Hemoglobin 7.1 g/dL (13.0-18.0); Mean Corpuscular Hgb 32.1 pg (27.0-31.0); Mean Corpuscular Volume 89.1 fL (80.0-94.0); Mean Platelet Volume 11.6 fL (7.4-10.4); Platelet Count 145 10^3/uL (130-400); Red Blood Cell Count 2.21 10^6/uL (4.70-6.10)
[2024-07-25 05:37] LABS: ALT (SGPT) 166 U/L (0-50); AST (SGOT) 300 U/L (17-59); Albumin 2.2 g/dl (3.5-5.0); Alkaline Phosphatase 165 U/L (38-126); Blood Urea Nitrogen 82 mg/dl (9-20); Calcium 7.1 mg/dl (8.4-10.2); Carbon Dioxide 20 mmol/L (22-30); Chloride 107 mmol/L (98-107); Estimated Creatinine Clearance 16 ml/min; Glucose 121 mg/dl (70-99); Potassium 5.1 mmol/L (3.5-5.1); Sodium 138 mmol/L (135-145); Total Bilirubin 7.1 mg/dl (0.2-1.3); Total Protein 5.6 g/dl (6.3-8.2); eGFR 9.89
[2024-07-25] MEDS: CALCIUM CHLORIDE 10% SYRINGE 60 MG IV (05:47)
[2024-07-25 05:50] VITALS: BMI 41.0
[2024-07-25 05:52] LABS: LDH 2156 U/L (120-246); Triglycerides 785 mg/dl (10-149)
[2024-07-25] MEDS: VERSED 50 IV ×3 (06:09→23:49)
[2024-07-25] MEDS: VELETRI 50 ML INH ×2 (06:17→22:59)
[2024-07-25] MEDS: VELETRI 50 MCG INH ×2 (06:17→22:59)
[2024-07-25 06:34] VITALS: BP 101/51
[2024-07-25 06:53] VITALS: BP 103/51
[2024-07-25] MEDS: DUONEB 3 ML INH ×3 (07:44→19:24)
[2024-07-25] MEDS: SUBLIMAZE 50 MCG IV ×3 (07:55→18:08)
[2024-07-25] MEDS: NSS (PRESERVATIVE FREE) 10 ML IV (07:56)
[2024-07-25] MEDS: PROTONIX IV 40 MG IV (07:56)
[2024-07-25] MEDS: MEPRON SUSPENSION 750 MG TUBE ×2 (07:57→19:44)
[2024-07-25] MEDS: REFRESH CELLUVISC GEL 1 DROPS OPHTH ×2 (07:57→19:44)
--- NOTE | 2024-07-25 08:00 | PTCARENOTE ---
Received pt @ change of shift intubated/sedated/retrained w b/l soft limb restraints and 4 rails- see flow sheet. ST on monitor. SpO2 96% on vent settings AC28/450/.60/+10. Suctioned for small amts of thick/yellow/bloody tinged secretions.
Auscultated coarse breath sounds w scatt rhonchi/crackles throughout. Flolan admin per order by RT. Hypo BS, abd soft/obese. R nare dobhoff in place, secured d @ 75cm; clamped and used for meds. Therm page in place draining kristin/brown urine;
UO 0-5mL/hr. R HD cath w pigtail in place; venous port w no blood return per nightshift RN. Dr. Martinez and Dr. Rao notified and IR consulted. CRRT circuit off overnight per nightshift RN. L rad A-line transduced, calibrated, and monitored;
all ports patent and secured. R TL PICC w versed, fent, levo gtts- see flow sheet; 1 unit PRBC infusing- see TAR. Pt. repositioned per protocol. Plan to exchange R HD cath and initiate traditional HD tx. Family @ bedside, updated.
[2024-07-25 08:05] LABS: % Basophils 0.4 % (0-2); % Eosinophils 0.7 % (0-6); % Lymphocytes 10.9 % (20.5-51.1); Absolute Basophils 0.1 10^3/uL (0-0.2); Absolute Eosinophils 0.2 10^3/uL (0-0.7); Absolute Immature Granulocytes 1.8 10^3/uL (0-0.05); Absolute Lymphocytes 2.4 10^3/uL (1.2-3.4); Absolute Monocytes 1.5 10^3/uL (0.1-0.6); Absolute Neutrophils 16.1 10^3/uL (1.4-6.5); Nucleated Red Blood Cells % 3.2 % (-)
--- NOTE | 2024-07-25 08:49 | W.PN.ID1 ---
Date of Service
Date of Service: July 25, 2024
Today's Communication
Continue antibiotics. Continue with supportive care.
Assessment / Plan
Acute babesiosis
Clinical sepsis
Fevers
Anemia
Elevated LDH
ANTON
Thrombocytopenia
Elevated bilirubin
Transaminitis
Recommendations:
Patient currently remains intubated. Now down to single pressor. Patient now on CRRT.
Yesterday's parasite load down to 0.1%.
Continue with atovaquone, Azithromycin. Discontinue further clindamycin.
Doxycycline initiated over concerns for potential Ehrlichia or Anaplasma. Serology and PCR pending.
Trend white count, hemoglobin, bilirubin.
Serial (daily) parasite load testing.
Follow LFTs; improving
Trend LDH; remains elevated although improving.
Monitor white count and temperature curve. Suspect fevers may be due to underlying ARDS.
Continue renal replacement therapy.
Patient remains critically ill on pressor, vent dependent in ICU
����������������������������������������������������������
Chief Complaint
-: Fever, Clinical Sepsis and Other (Babesiosis)
Subjective / Review of Systems
Patient seen and examined. Remains on vent at this time. Also on CRRT.
Review of Systems: Fever
Vital Signs / Physical Exam
Vital Signs
Vital Signs
Temp Pulse Resp BP Pulse Ox
99.6 F 106 27 103/51 92
07/25/24 08:00 07/25/24 08:00 07/25/24 08:00 07/25/24 06:53 07/25/24 08:01
Physical Exam
Constitutional: Acutely Ill, Toxic and Obese
Head: Normocephalic
Cardiovascular: Regular Rate and S1/S2; Negative S3/S4 or Murmur
Pulmonary: Coarse and Other (ET tube in place to vent.)
Gastrointestinal: Soft, Distended and Decreased Bowel Sounds
Genito-Urinary: Agustin and Clear Urine
Extremities: Edema; Negative Cyanosis or Erythema
Neurological: Other (Sedated)
Lines: HD Cath
Objective Data
Lab Data
Lab Results
07/25/24 04:48
07/25/24 04:48
PT 16.8 Sec (11.4-14.6) H 07/25/24 04:48
INR 1.33 07/25/24 04:48
APTT 38.4 Sec (23.4-35.0) H 07/23/24 04:14
Estimated Creat Clear 16 ml/min 07/25/24 04:48
Lactic Acid Cancelled 07/19/24 23:25
Total Bilirubin 7.1 mg/dl (0.2-1.3) H 07/25/24 04:48
AST 300 U/L (17-59) H 07/25/24 04:48
ALT 166 U/L (0-50) H 07/25/24 04:48
Alkaline Phosphatase 165 U/L (38-126) H 07/25/24 04:48
Most recent labs reviewed.
Micro Results:
07/25/24 04:48 Blood Parasites Smear - Pending
Blood/Venous
07/23/24 04:14 Blood Culture - Preliminary
Blood/Venous No Growth in 48 hours- Final report to follow
07/23/24 04:14 Blood Culture - Preliminary
Blood/Venous No Growth in 48 hours- Final report to follow
07/19/24 14:58 Blood Culture - Final
Blood/Venous No Growth - Final Report
07/19/24 13:58 Blood Culture - Final
Blood/Venous No Growth - Final Report
07/22/24 18:36 Respiratory Culture - Preliminary
Endotracheal Gram Stain - Preliminary
07/24/24 02:26 Blood Parasites Smear - Final
Blood/Venous Babesia species
07/20/24 08:34 Salmonella/Shigella Culture - Final
Feces/Stool No Salmonella, Shigella, Aeromonas or Plesiomonas species
isolated.
Campylobacter Culture - Final
No Campylobacter species isolated.
Shiga Toxin Test - Final
No E. coli Shiga Toxin 1 or 2 detected.
07/23/24 04:14 Blood Parasites Smear - Final
Blood/Venous Babesia species
07/22/24 09:40 Blood Parasites Smear - Final
Blood/Venous Babesia species
07/21/24 03:58 Blood Parasites Smear - Final
Blood/Venous Babesia species
07/20/24 13:09 Blood Parasites Smear - Final
Blood/Venous Babesia species
07/19/24 12:47 Urine Culture - Final
Urine NO GROWTH
07/20/24 08:34 C. difficile GDH Antigen & Toxins - Final
Feces/Stool Negative for toxigenic C.difficile
- Final
Negative for Norovirus GI and GII.
07/19/24 13:59 Blood Parasites Smear - Final
Blood/Venous Babesia species
07/19/24 12:47 Influenza Types A & B (WILFRID) - Final
Nasal Swab Negative for Influenza A & B, NAAT
Negative results must be combined with clinical observations
and patient history.
Nucleic Acid Amplification test (NAAT)performed on the
[email or web address] platform.
Blood Parasite Smear
07/19/2024
13:59 Babesia Spp.
9%
07/20/2024
13:09 Babesia Spp.
2.7%
07/21/2024
03:58 Babesia Spp.
2.4%
07/22/2024
09:40 Babesia Spp.
1.6%
07/23/2024
04:14 Babesia Spp.
0.9%
07/24/2024
02:26 Babesia Spp.
0.1%
07/25/2024
04:48 Babesia Spp.
- Pending-
Imaging:
07/25/2024 CXR (portable): Large amount of dense airspace consolidation throughout the left upper and lower lobes, and throughout the right lower and middle lobes containing air bronchograms. There is more mild airspace opacity in the right upper
lobe.
07/22/2024 CXR (portable): Right-sided central venous line seen with tip in SVC. NG tube extends into the abdomen with tip outside of image. No pneumothorax. Widespread bilateral parenchymal opacification is again identified.
07/21/2024 CXR (portable): Comparison to study earlier in the same day there are again seen bilateral areas of parenchymal opacification at least in part could be groundglass with some air bronchograms. No pneumothorax or significant pleural
effusion.
Care Review
Plan reviewed with: Physician (Critical Care)
[2024-07-25] MEDS: SODIUM BICARBONATE 50 MEQ IV (09:40)
[2024-07-25 09:59] VITALS: BP 124/58
--- NOTE | 2024-07-25 10:06 | W.PN.NEPH.PH ---
Today's Communication / Plan
-
try HD today with UF
Assessment/Plan
-
Impression:
ANTON
Hyperkalemia
Babesiosis/Sepsis
Anemia
Thrombocytopenia
Vent dependent respiratory failure
Dyslipidemia
Chronic ulcerative colitis
Diabetes
Transaminitis with hyperbilirubinemia
Acidemia with both respiratory and metabolic
Plan:
ANTON:
- Likely related to microangiopathic hemolytic process with subsequent acute tubular injury
had CRRT for few hrs intermittently on 07/24
has non functioning catheter-will have IR to replace today
will do HD today with UF as tolerates
wean pressor support as tolerated to maintain MAP>65
- Red blood cell exchange therapy was provided 07/22
oligoanuric, ok to remove page
acidemia-resp acidosis, vent setting per iCU, considering proning if no improvement with UF
- Patient critically ill on pressor support with vent dependent respiratory failure and renal failure
- 31 minutes critical care time spent with patient
d/w ICU and nursing
-
-
Date of Service: July 25, 2024
CC / HPI / ROS
-
Chief Complaint:
ANTON
History of Present Illness:
k at 5.1 , on 1 mcg of levo for hypotension
on EPoprostenol for ARDS
fever last night, leucocytosis 22k
Review of Systems:
intubated 70% fio2, PEEP 10
4kg wt is up since admit
Labs
-
Labs:
WBC 22.0 10^3/uL (4.8-10.8) H 07/25/24 04:48
RBC 2.21 10^6/uL (4.70-6.10) L 07/25/24 04:48
Hgb 7.1 g/dL (13.0-18.0) L 07/25/24 04:48
Hct 19.7 % (39.0-52.0) L* 07/25/24 04:48
Plt Count 145 10^3/uL (130-400) D 07/25/24 04:48
Sodium 138 mmol/L (135-145) 07/25/24 04:48
Potassium 5.1 mmol/L (3.5-5.1) 07/25/24 04:48
Chloride 107 mmol/L (98-107) 07/25/24 04:48
Carbon Dioxide 20 mmol/L (22-30) L 07/25/24 04:48
BUN 82 mg/dl (9-20) H 07/25/24 04:48
Creatinine 6.3 mg/dL (0.7-1.3) H* 07/25/24 04:48
eGFR 9.89 07/25/24 04:48
Glucose 121 mg/dl (70-99) H 07/25/24 04:48
Calcium 7.1 mg/dl (8.4-10.2) L 07/25/24 04:48
Phosphorus 8.6 mg/dl (2.5-4.5) H 07/24/24 23:13
Ajh-Y-Qlyosukqyhc Pept 3530 pg/ml 07/24/24 02:26
Albumin 2.2 g/dl (3.5-5.0) L 07/25/24 04:48
Physical Exam
-
Vital Signs:
Vital Signs
Temp Pulse Resp BP Pulse Ox
99.6 F 108 28 124/58 92
07/25/24 09:59 07/25/24 09:59 07/25/24 09:59 07/25/24 09:59 07/25/24 09:04
Cardiovascular:: Regular rate and rhythm
Respiratory:: Bilateral: Coarse
Lung Excursion:: Abnormal
Abdomen:: Nontender and Soft
Extremity Edema:: +2: Bilateral:
Page Catheter: Yes
Other Findings::
gen edema
--- NOTE | 2024-07-25 10:14 | W.PN.INTV ---
Today's Communication / Plan
Recommendations
Continue to adjust mechanical ventilation dependence on pulmonary mechanics
Will decrease FiO2 as able
Start hemodialysis today
Continue antibiotics
Daily chest x-ray
Hemodialysis catheter exchange 07/25/2024
Hold nutrition due to hypercalcemia-will monitor daily
Continue sedation with fentanyl/Versed-deep sedation
As needed paralytics
If there is no response to negative fluid balance will consider prone positioning and discussing with tertiary [facility].
Prognosis is guarded
Assessment
-
Assessment: 53-year-old male occasional cigar smoker with a past medical history of hyperlipidemia, GERD and ulcerative colitis who presents for fevers, chills, body aches and dark urine. His fevers have been ongoing for about 2 weeks and he has
been having a fever almost every day up to 102 �F. He went to urgent care 4 days prior to arrival and had blood work there showing low platelets with otherwise unremarkable results, per the patient. He was told he likely has a virus. The patient
has been appearing more yellow skinned over the last 24 hours prior to arrival and his urine appeared darker so he came into the hospital. Patient has not seen any ticks specifically on him but he is in his garden routinely. On admission, he was
afebrile to 99.5 �F, pulse rate 116, respiratory rate 20, BP 133/107 and saturating 97% on room air. Initial labs showed Hb 13.1, WBC 5.8, platelet count 36, 13% bands, INR 1.21, sodium 134, T. bili 8.4, AST 318, ALT 284, and urinalysis was
suggestive of UTI with positive nitrites, +2 leukocyte esterase and many urine bacteria. Acetaminophen level was negative and Lyme serology + hepatitis B and C titers/antibodies were negative. Initial flu swab was positive and blood parasite smear
showed Babesia species. 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 Initial CXR showed concern for left basilar
pneumonia. In the ER he was given a total of 2 L NS 0.9%, Zithromax and Zosyn. He was initially admitted to telemetry for further management with ID consulted. Patient had increasing oxygen requirements with worsening bilateral groundglass
opacities on CXR. Patient was transferred to the IMU on 07/20. On 07/22, he had worsening oxygen requirements while on high flow nasal cannula at 100% FiO2. Patient transferred to the ICU for further care and bottle caser services consulted for
additional management/recommendations.
Chronic conditions [employer] D[employer]: Ulcerative colitis, hyperlipidemia, GERD
Impression:
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
#Acute noncardiogenic pulmonary edema due to above with ARDS
#Acute respiratory failure with hypoxia and hypercapnia due to above requiring mechanical ventilation (intubated 07/22/2024 by Thread Spooler)
#Circulatory shock due to distributive shock from sedation as well as sepsis
#Rjl-dcet-finaucrqdfj hemoptysis (blood-tinged phlegm)
#Intravascular hemolysis with acute anemia due to babesiosis
#Thrombocytopenia
#Transaminitis with hyperbilirubinemia (due to intravascular analysis)
#Morbid obesity (BMI: 40)
#Hepatomegaly with diffuse hepatic steatosis
#History of ulcerative colitis on mesalamine
#GERD
Plan:
- Patient found to have anemia with signs of intravascular hemolysis and his Babesia smear showed 9% parasitemia; initial CT A/P showed hepatomegaly with old splenic infarcts and/or hemangiomas
- Transitioned to noninvasive ventilation on 07/22 however due to worsening bilateral pulmonary opacities seen on CXR with suspected developing ARDS, he was electively intubated on 07/22.
-
Day #3 mechanical ventilation. Remains critically ill.
Mechanical ventilation settings reviewed.
Remains sensitive to positioning and sedation-easily desats.
Assist-control 450/28/+10/70%.
ABG 07/25/2024 4:48 AM: 7.22/49/90.
Continue low volume/protective lung ventilatory strategy.
Chest x-ray 07/25/2024: Reviewed, showed persistent bilateral infiltrates-consistent with ARDS/possible volume overload
Peak pressure 31-33, plateau pressure 26-28.
- Maintain plateau pressure <30 and titrate FiO2 + PEEP to keep SpO2 >88-90%
- Permissive hypercapnia.
- prn paralytics with Nimbex if needed for ventilator asynchrony-not using.
- Suspect patient have some degree of volume overload.
CRRT started 07/24/2024-overnight not as effective-surgical was clotted. Line was clotted.
Start hemodialysis today 07/25/2024-discussed with nephrology.
- Continue Flolan for additional 24 hours.
- If there is no ongoing improvement with negative fluid balance then will consider proning and contact you [facility] preemptively for possible ECMO in the future. This will occur in the next 24 to 48 hours depending on clinical situation.
- Continue aspiration precautions; keep HOB >30-45�
- Continue DuoNebs TID and continue prn nebulized bronchodilators - not currently bronchospastic
- Daily CXR + blood gas
- Daily vent adjustments as needed based on blood gas and SaO2
Continue sedation for RASS score-0 to -2. Deep sedation.
Paralytics as needed
Propofol discontinued 07/24/2024 due to hypertriglyceridemia
Continue fentanyl and Versed drip.
-Follow triglycerides.
Septic shock: Hemodynamics improved.
Currently on low-dose Levophed. Continue to target mean arterial blood pressure 65 mmHg-will titrate up if necessary during dialysis.
Vasopressin discontinued .
Case discussed with infectious disease: Will continue atovaquone/Zithromax. Clindamycin discussed the need 07/24/2024.
Parasitemia decreased to 0.1% 07/24/2024 decreased from 9% parasitemia ----->repeated smear pending 07/25/2024
LDH trending lower.
Hemoglobin decreased overnight-multifactorial due to hemolysis and critical illness. Status post 1 unit of packed red blood cells 07/24/2024.
-
Status post RBC exchange transfusion 07/22/2024.
Hematology following the patient
- Trend H/H and transfuse if needed to keep Hb>7-8g/dL; keep plt>50k
- Patient does have acute pulmonary edema and this is suspected to be from his babesiosis. Prior echo in August 31 showed preserved biventricular function with LVEF 60%
- Repeat echocardiogram: Diastolic dysfunction. Normal LVEF. Normal RV function.
- Start dialysis-hopefully can achieve negative fluid balance as I suspect there is volume overload.
-Acute kidney injury-oliguric
Weight significantly elevated since admission.
- Nephrology Case discussed with Dr. Martinez 07/25/2024. Transition from CRRT to hemodialysis as patient has clotting issues. Hemodynamics have improved.
- Started CRRT 07/24/2024-discontinued 07/25/2024 care companion due to clotting issues.
- Renally adjust all medications/antibiotics
- Maintain MAP >65-70 to help perfuse kidneys
- Will give 1 dose of bicarbonate to help with metabolic acidosis component.
- Continue trending LFTs including LDH -stable to trending lower. Likely due to ongoing hemolysis.
Right upper quadrant ultrasound with fatty liver.
- Replete electrolytes with K>4, Mg>2
- Maintain euglycemia with goal BG 140-180; check A1C
- PPI for prophylaxis.
- DVT ppx: Continue HSQ as his H/H is stable today and platelet count has been improved and currently not having bloody ETT secretions
Hold nutrition for now due to hypertriglyceridemia. NG tube in place
Discussed with nutrition.
Code status: Full code
Continue ICU level of care for this critically ill patient.
Dr. Martinez extensively discussed with family members at the bedside. All questions answered: 07/24/2024, 07/25/2024 extensively and multiple times throughout the day.
Discussed with infectious disease and nephrology, primary team, interventional radiology on 07/25/2024.
Discussed in multidisciplinary rounds.
Critical care statement: A total of 90 minutes of critical care time was provided for this patient today. This includes management of unstable vital signs, evaluation of the patient at bedside, reviewing the patient's pertinent medical records
including radiographs, microbiology, laboratory evaluations, and discussion with primary team, consultants, pharmacy, nutrition, physical therapy, case management, charge nurse, critical care nursing, and respiratory therapy.
Data:
CXR 07/22/2024:
VERY SEVERE BILATERAL AIRSPACE DISEASE most suggestive of VERY SEVERE BILATERAL PNEUMONIA (left greater than right) which has markedly increased since 07/19/2024. Acute respiratory distress syndrome (ARDS) or noncardiogenic pulmonary edema are
alternative diagnostic possibilities.
CXR 07/23/2024:
1. SEVERE BILATERAL AIRSPACE CONSOLIDATION which appears unchanged and is likely secondary to SEVERE BILATERAL PNEUMONIA. Severe noncardiogenic pulmonary edema or acute respiratory distress syndrome (ARDS) are alternative diagnostic possibilities.
2. Mild elevation of the right hemidiaphragm.
3. Endotracheal tube, right IJ hemodialysis catheter, and nasogastric feeding tube remaining in place.
Subjective Dataa
Subjective Data
Date of Service:
Date of Service: July 25, 2024
Chief Complaint: Thread Spooler Follow Up (Septic shock/ARDS)
Subjective:
Sedated, on mechanical ventilation. Critically ill unable to provide history.
CRRT started 07/24/2024
Review of Systems
General: Unobtainable - Sedation
Objective Data
Data Reviewed
Vital Signs / I&O / Oxygen:
Vital Signs
Temp Pulse Resp BP Pulse Ox
99.6 F 108 28 124/58 92
07/25/24 09:59 07/25/24 09:59 07/25/24 09:59 07/25/24 09:59 07/25/24 09:04
Intake and Output
07/24/24 07/25/24 07/26/24
06:59 06:59 06:59
Intake Total 2775.2 / 2897.2 2742.5 / 2889.5 645.2 / 645.2
Output Total 193 / 198 1644 / 1649
Balance 2582.2 / 2699.2 1098.5 / 1240.5 635.2 / 635.2
SaO2 [A/C] 93
SaO2 92
Nasal Cannula flow liters per 55
minute
Physical Exam
General: Respiratory Distress (negative), Comfortable, Chills (negative) and Sweats (negative)
HEENT: Normocephalic and Anicteric
Cardiovascular: S1-S2 and Peripheral Edema (+1 bilateral lower extremity edema)
Respiratory: Wheeze (negative), Crackles (Bilateral), Rhonchi (negative), Non-Labored Respirations and ET Tube (Mechanical breath sounds heard bilaterally)
GI: Soft, Distended (Abdominal obesity), Non Tender and Normal Bowel Sounds
Neurology: Other (Sedated; pupils 2 mm bilaterally and sluggish) and Other (Occasionally overbreathing the ventilator.)
Skin: Warm, Dry, Cyanosis (negative) and Jaundice (negative)
Labs/Micro/Reports
Lab Data
07/25/24 04:48
07/25/24 04:48
Laboratory Results
07/24/24 07/24/24 07/24/24
08:00 11:12 17:05
PT
INR
pH Cancelled 7.23 L 7.25 L
pCO2 Cancelled 49 H 49 H
pO2 Cancelled 79 L 99
HCO3 Cancelled 20.5 L 21.5
O2 Delivery Level Cancelled Not Reportable Ac//10
07/25/24
04:48
PT 16.8 H
INR 1.33
pH 7.22 L
pCO2 49 H
pO2 90
HCO3 20.1 L
O2 Delivery Level 80% ac mv
Microbiology
07/23/24 04:14 Blood/Venous Blood Culture - Preliminary
No Growth in 48 hours- Final report to follow
07/23/24 04:14 Blood/Venous Blood Culture - Preliminary
No Growth in 48 hours- Final report to follow
07/19/24 14:58 Blood/Venous Blood Culture - Final
No Growth - Final Report
07/19/24 13:58 Blood/Venous Blood Culture - Final
No Growth - Final Report
07/22/24 18:36 Endotracheal Respiratory Culture - Preliminary
07/22/24 18:36 Endotracheal Gram Stain - Preliminary
07/24/24 02:26 Blood/Venous Blood Parasites Smear - Final
Babesia species
07/20/24 08:34 Feces/Stool Salmonella/Shigella Culture - Final
No Salmonella, Shigella, Aeromonas or Plesiomonas species
isolated.
07/20/24 08:34 Feces/Stool Campylobacter Culture - Final
No Campylobacter species isolated.
07/20/24 08:34 Feces/Stool Shiga Toxin Test - Final
No E. coli Shiga Toxin 1 or 2 detected.
07/23/24 04:14 Blood/Venous Blood Parasites Smear - Final
Babesia species
07/22/24 09:40 Blood/Venous Blood Parasites Smear - Final
Babesia species
--- NOTE | 2024-07-25 10:16 | CM ---
Patient currently in ICU on Vent, day 3. Patient for HD today per [facility] [employer] and CM will continue to follow for discharge planning needs.
Plan; pending medical treatment plan;
[2024-07-25] MEDS: VIBRAMYCIN 260 MG IV ×2 (10:34→21:28)
[2024-07-25] MEDS: SUBLIMAZE 100 IV ×3 (10:42→23:50)
--- NOTE | 2024-07-25 11:00 | PTCARENOTE ---
Addendum entered by Mony Colin RN 07/25/24 13:21:
ABG results reviewed by Dr. Martinez and RT attempting to wean down PEEP as tolerated. Current vent settings AC28/450/.70/+12; tolerating.
Original Note:
pt. w desaturation episodes into mid-high 80's. Suctioned for small amt of yellow/bloody tinged secretions. Vent settings adjusted to AC28/450/.70/+[address] Martinez. ABG drawn and sent to lab during vent adjustments. SpO2 recovered s/p vent
setting changes; awaiting ABG results.
[2024-07-25 11:08] LABS: B.E. -7.1 mmol/L; HCO3 20.7 mmol/L (21-28); O2 Saturation % 95.5 % (94-98); PCO2 53 mmHg (35-48); PO2 74 mmHg (83-108)
[2024-07-25 11:11] LABS: Ionized Calcium 0.99 mMOL/L (1.15-1.33)
[2024-07-25 11:12] LABS: Hematocrit 21.9 % (39.0-52.0); Hemoglobin 7.7 g/dL (13.0-18.0); Mean Corp Hgb Conc. 35.2 g/dL (33.0-37.0); Mean Corpuscular Hgb 30.9 pg (27.0-31.0); Mean Platelet Volume 11.1 fL (7.4-10.4); Platelet Count 141 10^3/uL (130-400); Red Blood Cell Count 2.49 10^6/uL (4.70-6.10); Red Cell Dist. Width 15.3 % (11.5-14.5); White Blood Cell Count 22.7 10^3/uL (4.8-10.8)
[2024-07-25 11:47] LABS: Glucose - Point of Care 119 mg/dl (70-99)
--- NOTE | 2024-07-25 12:03 | W.PN.ONC ---
Today's Communication / Plan
-
Parasite load has decreased to 0.1% as of 07/24 - no role for additional Red cell exchange.
Blood smear today pending
Due for hemodialysis today
Impression
Impression
Severe babesiosis
ARDS complicated by multiorgan failure.
Hemolytic anemia, stable
Hepatic failure as evidenced by elevated direct bilirubin and transaminases
Progressive renal insufficiency,now on CRRT
Severe bilateral pneumonia
Hypoxic respiratory failure status post intubation
Mild hepatosplenomegaly
Plan
Plan
Patient is status post Red cell exchange x 1.
Parasite load has decreased to 0.1% as of 07/24 - no role for additional Red cell exchange. Blood smear today pending
Due for hemodialysis today
Antibiotics per primary team
Subjective/Objective
Subjective/Objective
Patient ventilated and sedated
Vital Signs:
Vital Signs
Temp Pulse Resp BP Pulse Ox
100.1 F 108 28 124/58 97
07/25/24 11:26 07/25/24 11:00 07/25/24 11:00 07/25/24 09:59 07/25/24 11:00
Lab Results:
Laboratory Data
WBC 22.7 10^3/uL (4.8-10.8) H 07/25/24 10:56
Hgb 7.7 g/dL (13.0-18.0) L 07/25/24 10:56
Plt Count 141 10^3/uL (130-400) 07/25/24 10:56
PT 16.8 Sec (11.4-14.6) H 07/25/24 04:48
INR 1.33 07/25/24 04:48
APTT 38.4 Sec (23.4-35.0) H 07/23/24 04:14
eGFR 9.89 07/25/24 04:48
[2024-07-25] MEDS: HEPARIN 500 UNITS IV ×2 (12:40→13:40)
[2024-07-25 12:46] LABS: Blood Urea Nitrogen 89 mg/dl (9-20); Calcium 7.3 mg/dl (8.4-10.2); Carbon Dioxide 20 mmol/L (22-30); Chloride 108 mmol/L (98-107); Estimated Creatinine Clearance 14 ml/min; Glucose 109 mg/dl (70-99); Phosphorus 10.3 mg/dl (2.5-4.5); Potassium 5.3 mmol/L (3.5-5.1); Sodium 137 mmol/L (135-145); eGFR 8.86
[2024-07-25] MEDS: MANNITOL 25% 12.5 GRAMS IV ×2 (12:50→14:30)
[2024-07-25] MEDS: FLEXBUMIN 25% FOR HEMODIALYSIS 12.5 GRAMS IV ×2 (12:55→14:20)
--- NOTE | 2024-07-25 13:00 | PTCARENOTE ---
R IJ HD cath exchanged @ bedside this AM by IR; placement verified w x-ray. HD RN to bedside @ this time and 1st traditional treatment in progress.
[2024-07-25] MEDS: RETACRIT 10000 UNITS IV (13:55)
[2024-07-25] MEDS: ZITHROMAX INFUSION 250 IV (13:59)
--- NOTE | 2024-07-25 14:55 | W.PN.NEPH.HD ---
Assessment
-
pt seen during HD
vitals stable, low dose of levo
UF as tolerated
HD again tomorrow
temp HD catheter functions fine now post exchange
Progress Note - Hemodialysis
-
Date of Service: July 25, 2024
Duration: 45 minutes and 2 hours
Potassium Bath: 2
Calcium Bath: 2.5
Opti-Dialyzer: 160
Ultrafiltration: Other (2.5kg)
Blood Flow: 300
Dialysate Flow: 600
Heparin: yesx2
EPO: 21025
--- NOTE | 2024-07-25 15:00 | W.PN.HOSP.TC ---
Addendum entered and electronically signed by Aster Leon MD 07/25/24 19:13:
I saw and evaluated the patient independently. I reviewed the resident�s note and agree with findings and plan as documented by Dr. Lr.
GENERAL: well developed, well nourished, obese male in no apparent distress--getting dialysis
HEENT: NC/AT--intubated
HEART: regular rate and rhythm, +S1, +S2
LUNGS : clear to auscultation bilaterally
ABDOM: soft, nontender, nondistended, + bowel sounds
EXT: no cyanosis, clubbing--4+ edema x 4 extremities--HD cath--soft limb restraints
NEUROLOGIC: sedated
: page cath
Severe septic shock due to babesiosis--requiring pressors--weaning to off--parasite load on admission 9%--down to 0 (no parasites seen today 07/25)--cont azithromycin, atovaquone, doxycycline--clindamycin stopped--Follow-up WBC count, LFTs,
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
VDRF from Acute hypoxic respiratory failure Likely from ARDS due to sepsis--cont vent--increased FIO2 requirements--cont flolan for 72H--trying to dialyze fluid off to help with oxygenation--following CXR and ABGs--change sedation to versed
drip--consider paralytics, proning, ECMO at [facility] if no improvement--apprec intensivists--CXR with severe bilateral pna vs ARDS?
ANTON--creat rising--likely from microangiopathic hemolytic process with subsequent acute tubular injury--did not tolerate CRRT--getting standard dialysis--apprec renal
Hemolytic anemia--from parasitemia--s/p red blood cell exchange--hopefully will also improve oxygenation--trend HGB--apprec heme/onc
Hyponatremia/hyperkalemia/hypocalcemia--correcting with HD--Continue to monitor electrolytes
History of ulcerative colitis--Holding mesalamine
Thrombocytopenia-resolved
Elevated LFTs--CT abdomen/pelvis with fatty infiltration of liver--with some component of hemolysis--trend
Hypertriglyceridemia--likely from propofol plus obesity---monitor
DVT proph--SC heparin
CODE STATUS--Full code
Total Critical Care Time 33 minutes. I was immediately available to the patient and staff. I personally examined, reviewed labs, diagnostic images/reports, interpretations, treatment plans, discussed patient care with other providers and family
or caregivers (if patient is unable to make decisions), entered orders as appropriate and documented the medical record.
Original Note:
Today's Communication/Plan
-
.
Assessment / Plan
Assessment / Plan
A/P:
1. Acute Hypoxic Respiratory Failure (Vent Day 3)
- Likely secondary to ARDS in the setting of sepsis
- Vent Settings RR 28 TV 450 PEEP 10 FiO2 60% this AM
- Vent Settings per Histology Assistant
- ABG (07/25): pH 7.22 pCO2 49, HCO3 20, pO2 90
- ABG (07/25pm): pH 7.31 pCO2 49, HCO3 24.7, pO2 71
- Continue to Monitor ABGs
- CXR (07/25): SEVERE BILATERAL PNEUMONIA which appears unchanged.
- Versed and Fentanyl for sedation/analgesia
- Appreciate PCCM Recommendations
- PRN Paralytics
- If there is no improvement in clinical condition with negative fluid balance, consider prone positioning and transfer to tertiary care hospital for ECMO
2. Septic Shock 2/2 Bloodborne Parasitic Infection
- Stable BP today, even in setting of HD.
- Currently on low dose pressors
- MAP Goal 65; may need uptitration during HD
3. Babesiosis:
- Appreciate ID Recommendations
- Continue ABx: azithromycin, atovaquone. Clindamycin discontinued today.
- Also on doxycycline due to possible coinfection.
- Lyme's Screen Negative
- Follow up Ehrlichia
- Significant parasitemia on presentation 9%--> Parasite Load down to 0.1% today.
- LDH downtrending, hopefully in the setting of decreased hemolysis
- Follow-up WBC count, LFTs, LDH. Monitor white count and temperature curve.
4. Acute Kidney Injury
- Likely ATN oliguric-probably microangiopathic hemolytic process leading to acute tubular injury.
- CRRT started on 07/24; only 7 hours done yesterday due to clogged tubing; IR replaced today; Hemodialysis started instead.
- Appreciate Nephrology Recommendations
- BP stable during and s/p hemodialysis
5. 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
- Red Cell Exchange Transfusion - 07/23
- Continue to monitor Hb Daily; parasite load down to 0.1%
6. Transaminitis
- Downtrending
- CT ABd/Pelv and US show fatty infiltration
- Values more likely represent hemolysis
- Continue to monitor CMP daily
DVT prophylaxis:Heparin SQ
CODE STATUS:Full
Diet: NG Tube - Hold for hypertriglyceridemia
Anticipated Discharge: > 48 hours
Subjective/Interval History
-
Date of Service: July 25, 2024
Post medical history, ED course, hospital course, lab studies, imaging, procedures reviewed.
Briefly, Mr. Echevarria is a 53-year-old male with a past medical history of hyperlipidemia, ulcerative colitis, GERD who presented 6 days ago with daily fevers X 2 weeks (Tmax equals 102.7). Additionally, patient complaining of chills, body aches,
dark urine. Patient went to urgent care 4 days prior to arrival who noted thrombocytopenia. 24 hours prior to arrival, patient appeared more jaundiced with darker urine so he came to hospital.
In the emergency department, patient was initially afebrile (but had fever of 102 later in the day), appeared jaundice, was icteric. Labs showed a platelet count of 36, 13% bands, INR 1.2, total bilirubin of 8.4, AST 318, ALT 284. Urinalysis
exhibited urobilinogen and bilirubin in elevated quantities. CT abdomen/pelvis revealed diffuse hepatic steatosis and bibasilar pneumonia. Chest x-ray revealed a left basilar pneumonia. Patient was started on Zithromax and Zosyn and admitted to ""hospital. After admission, peripheral blood smear resulted showing Babesia. Patient was transition to p.o. atovaquone and IV azithromycin. Day after admission, patient had increasing oxygen requirements and worsening bilateral groundglass
opacities on chest x-ray. Patient was transferred to the IMU. While in IMU, patient failed high flow nasal cannula of 100%. On 07/22, patient was transferred to the ICU and electively intubated. Additionally, given parasite load was given RBC
exchange infusion.
Yesterday, parasite burden was 0.9%. CRRT was initiated secondary to worsening renal failure. Only 7 total hours of CRRT yesterday. Per nursing, line was clogged and thus patient to go to IR today. Patient currently on 1 unit Levophed. FiO2 60,
PEEP 10, tidal volume 450, respiratory rate 28 this a.m.
Objective Data
-
Labs:
Laboratory Results
07/25/24 07/25/24 07/25/24
04:48 10:55 10:56
WBC 22.0 H 22.7 H
Hgb 7.1 L 7.7 L
Hct 19.7 L* 21.9 L
Plt Count 145 D 141
PT 16.8 H
INR 1.33
HCO3 20.1 L 20.7 L
Sodium 138 137
Potassium 5.1 5.3 H
Chloride 107 108 H
Carbon Dioxide 20 L 20 L
BUN 82 H 89 H
Creatinine 6.3 H* 6.9 H*
Glucose 121 H 109 H
Calcium 7.1 L 7.3 L
Total Bilirubin 7.1 H
AST 300 H
ALT 166 H
Alkaline Phosphatase 165 H
Vital Signs:
Vital Signs
Temp Pulse Resp BP Pulse Ox
100.1 F 95 28 124/58 95
07/25/24 11:26 07/25/24 13:28 07/25/24 13:28 07/25/24 09:59 07/25/24 13:28
I&O
07/24/24 07/25/24 07/26/24
06:59 06:59 06:59
Intake Total 2775.2 / 2897.2 2742.5 / 2889.5 933.2 / 933.2
Output Total 193 / 198 1644 / 1649
Balance 2582.2 / 2699.2 1098.5 / 1240.5 913.2 / 913.2
Review of Systems
-
Unable to obtain full review of systems at this time due to: Patient Intubation
Physical Exam
-
General: Intubated
HEENT: Normocephalic, Atraumatic and Anicteric
Respiratory: Non Labored Respirations and Other (ET tube in place. Good airflow bilaterally.)
Cardiac: Regular Rhythm and S1/S2
GI: Soft, Normal Bowel Sounds and Other (Obese)
Musculoskeletal: No Clubbing, No Cyanosis and Other (1+ lower extremity edema bilaterally, edema of the left and right upper extremities.)
Skin: Warm and Dry; Negative Jaundice
Neuro: Sedated
Psych: Calm
Data Reviewed
-
Diagnostic Radiology: Report Reviewed by me
CT Scan: Report Reviewed by me
Ultrasound: Report Reviewed by me
Medical Tests (Nuc Med, Echo etc): Report Reviewed by me
Labs: Labs Reviewed by me and Discussed with Patient
[2024-07-25] MEDS: HEPARIN 2500 UNITS INTRACATH (15:49)
[2024-07-25 16:07] LABS: B.E. -1.6 mmol/L; HCO3 24.7 mmol/L (21-28); O2 Saturation % 95.9 % (94-98); PCO2 49 mmHg (35-48); PO2 71 mmHg (83-108); pH 7.31 (7.35-7.45)
[2024-07-25 16:10] LABS: Ionized Calcium 0.98 mMOL/L (1.15-1.33)
[2024-07-25 16:51] LABS: Blood Urea Nitrogen 54 mg/dl (9-20); Calcium 7.4 mg/dl (8.4-10.2); Carbon Dioxide 22 mmol/L (22-30); Chloride 105 mmol/L (98-107); Estimated Creatinine Clearance 24 ml/min; Glucose 97 mg/dl (70-99); Magnesium 2.4 mg/dl (1.6-2.3); Phosphorus 6.3 mg/dl (2.5-4.5); Potassium 4.3 mmol/L (3.5-5.1); Sodium 138 mmol/L (135-145); eGFR 16.55
--- NOTE | 2024-07-25 17:14 | W.PN.UPDATE ---
Update Note
Progress Note Update
Tolerated hemodialysis well
2.5 kg were taken off
Repeat labs with improved acid-base status.
ABG reviewed 7./08-cuwcck-mvlfios/450/24/60%/+ 10
Overall some improvement compared to yesterday.
Hemodialysis will continue
PF ratio still around around 120 fluctuating.
Hopefully as patient becomes fluid balance negative PF ratio will continue to improve.
If there is no ongoing improvement despite second dialysis tomorrow we will perform prone positioning as well as discussed with [facility] for ECMO evaluation.
Repeat chest x-ray tomorrow
Repeat ABG
Calcium gluconate will be given x 1 today.
-
Case discussed with family at the bedside 07/25/2024 5:16 PM.
-
Additional critical care time 20 minutes
[2024-07-25 17:20] LABS: Hematocrit 22.3 % (39.0-52.0); Mean Corp Hgb Conc. 35.9 g/dL (33.0-37.0); Mean Corpuscular Volume 86.4 fL (80.0-94.0); Mean Platelet Volume 11.2 fL (7.4-10.4); Platelet Count 142 10^3/uL (130-400); Red Blood Cell Count 2.58 10^6/uL (4.70-6.10); Red Cell Dist. Width 15.4 % (11.5-14.5); White Blood Cell Count 19.5 10^3/uL (4.8-10.8)
[2024-07-25 17:30] LABS: LDH 2178 U/L (120-246)
[2024-07-25] MEDS: CALCIUM GLUCONATE 1000 MG IV (17:35)
[2024-07-25 18:28] LABS: Absolute Neutrophils -Man Diff 17.1 10^3/uL (1.4-6.5); Band Neutrophils 1 % (0-3); Segmented Neutrophils 87 % (42-75)
[2024-07-25 18:29] LABS: Lymphocytes 3 % (20-51); Metamyelocytes 3 % (-); Monocytes 1 % (2-9); Myelocytes 4 % (-); Normal RBC Morphology No; Nucleated Red Blood Cells 3 (-); Platelets Checked Yes; Promyelocytes 1 % (-)
[2024-07-25 18:30] LABS: Tear Drop Red Blood Cells Slight; Total Cells Counted 100
[2024-07-25 18:31] LABS: % Basophils 0.6 % (0-2); % Eosinophils 1.2 % (0-6); % Immature Granulocytes 9.3 % (0-0.5); % Lymphocytes 8.4 % (20.5-51.1); % Neutrophils 75.5 % (42.2-75.2); Absolute Basophils 0.1 10^3/uL (0-0.2); Absolute Eosinophils 0.2 10^3/uL (0-0.7); Absolute Immature Granulocytes 1.8 10^3/uL (0-0.05); Absolute Lymphocytes 1.6 10^3/uL (1.2-3.4); Absolute Neutrophils 14.7 10^3/uL (1.4-6.5); Nucleated Red Blood Cells % 5.3 % (-)
--- NOTE | 2024-07-25 18:32 | SUR.OPER ---
pt. tolerated traditional HD tx. off pressors; 2.5 kilos off per HD RN. Vent settings weaned by RT- currently on AC28/450/.70/+10; SpO2 95%. Secretions decreasing. Complete hygiene provided. Pt. repositioned per protocol and continuous rotation
mattress active. Family @ bedside, updated.
[2024-07-25] MEDS: TYLENOL ORAL SOLUTION 650 MG TUBE (20:04)
--- NOTE | 2024-07-25 23:39 | PTCARENOTE ---
Pt intubated/deeply sedated as ordered. Protective reflexes intact. BIS monitor goal 40-60. Febrile 101.1, cooling blanket on, Tylenol given. NSR/ST on monitor. Levophed off since previous shift. HD catheter changed earlier today, Left radial art
line and right UE PICC maintained. Fent/Versed gtts maintained along with PRN pushes for vent synchrony. Vent settings weaned as tolerated. Pt currently requiring 100% fiO2/ PEEP 12. Suctioning for thick blood tinged secretions. CLRT bed in use. DHT
for meds. No TF at this time. Abdomen rounded/obese/soft. Anuric. Agustin. Will monitor.
[2024-07-26] MEDS: NIMBEX 16 MG IV ×7 (00:16→14:03)
[2024-07-26] MEDS: BENADRYL 50 MG IV (04:30)
--- NOTE | 2024-07-26 04:54 | DOWNTIME ---
Addendum entered and electronically signed by Chaparro Cox RN 07/26/24 14:19:
Correction: Downtime was 07/26/2024 from 0100 to 07/26/2024 at 0415
Original Note:
There was a Pusher Client Service Crew Supervisor Downtime on 07/25/2024 from 0100 to 07/26/2024 at 0415. Downtime documentation of patient's care, including medication administrations, has been reconciled in the electronic record per guidelines. Refer to the
patient's paper chart under the miscellaneous tab to see printed paper medication records and downtime forms.
[2024-07-26 04:58] VITALS: BMI 41.7
[2024-07-26 05:24] LABS: B.E. -5.8 mmol/L; HCO3 23.1 mmol/L (21-28); O2 Saturation % 96.5 % (94-98); PCO2 62 mmHg (35-48); PO2 80 mmHg (83-108)
[2024-07-26 05:25] LABS: O2 Therapy 80%
[2024-07-26 05:27] LABS: pH 7.18 (7.35-7.45)
--- NOTE | 2024-07-26 05:30 | PTCARENOTE ---
Rash noted on arms and legs, along with red face. [employer] SAL[employer] Barnard at bedside for eval. Mild flat rash noted at beginning of shift, but patient also low grade fever. Rash worsened as night went on. Benadryl IV given. Will monitor
[2024-07-26 05:39] LABS: Hematocrit 22.3 % (39.0-52.0); Hemoglobin 7.8 g/dL (13.0-18.0); Mean Corpuscular Hgb 31.2 pg (27.0-31.0); Mean Corpuscular Volume 89.2 fL (80.0-94.0); Mean Platelet Volume 11.2 fL (7.4-10.4); Platelet Count 146 10^3/uL (130-400); Red Cell Dist. Width 15.9 % (11.5-14.5); White Blood Cell Count 26.2 10^3/uL (4.8-10.8)
--- NOTE | 2024-07-26 05:51 | PTCARENOTE ---
Chest xray done to confirm OGT placement. OGT placed to evaluate abdominal distention/rising peak pressures on vent, and hiccups. About 150ml yellowish green initial output. Remains in place for now, need to evaluate DHT vs OGT. Both currently in
place, will sign out to oncoming shift to remove one once decided.
[2024-07-26 06:05] LABS: ALT (SGPT) 129 U/L (0-50); AST (SGOT) 199 U/L (17-59); Albumin 2.5 g/dl (3.5-5.0); Alkaline Phosphatase 220 U/L (38-126); Blood Urea Nitrogen 77 mg/dl (9-20); Calcium 7.1 mg/dl (8.4-10.2); Carbon Dioxide 23 mmol/L (22-30); Chloride 105 mmol/L (98-107); Estimated Creatinine Clearance 16 ml/min; Glucose 104 mg/dl (70-99); Potassium 5.3 mmol/L (3.5-5.1); Sodium 139 mmol/L (135-145); Total Protein 6.1 g/dl (6.3-8.2)
[2024-07-26] MEDS: SUBLIMAZE 100 IV ×2 (06:09→14:08)
[2024-07-26 06:11] LABS: Triglycerides 761 mg/dl (10-149)
[2024-07-26] MEDS: DUONEB 3 ML INH (07:14)
--- NOTE | 2024-07-26 07:37 | PTCARENOTE ---
Assumed care of pt. approx 0700.
Remains intubated/sedated. Sedation w. Versed gtt/Fentanyl. BIS monitoring in place. LOW RASS GOALS.
Plan for HD today line in place. Remains Anuric.
ABG results reviewed w. Off going RN PF ratio remains low.
Off pressors, arterial access in place for monitoring.
On cooling blanket. TMAX per HS team 101.2 --> now 99.9.
--- NOTE | 2024-07-26 07:58 | W.PN.NEPH.PH ---
Today's Communication / Plan
-
HD , with u/f to 3kg as tolerated given hypoxia (PNA, volume, vs ARDs..)
HD again tomorrow
Assessment/Plan
-
Impression:
ANTON
Hyperkalemia
Babesiosis/Sepsis
Anemia
Thrombocytopenia
Vent dependent respiratory failure
Dyslipidemia
Chronic ulcerative colitis
Diabetes
Transaminitis with hyperbilirubinemia
Acidemia with both respiratory and metabolic
Plan:
ANTON:
- Likely related to microangiopathic hemolytic process with subsequent acute tubular injury
-had CRRT for few hrs intermittently on 07/24
-off pressors
-attempt 3kg u/f on HD today as patient now hypoxic, about to be proned
- Red blood cell exchange therapy was provided 07/22
-anuric
-acidemia-resp acidosis exacerbating
- Patient critically ill with vent dependent respiratory failure and renal failure
- 31 minutes critical care time spent with patient
d/w ICU and nursing
Total Time Spent with Patient (in minutes): 31
-
-
Date of Service: July 26, 2024
CC / HPI / ROS
-
Chief Complaint:
ANTON
History of Present Illness:
off pressors
hypoxic and PH 7.18 on ABG
on EPoprostenol for ARDS
fever last night, leucocytosis 26k
Review of Systems:
intubated 100 % fio2, PEEP 10
anuric
Labs
-
Labs:
WBC 26.2 10^3/uL (4.8-10.8) H 07/26/24 05:06
RBC 2.50 10^6/uL (4.70-6.10) L 07/26/24 05:06
Hgb 7.8 g/dL (13.0-18.0) L 07/26/24 05:06
Hct 22.3 % (39.0-52.0) L 07/26/24 05:06
Plt Count 146 10^3/uL (130-400) 07/26/24 05:06
Sodium 139 mmol/L (135-145) 07/26/24 05:06
Potassium 5.3 mmol/L (3.5-5.1) H 07/26/24 05:06
Chloride 105 mmol/L (98-107) 07/26/24 05:06
Carbon Dioxide 23 mmol/L (22-30) 07/26/24 05:06
BUN 77 mg/dl (9-20) H 07/26/24 05:06
Creatinine 6.4 mg/dL (0.7-1.3) H* 07/26/24 05:06
eGFR 9.70 07/26/24 05:06
Glucose 104 mg/dl (70-99) H 07/26/24 05:06
Calcium 7.1 mg/dl (8.4-10.2) L 07/26/24 05:06
Phosphorus 6.3 mg/dl (2.5-4.5) H 07/25/24 15:59
Hml-C-Cohorqounwy Pept 3530 pg/ml 07/24/24 02:26
Albumin 2.5 g/dl (3.5-5.0) L 07/26/24 05:06
Physical Exam
-
Vital Signs:
Vital Signs
Temp Pulse Resp BP Pulse Ox
99.5 F 103 30 124/58 93
07/26/24 07:00 07/26/24 07:18 07/26/24 07:18 07/25/24 09:59 07/26/24 07:35
Cardiovascular:: Regular rate and rhythm
Respiratory:: Bilateral: Coarse
Lung Excursion:: Normal
Abdomen:: Nontender and Soft
Bowel Sounds:: Normal
Extremity Edema:: +1: Bilateral:
Agustin Catheter: Yes
Other Findings::
Gen:intubated , sedated,paralyzed
[2024-07-26] MEDS: SUBLIMAZE 50 MCG IV ×2 (08:43→12:48)
[2024-07-26] MEDS: VERSED 2 MG IV ×3 (08:44→12:47)
[2024-07-26] MEDS: HEPARIN 5000 UNITS SC (08:44)
[2024-07-26] MEDS: PROTONIX IV 40 MG IV (08:44)
[2024-07-26] MEDS: NSS (PRESERVATIVE FREE) 10 ML IV (08:44)
[2024-07-26] MEDS: REFRESH CELLUVISC GEL 1 DROPS OPHTH (08:45)
[2024-07-26 08:57] LABS: B.E. -6.9 mmol/L; HCO3 21.7 mmol/L (21-28); O2 Saturation % 91.6 % (94-98); PCO2 61 mmHg (35-48); PO2 66 mmHg (83-108)
--- NOTE | 2024-07-26 08:57 | PTCARENOTE ---
Addendum entered by Conner Lee RN 07/26/24 09:15:
[employer] updated [facility], Pt. accepted, awaiting bed.
Original Note:
Pt. now proned.
[employer] bedside. calls to [facility] for ECMO Evaluation.
Rash noted on upper arms. [employer] notified, ID made aware.
[2024-07-26 08:59] LABS: pH 7.16 (7.35-7.45)
[2024-07-26] MEDS: STERILE WATER FOR INJECTION 10 ML IV (09:07)
[2024-07-26] MEDS: MERREM 500 MG IV (09:07)
[2024-07-26] MEDS: MEPRON SUSPENSION 750 MG TUBE (09:08)
--- NOTE | 2024-07-26 09:11 | W.PN.ID1 ---
Date of Service
Date of Service: July 26, 2024
Today's Communication
Continue abx. See below...
Assessment / Plan
Acute babesiosis
Clinical sepsis
VDRF
Suspected ARDS
Fevers
Anemia
Elevated LDH
ANTON; on renal replacement therapy
Thrombocytopenia
Elevated bilirubin
Transaminitis
Recommendations:
Patient remains intubated. Increased O2 requirements. Off pressors. Patient remains on PHOTOGRAPHS CURATOR (CRRT ->HD).
Yesterday's parasite load 0%.
Continue with atovaquone (d#8), Azithromycin (d#8). S/P clinda (07/22-07/25)
Continue doxycycline (d#4) for potential Ehrlichia / Anaplasma. Serology and PCR pending. If negative can D/C.
White count trending up, and CXR appears worse, raising concern for possible bacterial pneumonia
Will initiate empiric meropenem dosed for HD.
Sputum culture pending.
Trend white count, hemoglobin, bilirubin.
Follow LFTs; improving
Trend LDH; remains elevated although improving.
Patient remains critically ill, vent dependent in ICU.
Case discussed with Critical Care, who has discussed the case with [facility] for possible ECMO
����������������������������������������������������������
Chief Complaint
-: Fever, Clinical Sepsis and Other (Babesiosis)
Subjective / Review of Systems
Patient seen and examined. Now being proned for oxygenation.
Vital Signs / Physical Exam
Vital Signs
Vital Signs
Temp Pulse Resp BP Pulse Ox
99.5 F 103 30 124/58 87
07/26/24 07:00 07/26/24 07:18 07/26/24 07:18 07/25/24 09:59 07/26/24 08:20
Physical Exam
Constitutional: Acutely Ill and Obese
Head: Normocephalic
Cardiovascular: Regular Rate and S1/S2; Negative S3/S4 or Murmur
Pulmonary: Coarse and Other (ET tube in place to vent.)
Gastrointestinal: Soft, Distended and Decreased Bowel Sounds
Genito-Urinary: Agustin and Clear Urine
Extremities: Edema; Negative Cyanosis or Erythema
Neurological: Other (Sedated)
Lines: HD Cath
Objective Data
Lab Data
Lab Results
07/26/24 05:06
07/26/24 05:06
PT 16.8 Sec (11.4-14.6) H 07/25/24 04:48
INR 1.33 07/25/24 04:48
APTT 38.4 Sec (23.4-35.0) H 07/23/24 04:14
Estimated Creat Clear 16 ml/min 07/26/24 05:06
Lactic Acid Cancelled 07/19/24 23:25
Total Bilirubin 9.0 mg/dl (0.2-1.3) H 07/26/24 05:06
AST 199 U/L (17-59) H 07/26/24 05:06
ALT 129 U/L (0-50) H 07/26/24 05:06
Alkaline Phosphatase 220 U/L (38-126) H 07/26/24 05:06
Most recent labs reviewed.
Micro Results:
07/26/24 05:06 Respiratory Culture - Pending
Transtracheal Aspirate Gram Stain - Pending
07/23/24 04:14 Blood Culture - Preliminary
Blood/Venous No Growth in 72 hours- Final report to follow
07/23/24 04:14 Blood Culture - Preliminary
Blood/Venous No Growth in 72 hours- Final report to follow
07/25/24 04:48 Blood Parasites Smear - Final
Blood/Venous
07/22/24 18:36 Respiratory Culture - Final
Endotracheal Usual Respiratory April
Gram Stain - Final
07/19/24 14:58 Blood Culture - Final
Blood/Venous No Growth - Final Report
07/19/24 13:58 Blood Culture - Final
Blood/Venous No Growth - Final Report
07/24/24 02:26 Blood Parasites Smear - Final
Blood/Venous Babesia species
07/20/24 08:34 Salmonella/Shigella Culture - Final
Feces/Stool No Salmonella, Shigella, Aeromonas or Plesiomonas species
isolated.
Campylobacter Culture - Final
No Campylobacter species isolated.
Shiga Toxin Test - Final
No E. coli Shiga Toxin 1 or 2 detected.
07/23/24 04:14 Blood Parasites Smear - Final
Blood/Venous Babesia species
07/22/24 09:40 Blood Parasites Smear - Final
Blood/Venous Babesia species
07/21/24 03:58 Blood Parasites Smear - Final
Blood/Venous Babesia species
07/20/24 13:09 Blood Parasites Smear - Final
Blood/Venous Babesia species
07/19/24 12:47 Urine Culture - Final
Urine NO GROWTH
07/20/24 08:34 C. difficile GDH Antigen & Toxins - Final
Feces/Stool Negative for toxigenic C.difficile
- Final
Negative for Norovirus GI and GII.
07/19/24 13:59 Blood Parasites Smear - Final
Blood/Venous Babesia species
07/19/24 12:47 Influenza Types A & B (WILFRID) - Final
Nasal Swab Negative for Influenza A & B, NAAT
Negative results must be combined with clinical observations
and patient history.
Nucleic Acid Amplification test (NAAT)performed on the
[employer] platform.
Blood Parasite Smear
07/19/2024
13:59 Babesia Spp.
9%
07/20/2024
13:09 Babesia Spp.
2.7%
07/21/2024
03:58 Babesia Spp.
2.4%
07/22/2024
09:40 Babesia Spp.
1.6%
07/23/2024
04:14 Babesia Spp.
0.9%
07/24/2024
02:26 Babesia Spp.
0.1%
07/25/2024
04:48 Babesia Spp.
0%
Imaging:
07/26/2024 CXR (portable): Marked widespread bilateral parenchymal opacification, predominantly groundglass without significant change, left slightly greater than right. No pneumothorax or significant pleural effusion.
07/25/2024 CXR (portable): Large amount of dense airspace consolidation throughout the left upper and lower lobes, and throughout the right lower and middle lobes containing air bronchograms. There is more mild airspace opacity in the right upper
lobe.
07/22/2024 CXR (portable): Right-sided central venous line seen with tip in SVC. NG tube extends into the abdomen with tip outside of image. No pneumothorax. Widespread bilateral parenchymal opacification is again identified.
07/21/2024 CXR (portable): Comparison to study earlier in the same day there are again seen bilateral areas of parenchymal opacification at least in part could be groundglass with some air bronchograms. No pneumothorax or significant pleural
effusion.
Chest X-Ray: Image Reviewed and Report Reviewed
Care Review
Plan reviewed with: Physician (Critical Care)
--- NOTE | 2024-07-26 09:22 | W.PN.HOSP.TC ---
Addendum entered and electronically signed by Aster Leon MD 07/26/24 18:58:
I saw and evaluated the patient independently. I reviewed the resident�s note and agree with findings and plan as documented by Dr. Lr.
GENERAL: well developed, well nourished, obese male in no apparent distress--prone position
HEENT: NC/AT--intubated
HEART: regular rate and rhythm, +S1, +S2
LUNGS : faint crackles at bases bilaterally
ABDOM: soft, nontender, nondistended, + bowel sounds
EXT: no cyanosis, clubbing--4+ edema x 4 extremities--HD cath--soft limb restraints
NEUROLOGIC: sedated
: page cath
SKIN: maculopapular rash on back, extensor surfaces arms/legs
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
ID/rn hospice
VDRF from Acute hypoxic respiratory failure Likely from ARDS due to sepsis--cont vent--increased FIO2 requirements--cont flolan for 72H--trying to dialyze fluid off to help with oxygenation--following CXR and ABGs--change sedation to versed
drip--now on paralytics and proning, ECMO at [facility] since no improvement--apprec intensivists--CXR with severe bilateral pna vs ARDS?--with elevated WBC count, VAP--adding meropenem as per ID
ANTON--creat rising--likely from microangiopathic hemolytic process with subsequent acute tubular injury--did not tolerate CRRT--getting standard dialysis--apprec renal
Hemolytic anemia--from parasitemia--s/p red blood cell exchange--hopefully will also improve oxygenation--trend HGB--apprec heme/onc
Hyponatremia/hyperkalemia/hypocalcemia--correcting with HD--Continue to monitor electrolytes
Dermatitis- Likely contact dermatitis in the setting of sweating and being bedbound--Benadryl/topical hydrocortisone as needed
History of ulcerative colitis--Holding mesalamine
Thrombocytopenia-resolved
Elevated LFTs--CT abdomen/pelvis with fatty infiltration of liver--with some component of hemolysis--trend
Hypertriglyceridemia--likely from propofol plus obesity---monitor
DVT proph--SC heparin
CODE STATUS--Full code
pt oxygen requirements changed, now with resp acidosis--ECMO and transfer to [facility]
Original Note:
Today's Communication/Plan
-
Transfer to [facility]
Assessment / Plan
Assessment / Plan
A/P:
1. Acute Hypoxic Respiratory Failure (Vent Day 4)
- ARDS vs Pulmonary Edema vs Pneumonia
- Given initial response to hemodialysis and now worsening of respiratory condition and increasing WBC count s/p eradication of parasite, suspect pneumonia
- Vent Settings RR 33 TV 450 PEEP 10 FiO2 100 this AM
- Vent Settings per Conventions Assistant
- ABG (07/25): pH 7.22 pCO2 49, HCO3 20, pO2 90
- ABG (07/25pm): pH 7.31 pCO2 49, HCO3 24.7, pO2 71
- ABG (07/26): pH 7.16 pCO2 61 pO@ 66 bicarb 27.1 representing respiratory acidosis
- CXR (07/25): SEVERE BILATERAL PNEUMONIA which appears unchanged.
- CXR (07/26): Widespread bilateral opacification without significant change
- Versed and Fentanyl for sedation/analgesia. Nimbex for paralysis as needed
- Appreciate PCCM Recommendations
- PRN Paralytics
- Transfer started for ECMO at [facility]
- Appreciate ID recommendations
- Start meropenem
2. Septic Shock 2/2 Bloodborne Parasitic Infection
- Stable BP today, even in setting of HD.
- Off of pressors today
- MAP Goal 65; may need uptitration during HD
3. Babesiosis:
- Appreciate ID Recommendations
- Continue ABx: azithromycin, atovaquone. Status post clinda
- Also on doxycycline due to possible coinfection.
- Lyme's Screen Negative
- Follow up Ehrlichia
- Significant parasitemia on presentation 9%--> Parasite Load down to 0.1% today.
- LDH downtrending, hopefully in the setting of decreased hemolysis
- Follow-up WBC count, LFTs, LDH. Monitor white count and temperature curve.
4. Acute Kidney Injury
- Likely ATN oliguric-probably microangiopathic hemolytic process leading to acute tubular injury.
- CRRT started on 07/24; only 7 hours done yesterday due to clogged tubing; IR replaced today; Hemodialysis started instead.
- Appreciate Nephrology Recommendations
- BMP improved after dialysis yesterday, scheduled for dialysis again today. Unsure if this will be here or at [facility].
5. 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
- Red Cell Exchange Transfusion - 07/23
- Continue to monitor Hb Daily; parasite load down to 0.1%
6. Transaminitis
- Downtrending
- CT ABd/Pelv and US show fatty infiltration
- Values more likely represent hemolysis
- Continue to monitor CMP daily
7. Dermatitis
- Likely contact dermatitis in the setting of sweating and being bedbound
- Noticed today because he was proned
DVT prophylaxis:Heparin SQ
CODE STATUS:Full
Diet: NG Tube - Hold for hypertriglyceridemia
Anticipated Discharge: Today
Subjective/Interval History
-
Date of Service: July 26, 2024
Patient seen and examined. Condition noted to worsen over night. Yesterday, patient received hemodialysis day#1 with 2.5 kg taken off and apparent improvement in condition. Overnight however, patient's respiratory condition worsened. Patient was
proned, paralyzed and transfer protocol was started this a.m. Patient to be transferred to [facility] for ECMO support.
Objective Data
-
Labs:
Laboratory Results
07/26/24 07/26/24
05:06 08:47
WBC 26.2 H
Hgb 7.8 L
Hct 22.3 L
Plt Count 146
HCO3 23.1 21.7
Sodium 139
Potassium 5.3 H
Chloride 105
Carbon Dioxide 23
BUN 77 H
Creatinine 6.4 H*
Glucose 104 H
Calcium 7.1 L
Total Bilirubin 9.0 H
AST 199 H
ALT 129 H
Alkaline Phosphatase 220 H
Vital Signs:
Vital Signs
Temp Pulse Resp BP Pulse Ox
98.9 F 103 30 124/58 87
07/26/24 09:00 07/26/24 07:18 07/26/24 07:18 07/25/24 09:59 07/26/24 08:20
I&O
07/25/24 07/26/24 07/27/24
06:59 06:59 06:59
Intake Total 2742.5 / 2889.5 1595.7 / 1620.2 24.5 / 24.5
Output Total 1644 / 1649 37 / 37 0 / 0
Balance 1098.5 / 1240.5 1558.7 / 1583.2 24.5 / 24.5
Review of Systems
-
Unable to obtain full review of systems at this time due to: Patient Intubation and Other (Sedation/medication induced paralysis)
Physical Exam
-
General: Other (Sedated, in prone positioning, ventilated)
HEENT: Normocephalic and Atraumatic
Respiratory: Crackles (Bibasilar), Non Labored Respirations and Other (ET tube in place: Good air entry, mechanical breath sounds); Negative Wheezes
Cardiac: Regular Rhythm and S1/S2
GI: Soft and Distended
Musculoskeletal: No Clubbing, No Cyanosis, Edema, Right Lower Extrem (1+) and Edema, Left Lower Extrem (1+)
Skin: Warm, Dry and Rash (On the extensor surfaces of the arms, posterior aspects of the shoulders, upper and mid back)
Neuro: Sedated
Data Reviewed
-
Diagnostic Radiology: Image personally visualized and interpreted and Report Reviewed by me
Medical Tests (Nuc Med, Echo etc): Report Reviewed by me
Labs: Labs Reviewed by me
--- NOTE | 2024-07-26 09:43 | CM ---
Patient for transfer to [facility] today, pending assessment for ECMO per resident. Resident and Attending aware and completing paperwork. CM will continue to follow for discharge planning needs.
Plan; transfer to [place] pending medical treatment plan
[2024-07-26] MEDS: SODIUM BICARBONATE 50 MEQ IV (09:48)
[2024-07-26] MEDS: VIBRAMYCIN 260 MG IV (09:51)
--- NOTE | 2024-07-26 10:12 | W.PN.INTV ---
Today's Communication / Plan
Recommendations
Mechanical ventilation settings adjusted
Continue deep sedation
As needed paralytics
Start prone positioning
Meropenem started for possible superimposed bacterial pneumonia
Continue azithromycin/atovaquone
Follow H&H
If patient stays afternoon then dialysis will be performed.
Patient to be transferred to [facility] for ECMO-ECMO team will be heading our way at noon.
Discussed with family.
Prognosis is guarded
Assessment
-
Assessment: 53-year-old male occasional cigar smoker with a past medical history of hyperlipidemia, GERD and ulcerative colitis who presents for fevers, chills, body aches and dark urine. His fevers have been ongoing for about 2 weeks and he has
been having a fever almost every day up to 102 �F. He went to urgent care 4 days prior to arrival and had blood work there showing low platelets with otherwise unremarkable results, per the patient. He was told he likely has a virus. The patient
has been appearing more yellow skinned over the last 24 hours prior to arrival and his urine appeared darker so he came into the hospital. Patient has not seen any ticks specifically on him but he is in his garden routinely. On admission, he was
afebrile to 99.5 �F, pulse rate 116, respiratory rate 20, BP 133/107 and saturating 97% on room air. Initial labs showed Hb 13.1, WBC 5.8, platelet count 36, 13% bands, INR 1.21, sodium 134, T. bili 8.4, AST 318, ALT 284, and urinalysis was
suggestive of UTI with positive nitrites, +2 leukocyte esterase and many urine bacteria. Acetaminophen level was negative and Lyme serology + hepatitis B and C titers/antibodies were negative. Initial flu swab was positive and blood parasite smear
showed Babesia species. 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 Initial CXR showed concern for left basilar
pneumonia. In the ER he was given a total of 2 L NS 0.9%, Zithromax and Zosyn. He was initially admitted to telemetry for further management with ID consulted. Patient had increasing oxygen requirements with worsening bilateral groundglass
opacities on CXR. Patient was transferred to the IMU on 07/20. On 07/22, he had worsening oxygen requirements while on high flow nasal cannula at 100% FiO2. Patient transferred to the ICU for further care and educational interpreter services consulted for
additional management/recommendations.
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
Impression:
#Acute respiratory failure with hypoxia and hypercapnia due to above requiring mechanical ventilation (intubated 07/22/2024 by Sec Accountant)
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
#Acute noncardiogenic pulmonary edema due to above with ARDS
#Circulatory shock due to distributive shock from sedation as well as sepsis
# Acute kidney injury requiring dialysis since 07/24/2024
#Dqo-cfvj-ivhipiusaui hemoptysis (blood-tinged phlegm)
#Intravascular hemolysis with acute anemia due to babesiosis
#Thrombocytopenia
#Transaminitis with hyperbilirubinemia (due to intravascular analysis)
#Morbid obesity (BMI: 40)
#Hepatomegaly with diffuse hepatic steatosis
#History of ulcerative colitis on mesalamine
#GERD
Plan:
- Patient found to have anemia with signs of intravascular hemolysis and his Babesia smear showed 9% parasitemia; initial CT A/P showed hepatomegaly with old splenic infarcts and/or hemangiomas
- Transitioned to noninvasive ventilation on 07/22 however due to worsening bilateral pulmonary opacities seen on CXR with suspected developing ARDS, he was electively intubated on 07/22.
-
Acute respiratory failure require mechanical ventilation day #4
ARDS
Unfortunately, overnight with worsening oxygenation, worsening pulmonary mechanics compared to last night.
Chest x-ray 07/26/2024: Persistent bilateral infiltrates, worse on the left lower lobe.
With worsening leukocytosis, increased phlegm production through the ET tube suspect superimposed bacterial pneumonia.
-
Assist-control 450/30/+10/100%.
ABG 07/26/2024: (8:47 AM)-7.16/61/66
ABG 07/25/2024 4:48 AM: 7.22/49/90-80% FiO2/post 10.
Prone position is started 07/26/2024 9 AM.
Continue low volume/protective lung ventilatory strategy.
Peak pressure 33-Plateau pressure 30.(Worsening comparatively to yesterday)
Will give 1 dose of sodium bicarbonate. A drip may be needed. His metabolic acidosis component has improved postdialysis.
- Maintain plateau pressure <30 and titrate FiO2 + PEEP to keep SpO2 >88-90%
- Permissive hypercapnia.
- prn paralytics with Nimbex if needed for ventilator asynchrony-not using.
- Suspect patient have some degree of volume overload.
CRRT started 07/24/2024-overnight not as effective-surgical was clotted. Line was clotted.
Start hemodialysis today 07/25/2024-discussed with nephrology.
- Day #4 of Flolan-will taper off.
- Continue aspiration precautions; keep HOB >30-45�
- Continue DuoNebs TID and continue prn nebulized bronchodilators - not currently bronchospastic
- Daily CXR + blood gas
- Daily vent adjustments as needed based on blood gas and SaO2
Dr. Martinez discussed with ICU team at [facility] on 07/26/2024 to request evaluation for ECMO. Patient has been accepted.
Multiple discussions with family, multiple specialist, primary team. Patient will be transferred at some point today.
ECMO team is coming to cannulate.
Continue with current care.
Continue sedation for RASS score-0 to -2. Deep sedation.
Paralytics as needed
Propofol discontinued 07/24/2024 due to hypertriglyceridemia
Continue fentanyl and Versed drip.
Nimbex as needed.
-Follow triglycerides.
Septic shock: H resolved-not requiring vasopressors at the moment.
Levophed discontinued 07/25/2024.
Vasopressin discontinued .
-
Case discussed with infectious disease: Will continue atovaquone/Zithromax. Doxycycline.
Due to worsening leukocytosis, worsening ET tube secretions, worsening pulmonary mechanics and oxygenation-suspected bacterial superinfection.
Sputum culture sent
Meropenem started 07/26/2024.
-
Babesiosis:
Parasitemia has cleared 07/25/2024.
Parasitemia decreased to 0.1% 07/24/2024 decreased from 9% parasitemia
LDH trending lower-still in the s.
Hemoglobin decreased overnight-multifactorial due to hemolysis and critical illness. Status post 1 unit of packed red blood cells 07/24/2024.
Follow H&H
-
Status post RBC exchange transfusion 07/22/2024.
Not coagulopathic
Normal platelet count
Hematology following the patient
- Trend H/H and transfuse if needed to keep Hb>7-8g/dL; keep plt>50k
- Patient does have acute pulmonary edema and this is suspected to be from his babesiosis. Prior echo in August 31 showed preserved biventricular function with LVEF 60%
- Echocardiogram 07/25/2023: Diastolic dysfunction. Normal LVEF. Normal RV function.
- Continue dialysis as able to achieve negative fluid balance. Tolerated well on 07/25/2024 without the need of vasopressors.
-Acute kidney injury-oliguric
Weight significantly elevated since admission.
- Nephrology Case discussed with Dr. Martinez 07/25/2024. Transition from CRRT to hemodialysis as patient has clotting issues. Hemodynamics have improved.
- Started CRRT 07/24/2024-discontinued 07/25/2024 energy efficient site manager due to clotting issues.
- Renally adjust all medications/antibiotics
- Maintain MAP >65-70 to help perfuse kidneys
- Will give 1 dose of bicarbonate to help with metabolic acidosis component. 07/26/2024.
Repeat frequent labs.
-
Abnormal LFT:
Continue trending LFTs including LDH -stable to trending lower. Likely due to ongoing hemolysis.
Right upper quadrant ultrasound with fatty liver.
- Maintain euglycemia with goal BG 140-180; check A1C
-Bowel regimen will be started 07/26/2024. Abdomen is soft not distended.
- PPI for prophylaxis.
- DVT ppx: Continue HSQ as his H/H is stable today and platelet count has been improved and currently not having bloody ETT secretions
Hold nutrition for now due to hypertriglyceridemia. NG tube in place
Discussed with nutrition.
Code status: Full code
Continue ICU level of care for this critically ill patient.
Dr. Martinez extensively discussed with family members at the bedside. All questions answered: 07/24/2024, 07/25/2024, 07/26/2024 extensively and multiple times throughout the day.
Discussed with infectious disease and nephrology, primary team, interventional radiology on 07/25/2024.
Dr. Martinez discussed with critical care/ECMO team at [facility] 07/26/2024. Patient has been accepted.
Discussed in multidisciplinary rounds.
Critical care statement: A total of 120 minutes of critical care time was provided for this patient today. This includes management of unstable vital signs, evaluation of the patient at bedside, reviewing the patient's pertinent medical records
including radiographs, microbiology, laboratory evaluations, and discussion with primary team, consultants, pharmacy, nutrition, physical therapy, case management, charge nurse, critical care nursing, and respiratory therapy.
Data:
CXR 07/22/2024:
VERY SEVERE BILATERAL AIRSPACE DISEASE most suggestive of VERY SEVERE BILATERAL PNEUMONIA (left greater than right) which has markedly increased since 07/19/2024. Acute respiratory distress syndrome (ARDS) or noncardiogenic pulmonary edema are
alternative diagnostic possibilities.
CXR 07/23/2024:
1. SEVERE BILATERAL AIRSPACE CONSOLIDATION which appears unchanged and is likely secondary to SEVERE BILATERAL PNEUMONIA. Severe noncardiogenic pulmonary edema or acute respiratory distress syndrome (ARDS) are alternative diagnostic possibilities.
2. Mild elevation of the right hemidiaphragm.
3. Endotracheal tube, right IJ hemodialysis catheter, and nasogastric feeding tube remaining in place.
Subjective Dataa
Subjective Data
Date of Service:
Date of Service: July 26, 2024
Chief Complaint: Sec Accountant Follow Up (Septic shock/ARDS)
Subjective:
Remains critically ill
Sedated
On mechanical ventilation
Overnight worsening oxygenation.
Review of Systems
General: Unobtainable - Sedation
Objective Data
Data Reviewed
Vital Signs / I&O / Oxygen:
Vital Signs
Temp Pulse Resp BP Pulse Ox
98.9 F 105 33 124/58 91
07/26/24 09:45 07/26/24 09:45 07/26/24 09:45 07/25/24 09:59 07/26/24 09:45
Intake and Output
07/25/24 07/26/24 07/27/24
06:59 06:59 06:59
Intake Total 2742.5 / 2889.5 1595.7 / 1620.2 98.0 / 98.0
Output Total 1644 / 1649 37 / 37 20 / 20
Balance 1098.5 / 1240.5 1558.7 / 1583.2 78.0 / 78.0
SaO2 [A/C] 91
SaO2 91
Nasal Cannula flow liters per 55
minute
Physical Exam
General: Respiratory Distress (negative), Comfortable, Chills (negative) and Sweats (negative)
HEENT: Normocephalic and Anicteric
Cardiovascular: S1-S2 and Peripheral Edema (+1 bilateral lower extremity edema)
Respiratory: Wheeze (negative), Crackles (Bilateral), Rhonchi (negative), Non-Labored Respirations and ET Tube (Mechanical breath sounds heard bilaterally)
GI: Soft, Distended (Abdominal obesity), Non Tender and Normal Bowel Sounds
Neurology: Other (Sedated; pupils 2 mm bilaterally and sluggish) and Other (Occasionally overbreathing the ventilator.)
Skin: Warm, Dry, Cyanosis (negative), Jaundice (negative) and Rash (Macular upper extremities)
Labs/Micro/Reports
Lab Data
07/26/24 05:06
07/26/24 05:06
Laboratory Results
07/25/24 07/25/24 07/26/24
10:55 15:59 05:06
pH 7.20 L 7.31 L 7.18 L*
pCO2 53 H 49 H 62 H
pO2 74 L 71 L 80 L
HCO3 20.7 L 24.7 23.1
O2 Delivery Level 80%
07/26/24
08:47
pH 7.16 L*
pCO2 61 H
pO2 66 L
HCO3 21.7
O2 Delivery Level
Microbiology
07/23/24 04:14 Blood/Venous Blood Culture - Preliminary
No Growth in 72 hours- Final report to follow
07/23/24 04:14 Blood/Venous Blood Culture - Preliminary
No Growth in 72 hours- Final report to follow
07/25/24 04:48 Blood/Venous Blood Parasites Smear - Final
07/22/24 18:36 Endotracheal Respiratory Culture - Final
Usual Respiratory April
07/22/24 18:36 Endotracheal Gram Stain - Final
07/19/24 14:58 Blood/Venous Blood Culture - Final
No Growth - Final Report
07/19/24 13:58 Blood/Venous Blood Culture - Final
No Growth - Final Report
07/24/24 02:26 Blood/Venous Blood Parasites Smear - Final
Babesia species
07/20/24 08:34 Feces/Stool Salmonella/Shigella Culture - Final
No Salmonella, Shigella, Aeromonas or Plesiomonas species
isolated.
07/20/24 08:34 Feces/Stool Campylobacter Culture - Final
No Campylobacter species isolated.
07/20/24 08:34 Feces/Stool Shiga Toxin Test - Final
No E. coli Shiga Toxin 1 or 2 detected.
07/23/24 04:14 Blood/Venous Blood Parasites Smear - Final
Babesia species
[2024-07-26] MEDS: VERSED 50 IV (11:01)
[2024-07-26 11:05] LABS: B.E. -6.7 mmol/L; HCO3 21.6 mmol/L (21-28); O2 Saturation % 95.6 % (94-98); PCO2 58 mmHg (35-48); PO2 72 mmHg (83-108)
[2024-07-26 11:08] LABS: pH 7.18 (7.35-7.45)
[2024-07-26 11:15] LABS: INR 1.27; PT 16.4 Sec (11.4-14.6)
[2024-07-26 11:16] LABS: APTT 33.4 Sec (23.4-35.0)
--- NOTE | 2024-07-26 11:16 | PTCARENOTE ---
Report given to ROBBIE CAZARES RN.
Cannulation team en route at noon.
-2 units PRBC cross matched. on hold.
-Epi/Norepi gtt bedside.
-recent coags + ABG
[2024-07-26] MEDS: SODIUM BICARBONATE 1150 MEQ IV (11:36)
--- NOTE | 2024-07-26 11:51 | W.PN.ONC ---
Today's Communication / Plan
-
Continue to monitor CBC
Transfuse pRBC if Hgb drops <7
Patient to be transferred to [facility] today for ECMO
Impression
Impression
Severe babesiosis
ARDS complicated by multiorgan failure.
Hemolytic anemia, stable
Hepatic failure as evidenced by elevated direct bilirubin and transaminases
Progressive renal insufficiency,now on CRRT
Severe bilateral pneumonia
Hypoxic respiratory failure status post intubation
Mild hepatosplenomegaly
Plan
Plan
Patient is status post Red cell exchange x 1 and pRBC transfusion x7.
Parasite load has decreased to 0% as of 07/25 - no role for additional Red cell exchange
CCRT per primary team
Antibiotics per ID and primary team
Patient to be transferred to [facility] today for ECMO
Subjective/Objective
Subjective/Objective
Remains critically ill. Ventilated and sedated
Vital Signs:
Vital Signs
Temp Pulse Resp BP Pulse Ox
98.9 F 105 33 124/58 92
07/26/24 09:45 07/26/24 09:45 07/26/24 09:45 07/25/24 09:59 07/26/24 11:08
Lab Results:
Laboratory Data
WBC 26.2 10^3/uL (4.8-10.8) H 07/26/24 05:06
Hgb 7.8 g/dL (13.0-18.0) L 07/26/24 05:06
Plt Count 146 10^3/uL (130-400) 07/26/24 05:06
PT 16.4 Sec (11.4-14.6) H 07/26/24 10:54
INR 1.27 07/26/24 10:54
APTT 33.4 Sec (23.4-35.0) 07/26/24 10:54
eGFR 9.70 07/26/24 05:06
--- NOTE | 2024-07-26 11:53 | PTCARENOTE ---
[facility] updated.
New type and screen sent, updated coags.
All requested drips bedside.
Awaiting ECMO team.
--- NOTE | 2024-07-26 11:53 | W.PN.UPDATE ---
Update Note
Progress Note Update
ABG 10:54 AM: Continues to be acidotic pH 7.18/58/72.(On prone positioning/assist-control 450/33/100%/+10)
1 amp of IV bicarbonate was given
Bicarbonate drip started
Dialysis on hold as the patient is prone and also about to get cannulated for ECMO in the next hour or so.
Continue with care as above.
[2024-07-26 12:12] LABS: INR 1.22; PT 15.9 Sec (11.4-14.6)
[2024-07-26 12:13] LABS: APTT 33.6 Sec (23.4-35.0)
[2024-07-26] MEDS: DUONEB INH (13:38)
[2024-07-26] MEDS: VELETRI 50 MCG INH (13:58)
[2024-07-26] MEDS: VELETRI 50 ML INH (13:58)
[2024-07-26 14:30] VITALS: BP 121/51
[2024-07-26 14:51] VITALS: BP 124/58
[2024-07-26 14:53] VITALS: BP 127/61
[2024-07-26 15:06] VITALS: BP 126/55
[2024-07-26 15:16] LABS: B.E. -6.6 mmol/L; HCO3 19.7 mmol/L (21-28); O2 Saturation % 99.7 % (94-98); PCO2 42 mmHg (35-48); PO2 156 mmHg (83-108); pH 7.28 (7.35-7.45)
--- NOTE | 2024-07-26 15:51 | PTCARENOTE ---
Pt. Cannulated by [facility] ECM[facility] team.
Nimbex given prior to procedure, x2 unit PRBCs.
Remained hemodynamically stable once on pump, repeat ABG results relayed to cannulating Team, --> stable for transport.
Transported to [facility] w[facility]o issue. [facility] Rate adjustment per Transport team.
-Midazolam gtt.
-Fentanyl gtt.
Belongings sent w. Family, family bedside prior to departure.
Pt. departed unit [id number].
[2024-07-26 15:55] VITALS: BP 126/61
--- NOTE | 2024-07-26 17:51 | W.DCSUMMARY ---
Discharge Summary
Discharge Data
Date of Admission: 07/19/24
Date of Discharge: 07/26/24
-
Pending Results: No
Hospital Course
Discharging Physician : Dr. Leon, Dr. Lr
Disposition : [facility] [place]
Principal Discharge diagnosis : Severe babesiosis, acute hypoxic respiratory failure secondary to ARDS/pneumonia, septic shock secondary to babesiosis, ANTON, hemolytic anemia
Hospital Course : 53-year-old male with a past medical history of hyperlipidemia, GERD and ulcerative colitis who presents with fevers, chills, body aches and dark urine. His fevers have been ongoing for about 2 weeks and he has been having a
fever almost every day up to 102 �F. He went to urgent care 4 days prior to arrival and had blood work there showing low platelets with otherwise unremarkable results, per the patient. The patient has been appearing more yellow skinned over the
last 24 hours prior to arrival and his urine appeared darker so he came into the hospital. Patient has not seen any ticks specifically on him but he is in his garden routinely.
On admission, he was afebrile to 99.5 �F, pulse rate 116, respiratory rate 20, BP 133/107 and saturating 97% on room air. Initial labs showed Hb 13.1, WBC 5.8, platelet count 36, 13% bands, INR 1.21, sodium 134, T. bili 8.4, AST 318, ALT 284, and
urinalysis was suggestive of UTI with positive nitrites, +2 leukocyte esterase and many urine bacteria. Acetaminophen level was negative and Lyme serology + hepatitis B and C titers/antibodies were negative. Initial flu swab was positive and blood
parasite smear showed Babesia species. 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 Initial CXR showed concern for left
basilar pneumonia. In the ER he was given a total of 2 L NS 0.9%, Zithromax and Zosyn and admitted to telemetry for further management.
ID consulted. Patient was started on atovaquone and azithromycin. Noted to have 9% parasitemia.
Patient had increasing oxygen requirements with worsening bilateral groundglass opacities on CXR. Patient was transferred to the IMU on 07/20. As patient had worsening oxygen requirements while on high flow nasal cannula at 100% FiO2, he was
transferred to ICU on 07/22/2024. Patient's parasite burden has gone down on repeat check, but clinically worsening so IV clindamycin and doxycycline (coverage for other tickborne illnesses�ehrlichiosis/anaplasmosis) was added.
Patient had severe ARDS, was intubated on 07/22/2024, was also started on Flolan. Alternate prone/supine positioning. White count trended up, and CXR appeared worse, raising concern for possible bacterial pneumonia- initiated on empiric meropenem.
Due to worsening organ failure, hemolytic anemia patient had to undergo exchange transfusion on 07/22/2024.
Patient developed septic shock and required pressor support (required 2 pressors, weaned off as tolerated).
Patient developed severe ANTON, nephrology was consulted and/was started on CRRT on 07/24/2024. Renally adjusted on medication/antibiotics. Also started on bicarb drip. CRRT was discontinued on 07/25/2024 due to clotting issues. Patient later
underwent hemodialysis X 1.
After multiple discussions with the family members and other specialists involved in the patient's care,optimization specialist reached out to ICU team at [facility] on 07/26/2024 to request evaluation for ECMO. Patient has been accepted.
After successful cannulation, patient has been flown to [facility].
Important imaging findings :
CT abdomen pelvis�07/19/2024�
1. Questionable cystitis. Otherwise no significant acute abnormality identified in the abdomen or pelvis, as described above.
2. Bibasilar pneumonia.
3. Hepatomegaly and diffuse hepatic steatosis.
4. 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
Chest x-ray�07/22/2024�VERY SEVERE BILATERAL AIRSPACE DISEASE most suggestive of VERY SEVERE BILATERAL PNEUMONIA (left greater than right) which has markedly increased since 07/19/2024. Acute respiratory distress syndrome (ARDS) or noncardiogenic
pulmonary edema are alternative diagnostic possibilities.
Chest x-ray�07/26/2024�Widespread bilateral opacification without significant change. Some of several differential diagnostic possibilities include pneumonia, ARDS and pulmonary edema.
Discharge Plan
-
Patient Disposition: Acute Care Hospital
Discharge Date and Time
Discharge Date/Time: 07/26/24 16:20
Print Language: ETHIOPIAN
== END 2024-07-26 16:20 | disposition short-term general hospital (02) | DRG 870 ==
LOC: ICU 18:28
PROVIDERS: Hospitalist; Internal Medicine; Internal Medicine Critical Care Medicine; Nurse Practitioner Primary Care; Physician Assistant; Radiology Diagnostic Radiology; Radiology Vascular & Interventional Radiology; Registered Nurse; Student in an Organized Health Care Education/Training Program; ADMITTING PHYSICIAN Internal Medicine; ATTENDING PHYSICIAN Internal Medicine; CONSULT PHYSICIAN Internal Medicine Critical Care Medicine; CONSULT PHYSICIAN Internal Medicine Hematology & Oncology; CONSULT PHYSICIAN Internal Medicine Infectious Disease; CONSULT PHYSICIAN Specialist; EMERGENCY PHYSICIAN Emergency Medicine; FAMILY PHYSICIAN Hospitalist
PROC: 5A0935A Assistance with Respiratory Ventilation, Less than 24 Consecutive Hours, High Flow/Velocity Cannula (ICD-10-PCS; 2024-07-21)
PROC: 0DH67UZ Insertion of Feeding Device into Stomach, Via Natural or Artificial Opening (ICD-10-PCS; 2024-07-22)
PROC: 5A1955Z Respiratory Ventilation, Greater than 96 Consecutive Hours (ICD-10-PCS; 2024-07-22)
PROC: 02HV33Z Insertion of Infusion Device into Superior Vena Cava, Percutaneous Approach (ICD-10-PCS; 2024-07-22)
PROC: 0BH17EZ Insertion of Endotracheal Airway into Trachea, Via Natural or Artificial Opening (ICD-10-PCS; 2024-07-22)
PROC: 05HM33Z Insertion of Infusion Device into Right Internal Jugular Vein, Percutaneous Approach (ICD-10-PCS; 2024-07-23)
PROC: 5A1D90Z Performance of Urinary Filtration, Continuous, Greater than 18 hours Per Day (ICD-10-PCS; 2024-07-24)
PROC: 5A1D70Z Performance of Urinary Filtration, Intermittent, Less than 6 Hours Per Day (ICD-10-PCS; 2024-07-25)
PROC: 5A09C5K Assistance with Respiratory Ventilation, 8-24 Consecutive Hours, Intubated Prone Positioning (ICD-10-PCS; 2024-07-26)
DX: A41.89 Other specified sepsis (principal); J80 Acute respiratory distress syndrome; J81.0 Acute pulmonary edema; R65.21 Severe sepsis with septic shock; N17.0 Acute kidney failure with tubular necrosis; K51.90 Ulcerative colitis, unspecified, without complications; B60.00 Babesiosis, unspecified; Z68.41 Body mass index [BMI] 40.0-44.9, adult; Z99.11 Dependence on respirator [ventilator] status; E87.20 Acidosis, unspecified; D58.9 Hereditary hemolytic anemia, unspecified; E87.1 Hypo-osmolality and hyponatremia; R04.2 Hemoptysis; E11.9 Type 2 diabetes mellitus without complications; K21.9 Gastro-esophageal reflux disease without esophagitis; E66.01 Morbid (severe) obesity due to excess calories; E78.00 Pure hypercholesterolemia, unspecified; D69.6 Thrombocytopenia, unspecified; F17.290 Nicotine dependence, other tobacco product, uncomplicated; E87.5 Hyperkalemia; R16.2 Hepatomegaly with splenomegaly, not elsewhere classified; E83.51 Hypocalcemia; R74.02 Elevation of levels of lactic acid dehydrogenase [LDH]; E78.1 Pure hyperglyceridemia; K72.90 Hepatic failure, unspecified without coma; L25.9 Unspecified contact dermatitis, unspecified cause; K76.0 Fatty (change of) liver, not elsewhere classified; W57.XXXA Bitten or stung by nonvenomous insect and other nonvenomous arthropods, initial encounter; Y93.9 Activity, unspecified; Y92.821 Forest as the place of occurrence of the external cause; Z79.84 Long term (current) use of oral hypoglycemic drugs; Z88.8 Allergy status to other drugs, medicaments and biological substances
CPT/HCPCS: 36556; 36580; 36600; 71045; 71046; 74018; 74177; 76700; 76937; 80048; 80053; 80143; 81003; 81015; 82248; 82330; 82805; 82962; 83010; 83605; 83615; 83690; 83735; 83880; 84100; 84478; 85025; 85027; 85379; 85610; 85730; 86618; 86666; 86705; 86706; 86709; 86803; 86850; 86900; 86901; 86920; 87015; 87040; 87045; 87046; 87070; 87077; 87086; 87147; 87205; 87207; 87324; 87340; 87427; 87449; 87502; 87798; 87811; 93005; 93306; 93970; 94002; 94003; 94640; 94644; 94645; 96361; 96365; 96367; 99285; C1752; J1325; J2185; J2250; P9016; P9047; Q5106; Q9967